=== PATIENT | female | born 1935 | race Caucasian/White ===

== ENCOUNTER → 2017-12-14 14:53 | Outpatient (CLI) | payer MEDICARE, SELFPAY ==
--- NOTE | 2017-12-14 15:04 | XR_ITS ---
XR chest 2V Ordering Physician: Foreign Stoddard MD Patient Age: 82 years: Female HISTORY: ITS.REASON: BRONCHITIS cough with TECHNIQUE: PA and lateral chest COMPARISON :January 2010 chest study. As well as cervical spine series from December 2016 FINDINGS left lung clear unremarkable no change Right lung. Minimal density medial RUL-. Question of subtle hazy infiltrate projected over the right first rib & and towards medial right apex. Subtle change here since prior CXR clinical correlation required. However the cervical spine series from December 2016 includes this area and shows some underlying chronic changes at in this region medial right upper lobe. Which in part contribute to this appearance. Also a slight increased markings are seen June 2000 CXR Heart is upper normal in size aorta mildly tortuous magi and mediastinal structures satisfactory Degenerative changes T-spine early marginal osteophytes throughout with degenerative disc space narrowing most evident at T10-T11 level IMPRESSION: 1. Slight hazy appearance medial aspect RUL . This in part reflects chronic changes as seen on previous studies, but question & suspect possible early infiltrate at medial RUL & projected over the right first rib end--. Clinical correlation required
== END ==
PROVIDERS: PCP Family Medicine; Visit Provider Family Medicine
DX: J40 Bronchitis, not specified as acute or chronic (principal)
CPT/HCPCS: 71046

== ENCOUNTER → 2018-04-08 09:52 | Outpatient (CLI) | payer MEDICARE, SELFPAY ==
--- NOTE | 2018-04-08 09:55 | MM_ITS ---
.. MM Dig screening mamm BI w/CAD CAD Screening ORDERING PHYSICIAN : Rey Collier MD PATIENT AGE: 83 years GENDER: Female HISTORY no hormones no new complaints noncontributory family history COMPARISON: Previous mammograms: March 2015, 2015, 2016.: TECHNIQUE: Standard CC and MLO images were obtained. R2 CAD reviewed. FINDINGS: Moderately dense breast bilaterally. Stable mild asymmetry. No new dominant mass nor suspicious calcifications. RIGHT BREAST:No new areas of concern. Follow-up in one year. Previous percutaneous biopsy clip at superior right breast. Upper-outer quadrant. LEFT BREAST:. No significant new findings. Minimal density at the lateral breast on cc view dissipates on MLO view and has been present since studies dating back to at least 2014, 2012. IMPRESSION: Stable mammogram. Follow-up in one year recommended . Moderately dense breast bilaterally but no significant new findings. BI-RADS Category: 2 Benign Finding(s) RECOMMENDED FOLLOW-UP: 1YR - 1 YEAR FOLLOW-UP (A letter has been sent to the patient regarding results of the study.)
== END ==
PROVIDERS: PCP Family Medicine; Visit Provider Obstetrics & Gynecology
DX: Z12.31 Encounter for screening mammogram for malignant neoplasm of breast (principal)
CPT/HCPCS: 77067

== ENCOUNTER 2018-06-07 08:45 | Observation (INO) ==
--- NOTE | 2018-06-07 08:59 | Emergency Department Note ---
ED Disposition Clinical Impression: Chest pain Qualifiers: Chest pain type: precordial pain Qualified Code(s): R07.2 - Precordial pain Disposition: Admitted as Observation Condition on Discharge: Fair Referrals: Foreign Stoddard MD [Primary Care Provider] - Madeleine Mathur MD [Staff Physician] - Time of Disposition: 10:35 - Critical Care Critical Care Time: No Attestation: On , the high probability of a clinically significant, sudden or life threatening deterioration of the following system(s) required my full and direct attention, intervention and personal management. The time I documented below is in addition to time spent performing reported procedures but includes the following listed in this critical care notation. Medical Decision Making - Medical Records Medical records reviewed: Yes: I reviewed the patient's medical records. - Roberto Inquiry Pt receiving controlled substance: No Roberto was queried for this patient: No Vital Signs: 06/07/18 08:46 06/07/18 09:02 06/07/18 09:06 Temperature 98.1 F 98.1 F Temperature Source Oral Oral Pulse Rate [Right Brachial] 62 64 64 Respiratory Rate 20 20 20 Blood Pressure [Right Arm] 133/70 125/62 115/70 Blood Pressure Mean [Right Arm] 91 83 85 Blood Pressure Source [Right Arm] Automatic Cuff Automatic Cuff Automatic Cuff Blood Pressure Position [Right Arm] Supine Sitting Sitting 02 Sat by Pulse Oximetry 97 91 L 92 L Oxygen Delivery Method Room Air Room Air Room Air 06/07/18 09:09 06/07/18 09:21 06/07/18 09:30 Temperature 98.1 F Temperature Source Oral Pulse Rate [Right Brachial] 68 68 60 Respiratory Rate 20 20 16 Blood Pressure [Right Arm] 96/58 115/71 126/64 Blood Pressure Mean [Right Arm] 70 85 84 Blood Pressure Source [Right Arm] Automatic Cuff Automatic Cuff Automatic Cuff Blood Pressure Position [Right Arm] Supine Supine Sitting 02 Sat by Pulse Oximetry 90 L 95 96 Oxygen Delivery Method Room Air Room Air Room Air 06/07/18 09:46 Temperature Temperature Source Pulse Rate [Right Brachial] 64 Respiratory Rate 16 Blood Pressure [Right Arm] 124/68 Blood Pressure Mean [Right Arm] 86 Blood Pressure Source [Right Arm] Automatic Cuff Blood Pressure Position [Right Arm] Sitting 02 Sat by Pulse Oximetry 95 Oxygen Delivery Method Room Air - Lab Data Lab results reviewed: Yes: I reviewed the patient's lab results. Lab Results 06/07/18 08:54: WBC 12.6 H, RBC 5.23, Hgb 16.5 H, Hct 50.8 H, MCV 97.1, MCH 31.4 H, MCHC 32.4, RDW 13.8, Plt Count 238, MPV 8.8, Neut % (Auto) 83.5 H, Lymph % (Auto) 9.8 L, [place] % (Auto) 3.4, Eos % (Auto) 2.9, Baso % (Auto) 0.3, Neut # (Auto) 10.5 H, Lymph # (Auto) 1.2, [place] # (Auto) 0.4, Eos # (Auto) 0.4, Baso # (Auto) 0.0 06/07/18 08:54: Sodium 142, Potassium 3.9, Chloride 106, Carbon Dioxide 27, Anion Gap 12.9, BUN 14, Creatinine 0.72, Estimated Creat Clear 39, Estimated GFR 78, Est GFR ( Amer) 94, Glucose 115 H, Calcium 9.5, Total Bilirubin 0.8, AST 11 L, ALT 20, Alkaline Phosphatase 81, Troponin I < 0.02, Total Protein 7.0, Albumin 3.4, Globulin 3.6 H, Albumin/Globulin Ratio 0.9 L Result diagrams: 06/07/18 08:54 06/07/18 08:54 Orders (Tests/Meds): ED MEDICATIONS Generic Name Dose Route Start Last Admin Trade Name Freq PRN Reason Stop Dose Admin Nitroglycerin 0.4 mg 06/07/18 08:59 06/07/18 09:01 Nitrostat 0.4mg Sl Tablet SL 07/07/18 08:58 0.4 mg Q5MINP PRN Administration Chest Pain Discontinued Medications Generic Name Dose Route Start Last Admin Trade Name Freq PRN Reason Stop Dose Admin Aspirin 324 mg 06/07/18 09:00 06/07/18 09:01 Aspirin 81mg Chewable Tablet PO 06/07/18 09:01 324 mg ONCE ONE Administration Sodium Chloride 1,000 mls @ 999 mls/hr 06/07/18 09:00 06/07/18 09:01 Sod Chlor 0.9% 1000ml Bag IV 06/07/18 10:00 999 mls/hr .Q1H1M CATRACHITA Administration Ondansetron HCl 4 mg 06/07/18 08:59 06/07/18 09:01 Zofran 4mg/2ml Vial IV 06/07/18 09:00 4 mg ONCE ONE Administration Pantoprazole Sodium 40 mg 06/07/18 09:11 06/07/18 09:21 Protonix 40mg Vial IV 06/07/18 09:12 40 mg ONCE ONE Administration Sodium Chloride 8 ml 06/07/18 09:11 06/07/18 09:21 Saline Flush 10ml Syringe IV 06/07/18 09:12 8 ml ONCE ONE Administration ORDERS Category Date Time Status XR chest portable Stat Exams 06/07/18 08:55 Taken Diarrhea Panel, PCR Stat Lab 06/07/18 09:10 Ordered - Radiology Data #1 Image(s): Chest Image Reviewed: Yes I reviewed the patient's radiology results, Yes I reviewed the patient's radiology image Preliminary Findings: Normal/NAD - ECG Data Tracing #1 I reviewed this ECG and interpreted as documented below: NSR with LVH and ? early repolarization changes. ECG initial impression date: 06/07/18 ECG initial impression time: 08:50 Normal Sinus Rhythm: Yes Ischemic changes: non-specific ST-T wave changes Chamber hypertrophy present: LVH ECG compared to prior tracings: there are no prior tracings available for comparison Chest Pain HPI - General Chief Complaint: Chest Pain Stated Complaint: chest pain Time Seen by Provider: 06/07/18 08:51 - History of Present Illness HPI narrative: Woke up with a heaviness in chest this morning around 8AM and nauseated and vomited up roast beef she had for dinner last night. No fever. Says she has had some diarrhea for the past 2 months as well. She has never had any problems with heart before. She quit smoking 45 years ago but she does drink 2 martini's or gin or wine per day Onset (ago): hour(s) Duration: constant Activity at onset: during rest, awoke with symptoms Pain location: substernal Quality: heaviness Pain radiation: none Relieving factors: nothing Exacerbating factors: nothing - Related Data Home Medications Medication Instructions Recorded Confirmed aspirin 81 mg tablet,delayed 81 mg PO DAILY tab 03/23/18 06/07/18 release cyanocobalamin (vit B-12) 1,000 1,000 mcg PO DAILY tab 03/23/18 06/07/18 mcg tablet naproxen sodium 220 mg capsule 220 mg PO BID 03/23/18 06/07/18 ramipril 10 mg capsule 10 mg PO DAILY cap 03/23/18 06/07/18 Allergies Allergy/AdvReac Type Severity Reaction Status Date / Time No Known Allergies Allergy Verified 03/30/18 13:55 [facility] History I have reviewed the patient's past medical history: Yes Medical History: Reports:: Hypertension Other Medical History: Reports: Other Comment: Osteoporosis, hypertension, Stress incontinence, Hernia, Memory loss/ Dementia Other Surgeries: Yes: Other Amputation: No Fractures: Yes Comment: [birth year]- Appendectomy- open. 1971- BTL. 1997- Cholecystectomy -open. Fx. Lt. elbow and wrist. 2009- Fx. Lt. shoulder - Social History Smoking Status: Never smoker Alcohol Intake: never Family Hx:: Stroke, Coronary Artery Disease, Hypertension, Cancer ROS Obtained: Yes All systems reviewed & no additional complaints - Constitutional Constitutional: Reports as per HPI - Eyes Eyes: Reports as per HPI - ENT Ears, Nose, Mouth, and Throat: Reports as per HPI - Cardiovascular Cardiovascular: Reports as per HPI - Respiratory Respiratory: Yes as per HPI - Gastrointestinal Gastrointestingal: Reports: as per HPI Physical Exam - General General appearance: alert, in no apparent distress - Head Head exam: atraumatic - Eye Eye exam: Present: normal appearance - ENT ENT exam: Present: normal exam, normal oropharynx - Neck Neck exam: Present: normal inspection - Chest Chest inspection: Present: normal inspection - Respiratory Respiratory exam: Present: normal lung sounds bilaterally - Cardiovascular Cardiovascular exam: Present: regular rate, normal rhythm - Abdominal Exam Abdominal exam: Present: soft, normal bowel sounds (non tender abdomen) - Extremities Exam Extremities exam: Present: normal inspection - Neurological Exam Neurological exam: Present: alert, oriented X3
[2018-06-07 09:02] LABS: Basophils % 0.3 % (0.1-2.0); Eosinophils # 0.4 K/mm3 (0.0-0.4); Eosinophils % 2.9 % (0.1-12.0); Hematocrit 50.8 % (37.0-47.0); Hemoglobin 16.5 g/dL (12.2-16.2); Lymphocytes # 1.2 K/mm3 (0.7-4.5); Lymphocytes % 9.8 K/mm3 (10-50); Mean Corpuscular HGB Conc 32.4 g/dL (31.8-35.4); Mean Corpuscular Hemoglobin 31.4 pg (27.0-31.2); Mean Corpuscular Volume 97.1 fl (81-99); Mean Platelet Volume 8.8 fl (7.4-10.4); Monocytes # 0.4 K/mm3 (0.1-1.0); Monocytes % 3.4 % (1.7-9.3); Neutrophils # 10.5 K/mm3 (1.8-7.8); Neutrophils % 83.5 % (37.0-80.0); Platelet Count 238 K/mm3 (142-424); Red Blood Count 5.23 M/mm3 (4.20-5.40); Red Cell Distribution Width 13.8 % (11.5-17.5); White Blood Count 12.6 K/mm3 (4.8-10.8)
[2018-06-07 09:15] LABS: Alanine Aminotransferase 20 U/L (12-78); Albumin Level 3.4 gm/dL (3.4-5.0); Albumin/Globulin Ratio 0.9 (1.1-1.8); Alkaline Phosphatase 81 U/L (46-116); Anion Gap 12.9 mEq/L (5-15); Aspartate Amino Transferase 11 U/L (15-37); Bilirubin,Total 0.8 mg/dL (0.2-1.0); Blood Urea Nitrogen 14 mg/dL (7-18); Calcium 9.5 mg/dL (8.5-10.1); Carbon Dioxide 27 mmol/L (21.0-32.0); Chloride 106 mmol/L (98-107); Globulin 3.6 gm/dl (1.3-3.2); Glucose 115 mg/dL (74-106); Potassium 3.9 mmoL/L (3.5-5.1); Sodium 142 mmol/L (136-145)
--- NOTE | 2018-06-07 10:55 | History & Physical Report ---
*Admission Date: 06/07/18 *Chief complaint: chest pain *History of present illness: Ms. Mcgarry is an 83-year-old female with a history of hypertension and osteoporosis who has been experiencing diarrhea for about the last 4-5 weeks. When she was up to the bathroom this morning she had some midsternal chest pressure and then vomited undigested food. She denies shortness of breath, palpitations, or radiation of discomfort. At that time she had her bring her to the emergency room for evaluation. She states that the pressure has persisted. She did receive a nitroglycerin in the emergency room without total relief. At the time of this exam she still has the pressure. With evaluation in the emergency room she was admitted for further evaluation and treatment with cardiology consult. She has already had her echocardiogram. She has had no further nausea or vomiting. She denies any upper respiratory signs or symptoms. She has not had a fever. [facility] [place] History Medical History: Reports:: Hypertension, Osteoporosis Denies:: Chronic Obstructive Pulmonary Disease (COPD), Coronary Artery Disease, Diabetes Mellitus Type 2, Gastroesophageal Reflux Disease(GERD) Other Medical History: Reports: Other (Shingles) Laterality Cases: Bilateral: Cataract Other Surgeries: Yes: Appendectomy, Cholecystectomy, Hernia Repair, Tubal Ligation, Other Amputation: No Fractures: Yes - *Social History Smoking Status: Never smoker Alcohol Intake: never Alcohol Intake Frequency:: 0-2 drinks per day - Psychiatric History Expresses thoughts of harming self/others: None Suicide Plan Description: No Plan *Family Hx:: Stroke, Coronary Artery Disease, Hypertension, Cancer Review of Systems - Constitutional Denies body ache(s), Denies fatigue, Denies fever(s), Denies headache(s), Denies lack of energy - ENT Denies dizziness, Denies ear pain, Denies headache(s), Denies sore throat - *Cardiovascular Reports chest pain, Reports chest pain at rest, Denies shortness of breath, Denies irregular heart rhythm, Denies radiating jaw, neck or arm pain, Denies fast heart rate - *Respiratory Denies chest congestion, Denies cough, Denies shortness of breath - *Gastrointestinal Reports change in stools, Reports loose stools, Reports nausea, Reports vomiting (She vomited once at home. It was mostly undigested food.), Denies abdominal pain, Denies coffee ground vomit, Denies constipation, Denies heartburn, Denies vomiting blood, Denies bright, red blood in stools, Denies black, tarry stools - *Musculoskeletal Reports joint pain (Left knee and back.) - *Neurologic Denies abnormal walking, Denies abnormal speech, Denies unsteadiness, Denies dizziness, Denies headache(s) - Psychiatric Reports abnormal sleep pattern Meds Home Medications Medication Instructions Recorded Confirmed Type aspirin 81 mg tablet,delayed 81 mg PO DAILY tab 03/23/18 06/07/18 History release cyanocobalamin (vit B-12) 1,000 1,000 mcg PO DAILY tab 03/23/18 06/07/18 History mcg tablet naproxen sodium 220 mg capsule 220 mg PO BID 03/23/18 06/07/18 History ramipril 10 mg capsule 10 mg PO DAILY cap 03/23/18 06/07/18 History Donepezil HCl [Aricept 10mg tablet] 10 mg PO HS 06/07/18 06/07/18 History Melatonin 1 mg Tablet 1 mg PO HS 06/07/18 06/07/18 History Tramadol HCl/Acetaminophen 37.5 mg PO NEEDED PRN 06/07/18 06/07/18 History Venlafaxine HCl [Effexor 37.5mg 37.5 mg PO DAILY 06/07/18 06/07/18 History tablet] Vitamin D3 1,000 Unit Cap 1,000 unit PO DAILY 06/07/18 06/07/18 History hydroCHLOROthiazide [HCTZ 12.5mg 12.5 mg PO DAILY 06/07/18 06/07/18 History capsule] Allergies Allergy/AdvReac Type Severity Reaction Status Date / Time No Known Allergies Allergy Verified 03/30/18 13:55 Exam Vital signs and Labs for Last 24 Hours: Temp Pulse Resp BP Pulse Ox 98.7 F 71 20 127/70 97 06/07/18 10:50 06/07/18 10:50 06/07/18 10:50 06/07/18 10:50 06/07/18 10:30 Laboratory Results - last 24 hr 06/07/18 08:54: WBC 12.6 H, RBC 5.23, Hgb 16.5 H, Hct 50.8 H, MCV 97.1, MCH 31.4 H, MCHC 32.4, RDW 13.8, Plt Count 238, MPV 8.8, Neut % (Auto) 83.5 H, Lymph % (Auto) 9.8 L, [place] % (Auto) 3.4, Eos % (Auto) 2.9, Baso % (Auto) 0.3, Neut # (Auto) 10.5 H, Lymph # (Auto) 1.2, [place] # (Auto) 0.4, Eos # (Auto) 0.4, Baso # (Auto) 0.0 06/07/18 08:54: Sodium 142, Potassium 3.9, Chloride 106, Carbon Dioxide 27, Anion Gap 12.9, BUN 14, Creatinine 0.72, Estimated Creat Clear 39, Estimated GFR 78, Est GFR ( Amer) 94, Glucose 115 H, Calcium 9.5, Total Bilirubin 0.8, AST 11 L, ALT 20, Alkaline Phosphatase 81, Troponin I < 0.02, Total Protein 7.0, Albumin 3.4, Globulin 3.6 H, Albumin/Globulin Ratio 0.9 L I & O for Last 24 hours: Intake & Output 06/04/18 06/05/18 06/06/18 06/07/18 11:59 11:59 11:59 11:59 Weight 125 lb Radiology Reports for the Last 24 Hours: Echo results are pending. Chest x-ray 06/07/2018 IMPRESSION: Negative chest, no acute finding - Constitutional no acute distress Comments: Sitting up in the bed working a crossword puzzle. Appears comfortable. - *Routine HEENT Exam Head: Present: normocephalic, atraumatic Eye: Present: PERRL. Absent: conjunctival icterus, scleral injection ENT: Present: mucous membranes moist, nares patent - *Routine Neck Exam Present: supple, full ROM. Absent: carotid bruit, lymphadenopathy, thyromegaly - *Routine Respiratory Exam Present: CTA bilaterally (Anteriorly and posteriorly). Absent: wheezes, crackles - *Routine Cardiovascular Exam Present: RRR, murmur - *Routine Abdominal Exam Present: soft, normoactive bowel sounds. Absent: tenderness, distended, guarding, organomegaly - *Routine Extremities Exam Present: full ROM, pulses intact. Absent: edema, calf tenderness - *Routine Neurological Exam Present: alert, oriented X3 H&P: Result - Labs Labs: Short CBC 06/07/18 Range/Units 08:54 WBC 12.6 H (4.8-10.8) K/mm3 Hgb 16.5 H (12.2-16.2) g/dL Hct 50.8 H (37.0-47.0) % Plt Count 238 (142-424) K/mm3 BMP 06/07/18 08:54 Sodium 142 Potassium 3.9 Chloride 106 Carbon Dioxide 27 BUN 14 Creatinine 0.72 Glucose 115 H Calcium 9.5 Cardiac Enzymes 06/07/18 Range/Units 08:54 Troponin I < 0.02 (0.00-0.06) ng/ml Liver Function 06/07/18 Range/Units 08:54 Total Bilirubin 0.8 (0.2-1.0) mg/dL AST 11 L (15-37) U/L ALT 20 (12-78) U/L Alkaline Phosphatase 81 (46-116) U/L Albumin 3.4 (3.4-5.0) gm/dL Assessment and Plan (1) Diarrhea Current visit: Yes Status: Acute Category: Medical Code(s): R19.7 - Diarrhea, unspecified (2) HTN (hypertension) Current visit: Yes Status: Acute Category: Medical Code(s): I10 - Essential (primary) hypertension (3) Chest pain Current visit: Yes Status: Acute Qualifiers: Qualified Code(s): R07.2 - Precordial pain Category: Medical Code(s): R07.9 - Chest pain, unspecified - Assessment and plan all Dx Assessment and Plan for all problems:: Troponins have been negative 2. Patient continues to have the midsternal pressure sensation. Cardiology is seeing patient at present and will follow their direction. Diarrhea panel has been ordered.
--- NOTE | 2018-06-07 11:54 | Pharmacy Consult Notes ---
[facility] Pharmacy VTE Monitoring - Patient Demographics Admission date: 06/07/18 Report Date: 06/07/18 Time: 11:53 Allergies/Adverse Reactions: Patient Allergies No Known Allergies Allergy (Verified 03/30/18 13:55) Height: 1.65 m Weight: 57.663 kg Patient Problems: Current Active Problems Chest pain (Acute) - VTE Risk Labs: VTE Related Lab Results Hgb 16.5 g/dL (12.2-16.2) H 06/07/18 08:54 Hct 50.8 % (37.0-47.0) H 06/07/18 08:54 Plt Count 238 K/mm3 (142-424) 06/07/18 08:54 BUN 14 mg/dL (7-18) 06/07/18 08:54 Creatinine 0.72 mg/dL (0.55-1.02) 06/07/18 08:54 Estimated Creat Clear 39 mL/min (0-300) 06/07/18 08:54 - Prophylaxis VTE Prophylaxis Ordered?: Yes Types of VTE Prophylaxis: TEDS Knee High Location of Applied Device: Bilateral Lower Extremeties - VTE Diagnosis Confirmed Treatment or plan recommended: Continue Current Treatment
--- NOTE | 2018-06-07 14:36 | Consult Report ---
History of Present Illness Consult date: 06/07/18 Requesting physician: Madeleine Mathur Consult reason: chest pain Chief complaint: chest discomfort, vomiting Additional Medical History:: 1. Hypertension, treated for many years 2. Decreased memory/Alzheimer's, patient is on Aricept with [facility] 3. Mild ETOH use daily 4. Family history of Alzheimer's History of present illness: 83-year-old white female with 4-6 weeks history of progressive diarrhea with some bowel urgency was awakened this morning with chest discomfort which prompted an urgent visit to the bathroom with subsequent vomiting of partially digested material from her supper last evening, in addition to her diarrhea. Patient denies any history of cardiac problems in the past. Patient was brought to the emergency department for further evaluation. She denies any recent antibiotic use. She does relate taking medications for cold-like symptoms in December of this year. She denies any bloody or dark bowel movements. She was admitted for further evaluation. Initial troponins have returned normal 2. EKG is sinus without acute changes. Preliminary echocardiogram has shown normal ejection fraction with only mild mitral and tricuspid regurgitation. Cardiology consulted for evaluation and recommendations. [facility] History Medical History: Reports:: Hypertension, Osteoporosis Denies:: Cancer, Chronic Obstructive Pulmonary Disease (COPD), Coronary Artery Disease, Diabetes Mellitus Type 1, Diabetes Mellitus Type 2, Gastroesophageal Reflux Disease(GERD), MRSA Other Medical History: Reports: Arthritis, Cataracts, Osteoporosis, Other ( Shingles) Laterality Cases: Bilateral: Cataract Other Surgeries: Yes: Appendectomy, Cholecystectomy, Hernia Repair, Tubal Ligation, Other Amputation: No Fractures: Yes - *Social History Educational Level: Completed College Smoking Status: Never smoker Tobacco Type: cigarettes Alcohol Intake: never Alcohol Intake Frequency:: 0-2 drinks per day Substance Use Type: denies use Occupational Status: retired Housing: house Household Members: spouse - Psychiatric History Expresses thoughts of harming self/others: None Suicide Plan Description: No Plan *Family Hx:: Stroke, Coronary Artery Disease, Hypertension, Cancer Meds Home Medications Medication Instructions Recorded Confirmed Type aspirin 81 mg tablet,delayed 81 mg PO DAILY tab 03/23/18 06/07/18 History release cyanocobalamin (vit B-12) 1,000 1,000 mcg PO DAILY tab 03/23/18 06/07/18 History mcg tablet naproxen sodium 220 mg capsule 220 mg PO BID 03/23/18 06/07/18 History ramipril 10 mg capsule 10 mg PO DAILY cap 03/23/18 06/07/18 History Donepezil HCl [Aricept 10mg tablet] 10 mg PO HS 06/07/18 06/07/18 History Melatonin 1 mg Tablet 1 mg PO HS 06/07/18 06/07/18 History Tramadol HCl/Acetaminophen 37.5 mg PO NEEDED PRN 06/07/18 06/07/18 History Venlafaxine HCl [Effexor 37.5mg 37.5 mg PO DAILY 06/07/18 06/07/18 History tablet] Vitamin D3 1,000 Unit Cap 1,000 unit PO DAILY 06/07/18 06/07/18 History hydroCHLOROthiazide [HCTZ 12.5mg 12.5 mg PO DAILY 06/07/18 06/07/18 History capsule] Allergies Allergy/AdvReac Type Severity Reaction Status Date / Time No Known Allergies Allergy Verified 03/30/18 13:55 Review of Systems - *Cardiovascular Reports chest pain - *Respiratory Denies shortness of breath - *Gastrointestinal Reports abdominal pain, Reports loose stools, Denies bright, red blood in stools - *Genitourinary Denies difficulty urinating - *Musculoskeletal Reports back pain - *Neurologic Denies abnormal walking, Denies abnormal speech, Denies unsteadiness, Denies dizziness, Denies headache(s) Exam Vital signs and Labs for Last 24 Hours: Temp Pulse Resp BP Pulse Ox 98.3 F 59 L 18 145/72 95 06/07/18 11:48 06/07/18 11:48 06/07/18 11:48 06/07/18 11:48 06/07/18 11:48 Laboratory Results - last 24 hr 06/07/18 08:54: WBC 12.6 H, RBC 5.23, Hgb 16.5 H, Hct 50.8 H, MCV 97.1, MCH 31.4 H, MCHC 32.4, RDW 13.8, Plt Count 238, MPV 8.8, Neut % (Auto) 83.5 H, Lymph % (Auto) 9.8 L, [place] % (Auto) 3.4, Eos % (Auto) 2.9, Baso % (Auto) 0.3, Neut # (Auto) 10.5 H, Lymph # (Auto) 1.2, [place] # (Auto) 0.4, Eos # (Auto) 0.4, Baso # (Auto) 0.0 06/07/18 08:54: Sodium 142, Potassium 3.9, Chloride 106, Carbon Dioxide 27, Anion Gap 12.9, BUN 14, Creatinine 0.72, Estimated Creat Clear 39, Estimated GFR 78, Est GFR ( Amer) 94, Glucose 115 H, Calcium 9.5, Total Bilirubin 0.8, AST 11 L, ALT 20, Alkaline Phosphatase 81, Troponin I < 0.02, Total Protein 7.0, Albumin 3.4, Globulin 3.6 H, Albumin/Globulin Ratio 0.9 L 06/07/18 10:50: Troponin I < 0.02 I & O for Last 24 hours: Intake & Output 06/05/18 06/06/18 06/07/18 06/08/18 11:59 11:59 11:59 11:59 Weight 127 lb 2 oz - *Routine Neck Exam Absent: JVD, carotid bruit - *Routine Respiratory Exam Present: CTA bilaterally - *Routine Cardiovascular Exam Present: RRR, murmur. Absent: gallop, rubs - *Routine Abdominal Exam Present: tenderness, distended. Absent: guarding, firm, rigid - *Routine Extremities Exam Absent: edema, calf tenderness - *Routine Neurological Exam Present: alert, oriented X3, moving all extremities Assessment and Plan (1) Diarrhea Current visit: Yes Status: Acute Category: Medical Code(s): R19.7 - Diarrhea, unspecified (2) HTN (hypertension) Current visit: Yes Status: Acute Category: Medical Code(s): I10 - Essential (primary) hypertension (3) Chest pain Current visit: Yes Status: Acute Qualifiers: Chest pain type: precordial pain Qualified Code(s): R07.2 - Precordial pain Category: Medical Code(s): R07.9 - Chest pain, unspecified - Assessment and plan all Dx Assessment and Plan for all problems:: 1. Isolated episode of chest pain with normal troponins, normal EKG and essentially normal echocardiogram. Patient is a MARA score of 1 (age greater than 65) and would therefore recommend stress testing with Myoview imaging as an outpatient once patient's diarrhea has improved or resolved. 2. If chest pain does recur, then would consider amlodipine for chest pain and blood pressure. At this point, would not add beta-kezia or diltiazem/ verapamil due to the patient's controlled heart rate in the 50s and 60s.
[2018-06-07 15:48] LABS: Microscopic, Urine URINE MICROSCOPIC (MICROSCOPIC)
[2018-06-07 15:51] LABS: Appearance,Urine CLEAR (Clear); Bilirubin,Urine Negative (Negative); Blood, Urine Negative (Negative); Color,Urine YELLOW (Yellow); Glucose,Urine (UA) Negative (Negative); Ketones,Urine Negative (Negative); Leukocyte Esterase,Urine Negative (Negative); Protein,Urine Negative (Negative); Specific Gravity, Urine <= 1.005 (1.005-1.030); Urobilinogen,Urine 0.2 EU/dl (0.2)
[2018-06-07 16:40] LABS: Bacteria,Urine Trace /lpf
--- NOTE | 2018-06-07 21:13 | Cardiology Report ---
PROCEDURE: 2-D M-mode and color Doppler study INDICATIONS FOR THE TEST: Chest pain + COPD Heart Murmur Tobacco Smoking Palpitations Fatigue+ Syncope Edema Hypertension+Diabetes Mellitus Rheumatic Fever SOB GARCÍA Obesity Hyperlipidemia Family History HD Additional History PATIENT INFORMATION HEIGHT: 65 WEIGHT:125 GENDER: Female B/P:115/70 2-D/M-MODE INTERPRETATION: 2-D MEASUREMENTS OBSERVED VALUES IN CMS Right Ventricular Dimension (RVDd) 2.1 Interventricular Septum (Thickness)(IVsd) 1.0 Left Ventricular Internal Dimensions(LVIDd) 4.0 Left Ventricular Posterior Wall (Thickness)(LVPWd) 0.8 Aortic Root 3.0 Aortic Cusp Separation 1.8 Left Atrial Dimensions (LAD) 3.7 2D 1. Left atrium is mildly enlarged, left ventricle is normal size, mild qualitative concentric left ventricular hypertrophy, visually estimated ejection fraction 55% with no obvious regional wall motion abnormality. 2. The right atrium and right ventricle are mildly enlarged with normal contractility. 3. The aortic valve is minimally thickened and fibrosed. 4. The mitral and tricuspid valve leaflets are minimally thickened 5. The pulmonic valve is poorly visualized. 6. No significant pericardial effusion noted. DOPPLER INTERROGATION: Doppler interrogation of the aortic, mitral and tricuspid valvular presence of mild mitral and tricuspid regurgitation, tricuspid regurgitant jet velocity insufficient for calculation of the right ventricular systolic pressure, grade 1 diastolic dysfunction seen with tissue Doppler evidence of raised left atrial pressure. CONCLUSION: 1. Mild biatrial enlargement, normal left ventricular size, mild concentric left ventricular hypertrophy, visually estimated ejection fraction 55% with no obvious regional wall motion abnormality, grade 1 diastolic dysfunction seen with tissue Doppler evidence of raised left atrial pressure. 2. Mild mitral and tricuspid regurgitation 3. No significant pericardial effusion noted.
[2018-06-08 06:11] LABS: Basophils % 0.5 % (0.1-2.0); Eosinophils # 0.2 K/mm3 (0.0-0.4); Eosinophils % 3.4 % (0.1-12.0); Hematocrit 44.4 % (37.0-47.0); Lymphocytes # 1.5 K/mm3 (0.7-4.5); Lymphocytes % 23.2 K/mm3 (10-50); Mean Corpuscular HGB Conc 31.2 g/dL (31.8-35.4); Mean Corpuscular Hemoglobin 30.9 pg (27.0-31.2); Mean Corpuscular Volume 98.9 fl (81-99); Mean Platelet Volume 9.1 fl (7.4-10.4); Monocytes # 0.3 K/mm3 (0.1-1.0); Monocytes % 4.9 % (1.7-9.3); Neutrophils # 4.3 K/mm3 (1.8-7.8); Neutrophils % 68.1 % (37.0-80.0); Platelet Count 193 K/mm3 (142-424); Red Blood Count 4.49 M/mm3 (4.20-5.40); White Blood Count 6.3 K/mm3 (4.8-10.8)
[2018-06-08 06:38] LABS: Anion Gap 10.6 mEq/L (5-15); Calcium 8.7 mg/dL (8.5-10.1); Chol/HDL Ratio 2.8 (1-3.5); Potassium 3.6 mmoL/L (3.5-5.1)
--- NOTE | 2018-06-08 07:41 | Progress Note ---
Internal Medicine - PN: Subj *Date: 06/08/18 *Time: 07:38 Interval history: Patient states that she did not sleep well last night. She did fall asleep after 3 AM. She denies chest pressure this morning, shortness of breath, and nausea. She has been eating without difficulty. She ambulates to the bathroom independently without problems. She is anxious to go home. Exam Vital signs and Labs for Last 24 Hours: Temp Pulse Resp BP Pulse Ox 98.5 F 58 L 18 144/72 96 06/08/18 04:00 06/08/18 04:00 06/08/18 04:00 06/08/18 04:00 06/08/18 04:00 Laboratory Results - last 24 hr 06/07/18 08:54: WBC 12.6 H, RBC 5.23, Hgb 16.5 H, Hct 50.8 H, MCV 97.1, MCH 31.4 H, MCHC 32.4, RDW 13.8, Plt Count 238, MPV 8.8, Neut % (Auto) 83.5 H, Lymph % (Auto) 9.8 L, [place] % (Auto) 3.4, Eos % (Auto) 2.9, Baso % (Auto) 0.3, Neut # (Auto) 10.5 H, Lymph # (Auto) 1.2, [place] # (Auto) 0.4, Eos # (Auto) 0.4, Baso # (Auto) 0.0 06/07/18 08:54: Sodium 142, Potassium 3.9, Chloride 106, Carbon Dioxide 27, Anion Gap 12.9, BUN 14, Creatinine 0.72, Estimated Creat Clear 39, Estimated GFR 78, Est GFR ( Amer) 94, Glucose 115 H, Calcium 9.5, Total Bilirubin 0.8, AST 11 L, ALT 20, Alkaline Phosphatase 81, Troponin I < 0.02, Total Protein 7.0, Albumin 3.4, Globulin 3.6 H, Albumin/Globulin Ratio 0.9 L 06/07/18 10:50: Troponin I < 0.02 06/07/18 15:40: Urine Color Yellow, Urine Appearance Clear, Urine pH 7.0, Ur Specific [place] <= 1.005, Urine Protein Negative, Urine Glucose (UA) Negative, Urine Ketones Negative, Urine Blood Negative, Urine Nitrate Negative, Urine Bilirubin Negative, Urine Urobilinogen 0.2, Ur Leukocyte Esterase Negative, Urine RBC None, Urine WBC None, Ur Squamous Epith Cells None, Urine Bacteria Trace 06/07/18 16:54: Troponin I < 0.02 06/07/18 22:50: Troponin I < 0.02 06/08/18 05:16: WBC 6.3 D, RBC 4.49, Hgb 14.0 D, Hct 44.4, MCV 98.9, MCH 30.9 , MCHC 31.2 L, RDW 14.0, Plt Count 193, MPV 9.1, Neut % (Auto) 68.1, Lymph % ( Auto) 23.2, [place] % (Auto) 4.9, Eos % (Auto) 3.4, Baso % (Auto) 0.5, Neut # (Auto ) 4.3, Lymph # (Auto) 1.5, [place] # (Auto) 0.3, Eos # (Auto) 0.2, Baso # (Auto) 0.0 06/08/18 05:16: Sodium 146 H, Potassium 3.6, Chloride 112 H, Carbon Dioxide 27, Anion Gap 10.6, BUN 6 L D, Creatinine 0.63, Estimated Creat Clear 39, Estimated GFR 90, Est GFR ( Amer) 109, Glucose 86 D, Calcium 8.7, Magnesium 2.0, Triglycerides 108, Cholesterol 179, LDL Cholesterol 92, VLDL Cholesterol 22, HDL Cholesterol 65, Cholesterol/HDL Ratio 2.8 I & O for Last 24 hours: Intake & Output 06/05/18 06/06/18 06/07/18 06/08/18 11:59 11:59 11:59 11:59 Intake Total 1804 / 1804 Output Total 750 / 750 Balance 1054 / 1054 Weight 127 lb 2 oz Radiology Reports for the Last 24 Hours: 06/07/2018 echocardiogram CONCLUSION: 1. Mild biatrial enlargement, normal left ventricular size, mild concentric left ventricular hypertrophy, visually estimated ejection fraction 55% with no obvious regional wall motion abnormality, grade 1 diastolic dysfunction seen with tissue Doppler evidence of raised left atrial pressure. 2. Mild mitral and tricuspid regurgitation 3. No significant pericardial effusion noted. - Constitutional no acute distress Comments: His just returned from the bathroom - *Routine Cardiovascular Exam Present: RRR (Monitor shows normal sinus rhythm with rate 60s-70s) - *Routine Abdominal Exam Present: soft, normoactive bowel sounds. Absent: tenderness - *Routine Extremities Exam Absent: edema, calf tenderness - *Routine Neurological Exam Present: alert, oriented X3 Good recall today Assessment and Plan (1) Diarrhea Current visit: Yes Status: Acute Category: Medical Code(s): R19.7 - Diarrhea, unspecified (2) HTN (hypertension) Current visit: Yes Status: Acute Category: Medical Code(s): I10 - Essential (primary) hypertension (3) Chest pain Current visit: Yes Status: Acute Qualifiers: Chest pain type: precordial pain Qualified Code(s): R07.2 - Precordial pain Category: Medical Code(s): R07.9 - Chest pain, unspecified (4) Dementia Current visit: Yes Status: Chronic Category: Medical Code(s): F03.90 - Unspecified dementia without behavioral disturbance
--- NOTE | 2018-06-08 08:16 | Discharge Summary ---
General - General Admission date:: 06/07/18 Discharge date: 06/08/18 HPI HPI: Ms. Mcgarry is an 83-year-old female with a history of hypertension and osteoporosis who had been experiencing diarrhea for about the last 4-5 weeks. When she was up to the bathroom the morning of admission she had some midsternal chest pressure and then vomited undigested food. She denied shortness of breath, palpitations, or radiation of discomfort. At that time she had her bring her to the emergency room for evaluation. She stated that the pressure persisted. She did receive a nitroglycerin in the emergency room without total relief. At the time of exam she still had the pressure. With evaluation in the emergency room she was admitted for further evaluation and treatment with cardiology consult. She had her echocardiogram. She had no further nausea or vomiting. She denied any upper respiratory signs or symptoms. She did not have a fever. Hospital Course Hospital Course: After admission patient had intermittent chest pressure. Day 1 she denied having any chest pressure and no shortness of breath. She was eating and drinking normally without nausea or vomiting. She ambulated independently to the bathroom without problems. Diarrhea was just about resolved and unable to get samples for PCR evaluation. Monitor showed a sinus rhythm with low in the 50s to the 70s without ectopy. Troponin I's were negative. Cardiology did see patient with the following assessment and plan 1. Isolated episode of chest pain with normal troponins, normal EKG and essentially normal echocardiogram. Patient is a MARA score of 1 (age greater than 65) and would therefore recommend stress testing with Myoview imaging as an outpatient once patient's diarrhea has improved or resolved. 2. If chest pain does recur, then would consider amlodipine for chest pain and blood pressure. At this point, would not add beta-kezia or diltiazem/ verapamil due to the patient's controlled heart rate in the 50s and 60s. On 06/08/2018 patient was comfortable and anxious to go home. She was discharged home in stable and satisfactory condition. She was to follow-up with Dr. Mathur in the office [facility] in one the week. Medications as listed Objective Vital signs: Temp Pulse Resp BP Pulse Ox 97.8 F 65 18 129/61 97 06/08/18 07:57 06/08/18 07:57 06/08/18 07:57 06/08/18 07:57 06/08/18 07:57 Narrative: - Constitutional no acute distress Comments: His just returned from the bathroom - *Routine Cardiovascular Exam Present: RRR (Monitor shows normal sinus rhythm with rate 60s-70s) - *Routine Abdominal Exam Present: soft, normoactive bowel sounds. Absent: tenderness - *Routine Extremities Exam Absent: edema, calf tenderness - *Routine Neurological Exam Present: alert, oriented X3 Good recall today Results Completed studies during hospitalization [Text1]: 06/07/2018 chest x-ray IMPRESSION: Negative chest, no acute finding 06/07/2018 echocardiogram CONCLUSION: 1. Mild biatrial enlargement, normal left ventricular size, mild concentric left ventricular hypertrophy, visually estimated ejection fraction 55% with no obvious regional wall motion abnormality, grade 1 diastolic dysfunction seen with tissue Doppler evidence of raised left atrial pressure. 2. Mild mitral and tricuspid regurgitation 3. No significant pericardial effusion noted. Labs on day of discharge: Labs from last 24 hours 06/08/18 06/08/18 06/07/18 05:16 05:16 22:50 WBC 6.3 D RBC 4.49 Hgb 14.0 D Hct 44.4 MCV 98.9 MCH 30.9 MCHC 31.2 L RDW 14.0 Plt Count 193 MPV 9.1 Neut % (Auto) 68.1 Lymph % (Auto) 23.2 [place] % (Auto) 4.9 Eos % (Auto) 3.4 Baso % (Auto) 0.5 Neut # (Auto) 4.3 Lymph # (Auto) 1.5 [place] # (Auto) 0.3 Eos # (Auto) 0.2 Baso # (Auto) 0.0 Sodium 146 H Potassium 3.6 Chloride 112 H Carbon Dioxide 27 Anion Gap 10.6 BUN 6 L D Creatinine 0.63 Estimated Creat Clear 39 Estimated GFR 90 Est GFR ( Amer) 109 Glucose 86 D Calcium 8.7 Magnesium 2.0 Total Bilirubin AST ALT Alkaline Phosphatase Troponin I < 0.02 Total Protein Albumin Globulin Albumin/Globulin Ratio Triglycerides 108 Cholesterol 179 LDL Cholesterol 92 VLDL Cholesterol 22 HDL Cholesterol 65 Cholesterol/HDL Ratio 2.8 Urine Color Urine Appearance Urine pH Ur Specific [place] Urine Protein Urine Glucose (UA) Urine Ketones Urine Blood Urine Nitrate Urine Bilirubin Urine Urobilinogen Ur Leukocyte Esterase Urine RBC Urine WBC Ur Squamous Epith Cells Urine Bacteria 06/07/18 06/07/18 06/07/18 16:54 15:40 10:50 WBC RBC Hgb Hct MCV MCH MCHC RDW Plt Count MPV Neut % (Auto) Lymph % (Auto) [place] % (Auto) Eos % (Auto) Baso % (Auto) Neut # (Auto) Lymph # (Auto) [place] # (Auto) Eos # (Auto) Baso # (Auto) Sodium Potassium Chloride Carbon Dioxide Anion Gap BUN Creatinine Estimated Creat Clear Estimated GFR Est GFR ( Amer) Glucose Calcium Magnesium Total Bilirubin AST ALT Alkaline Phosphatase Troponin I < 0.02 < 0.02 Total Protein Albumin Globulin Albumin/Globulin Ratio Triglycerides Cholesterol LDL Cholesterol VLDL Cholesterol HDL Cholesterol Cholesterol/HDL Ratio Urine Color Yellow Urine Appearance Clear Urine pH 7.0 Ur Specific [place] <= 1.005 Urine Protein Negative Urine Glucose (UA) Negative Urine Ketones Negative Urine Blood Negative Urine Nitrate Negative Urine Bilirubin Negative Urine Urobilinogen 0.2 Ur Leukocyte Esterase Negative Urine RBC None Urine WBC None Ur Squamous Epith Cells None Urine Bacteria Trace 06/07/18 06/07/18 08:54 08:54 WBC 12.6 H RBC 5.23 Hgb 16.5 H Hct 50.8 H MCV 97.1 MCH 31.4 H MCHC 32.4 RDW 13.8 Plt Count 238 MPV 8.8 Neut % (Auto) 83.5 H Lymph % (Auto) 9.8 L [place] % (Auto) 3.4 Eos % (Auto) 2.9 Baso % (Auto) 0.3 Neut # (Auto) 10.5 H Lymph # (Auto) 1.2 [place] # (Auto) 0.4 Eos # (Auto) 0.4 Baso # (Auto) 0.0 Sodium 142 Potassium 3.9 Chloride 106 Carbon Dioxide 27 Anion Gap 12.9 BUN 14 Creatinine 0.72 Estimated Creat Clear 39 Estimated GFR 78 Est GFR ( Amer) 94 Glucose 115 H Calcium 9.5 Magnesium Total Bilirubin 0.8 AST 11 L ALT 20 Alkaline Phosphatase 81 Troponin I < 0.02 Total Protein 7.0 Albumin 3.4 Globulin 3.6 H Albumin/Globulin Ratio 0.9 L Triglycerides Cholesterol LDL Cholesterol VLDL Cholesterol HDL Cholesterol Cholesterol/HDL Ratio Urine Color Urine Appearance Urine pH Ur Specific [place] Urine Protein Urine Glucose (UA) Urine Ketones Urine Blood Urine Nitrate Urine Bilirubin Urine Urobilinogen Ur Leukocyte Esterase Urine RBC Urine WBC Ur Squamous Epith Cells Urine Bacteria DS: Diagnosis - Discharge Diagnosis (1) Chest pain Status: Acute (2) Diarrhea Status: Chronic (3) HTN (hypertension) Status: Chronic (4) Dementia Status: Chronic Discharge Plan - Patient Discharge Instructions ACTIVITY: Continue current activity DIET: continue same diet, low salt diet, cardiac Patient Instructions: DI for Atypical Chest Pain - Follow up Plan Follow up with: Madeleine Mathur MD [Staff Physician] - 1 week Disposition: Home, Self-Snf Medications: Home Medications Medication Instructions Recorded Confirmed Type aspirin 81 mg tablet,delayed 81 mg PO DAILY tab 03/23/18 06/07/18 History release cyanocobalamin (vit B-12) 1,000 1,000 mcg PO DAILY tab 03/23/18 06/07/18 History mcg tablet naproxen sodium 220 mg capsule 220 mg PO BID 03/23/18 06/07/18 History ramipril 10 mg capsule 10 mg PO DAILY cap 03/23/18 06/07/18 History Donepezil HCl [Aricept 10mg tablet] 10 mg PO HS 06/07/18 06/07/18 History Melatonin 1 mg Tablet 1 mg PO HS 06/07/18 06/07/18 History Tramadol HCl/Acetaminophen 37.5 mg PO NEEDED PRN 06/07/18 06/07/18 History Venlafaxine HCl [Effexor 37.5mg 37.5 mg PO DAILY 06/07/18 06/07/18 History tablet] Vitamin D3 1,000 Unit Cap 1,000 unit PO DAILY 06/07/18 06/07/18 History hydroCHLOROthiazide [HCTZ 12.5mg 12.5 mg PO DAILY 06/07/18 06/07/18 History capsule] Prescriptions/Medication Reconciliation: New Nitroglycerin [Nitrostat 0.4mg SL Tablet] 0.4 mg SL Q5MINP PRN #30 tab.subl PRN Reason: Chest Pain Continue ramipril 10 mg capsule 10 mg PO DAILY cap aspirin 81 mg tablet,delayed release 81 mg PO DAILY tab naproxen sodium 220 mg capsule 220 mg PO BID cyanocobalamin (vit B-12) 1,000 mcg tablet 1,000 mcg PO DAILY tab Donepezil HCl [Aricept 10mg tablet] 10 mg PO HS Melatonin 1 mg Tablet 1 mg PO HS Venlafaxine HCl [Effexor 37.5mg tablet] 37.5 mg PO DAILY Vitamin D3 1,000 Unit Cap 1,000 unit PO DAILY hydroCHLOROthiazide [HCTZ 12.5mg capsule] 12.5 mg PO DAILY Tramadol HCl/Acetaminophen 37.5 mg PO NEEDED PRN PRN Reason: PAIN
== END 2018-06-08 10:30 | disposition home or self-care (01) ==
LOC: 2ND 08:45 → ER 08:45 → 2ND 11:01
PROVIDERS: ADMIT Emergency Medicine; ATTEND Family Medicine

== ENCOUNTER → 2018-06-22 13:33 | Outpatient (CLI) | payer MEDICARE, SELFPAY ==
--- NOTE | 2018-06-22 13:36 | XR_ITS ---
XR DEXA axial skeleton HISTORY: ITS.REASON: POST MENOPAUSAL ORDERING PHYSICIAN: Madeleine Mathur MD PATIENT AGE: 83 years COMPARISON: 04/06/2017 FINDINGS: The BMD measured at the Right femoral neck is 0.765 g/cm squared with a T score of -2.0 . This is considered Osteopenic according to the World Health Organization criteria. Fracture risk is Moderate. Treatment is advised. The L1L4 density has a T score of 0.8. The lumbar spine density has decreased by 1.5%. The hip density has increased by 1.2% compared to previous exam. IMPRESSION: Osteopenia with moderate fracture risk. Treatment is advised. Follow-up recommended June 2020
== END ==
PROVIDERS: Family Provider Family Medicine; PCP Family Medicine; Visit Provider Emergency Medicine
DX: Z13.820 Encounter for screening for osteoporosis (principal); Z78.0 Asymptomatic menopausal state
CPT/HCPCS: 77080

== ENCOUNTER → 2018-09-07 10:52 | Outpatient (POV) | payer MEDICARE, SELFPAY | PROVIDERS: Visit Provider Dermatology | DX: Z00.00 Encounter for general adult medical examination without abnormal findings (principal) ==

== ENCOUNTER → 2019-06-03 13:21 | Outpatient (CLI) | payer MEDICARE, SELFPAY ==
--- NOTE | 2019-06-03 13:28 | XR_ITS ---
XR wrist LT min 3V HISTORY: ITS.REASON: LT WRIST PAIN ORDERING PHYSICIAN: Madeleine Curtis MD PATIENT AGE: 84 years COMPARISON: None FINDINGS: There is prominent narrowing and sclerosis and partial subluxation of the first carpometacarpal joint. There is a curious ossifications resenting just beneath the proximal carpal bones on the lateral projection and sitting adjacent to the radial styloid on the oblique view and this probably is an old a bulge in an osteophyte from the radial styloid process. The carpal bones otherwise appear normal. The distal raises and ulna appear intact. There is generalized osteopenia. IMPRESSION: Marked osteoarthritic change at the base of the thumb., Possible old avulsion fracture of an osteophyte of the radial styloid process
== END ==
PROVIDERS: PCP Emergency Medicine; Visit Provider Emergency Medicine
DX: M25.532 Pain in left wrist (principal)
CPT/HCPCS: 73110

== ENCOUNTER 2019-06-30 11:00 | Outpatient (RCR) | payer MEDICARE, SELFPAY ==
--- NOTE | 2019-06-10 09:02 | HMH.OTOPEV ---
OT Inpatient Evaluation Rehab OT Outpatient Eval Start: 06/10/19 08:49 Freq: Status: Active Protocol: Document 06/10/19 08:50 TFRY (Rec: 06/10/19 09:02 TFRY [id number]) Electronically Signed By Reina Patel, OT 06/10/19 08:50 Outpatient Therapy Subjective History Subjective History This is a 84 year old right handed female referred to occupational therapy for acute left wrist pain. Patient's reports that patient fell approximately 1 month ago . Patient seen by physician who had wrist x-rayed with no new fractures of wrist. Chief Complaint Pain Symptom Type Ache,Sharp,Shooting Symptoms Relieved By OTC Meds Symptoms Aggravated By Physical Activity Prior Functional Limitations None Current Functional Limitations Lifting,Housework,Dressing, Sleeping Symptom Description Constant and Continuous Level of pain today (0-10) 3 Pain scale - at its best (0-10) 3 Pain scale - at its worst (0-10) 10 Wrist/Hand Eval Wrist Range of Motion Left Wrist Limitations of Range of Motion Pain Wrist Extension Active Range of Motion ( 38 degrees) Wrist Extension Passive Range of Motion 60 (degrees) Wrist Flexion Active Range of Motion ( 50 degrees) Wrist Flexion Passive Range of Motion ( 60 degrees) Wrist Radial Deviation Active Range of 25 Motion (degrees) Wrist Radial Deviation Passive Range of 30 Motion (degrees) Wrist Ulnar Deviation Active Range of 15 Motion (degrees) Wrist Ulnar Deviation Passive Range of 15 Motion (degrees) Wrist Manual Muscle Testing Left Wrist Extension Strength Grade 3 Fair Wrist Flexion Strength Grade 3 Fair Wrist Radial Deviation Strength Grade 3 Fair Wrist Ulnar Deviation Strength Grade 3 Fair Yardage Caller/Pinch Strength Yardage Caller Strength Measurement (lbs) 1 OT Outpatient Assessment Impairments Problems/Impairments Impaired Range of Motion, Impaired Strength,Impaired Lifting,Impaired Dressing, Impaired Shower/Bathing, Impaired Household Care, Subjective C/O Pain Prognosis Rehab Potential Fair Clinical Impression Consistent with Diagnosis Yes Short Term Goals Number of Weeks 3 Increase Range of Motion Yes: Left Wrist AROM - WFL in
== END 2019-06-30 11:05 | disposition home or self-care (01) ==
LOC: OT 11:00
PROVIDERS: PCP Emergency Medicine; Visit Provider Emergency Medicine
DX: M25.532 Pain in left wrist (principal)
CPT/HCPCS: 97014; 97110; 97140; 97165; G0283

== ENCOUNTER 2019-07-05 00:08 | Inpatient (IN) ==
[2019-07-05 00:30] LABS: Basophils % 0.5 % (0.1-2.0); Eosinophils # 0.2 K/mm3 (0.0-0.4); Eosinophils % 3.1 % (0.1-12.0); Hematocrit 46.9 % (37.0-47.0); Hemoglobin 14.9 g/dL (12.2-16.2); Lymphocytes # 1.4 K/mm3 (0.7-4.5); Lymphocytes % 18.4 % (10-50); Mean Corpuscular HGB Conc 31.9 g/dL (31.8-35.4); Mean Corpuscular Volume 97.1 fl (81-99); Mean Platelet Volume 8.2 fl (7.4-10.4); Monocytes # 0.4 K/mm3 (0.1-1.0); Neutrophils # 5.3 K/mm3 (1.8-7.8); Neutrophils % 73.1 % (37.0-80.0); Platelet Count 249 K/mm3 (142-424); Red Blood Count 4.83 M/mm3 (4.20-5.40); Red Cell Distribution Width 13.8 % (11.5-17.5); White Blood Count 7.3 K/mm3 (4.8-10.8)
[2019-07-05 00:35] LABS: Microscopic, Urine URINE MICROSCOPIC (MICROSCOPIC)
[2019-07-05 00:46] LABS: Albumin Level 2.7 gm/dL (3.4-5.0); Albumin/Globulin Ratio 0.8 (1.1-1.8); Anion Gap 17.9 mEq/L (5-15); Bilirubin,Total 0.3 mg/dL (0.2-1.0); Calcium 9.2 mg/dL (8.5-10.1); Globulin 3.5 gm/dl (1.3-3.2); Total Protein,Serum 6.2 gm/dL (6.4-8.2)
[2019-07-05 00:46] LABS: Amphetamine/Metha Screen,Urine Negative ng/mL (<1000); Barbiturates Screen,Urine Negative ng/mL (<200); Benzodiazepines Screen,Urine Negative ng/mL (<200); Cannabinoid Screen,Urine Negative ng/mL (<50); Cocaine Screen,Urine Negative ng/mL (<300); Methadone Screen,Urine Negative ng/mL (<300); Opiate Screen,Urine Negative ng/mL (<300); Phencyclidine Screen,Urine Negative ng/mL (<25)
[2019-07-05 00:47] LABS: C-Reactive Protein 0.5 mg/dL (0.0-0.9)
[2019-07-05 00:56] LABS: Appearance,Urine CLEAR (Clear); Bilirubin,Urine Negative (Negative); Blood, Urine Negative (Negative); Color,Urine YELLOW (Yellow); Glucose,Urine (UA) Negative (Negative); Ketones,Urine Negative (Negative); Leukocyte Esterase,Urine Negative (Negative); Protein,Urine Negative (Negative); Specific Gravity, Urine <= 1.005 (1.005-1.030); Urobilinogen,Urine 0.2 EU/dl (0.2)
[2019-07-05 01:32] LABS: Bacteria,Urine Trace /lpf; WBC,Urine Occasional #/hpf (0-3)
[2019-07-05 02:32] LABS: ABG Base Excess -3.6 mmol/L (-2.4-2.3); ABG HCO3 18.9 mmhg (22.0-26.0); ABG Oxygen Saturation 96 % (90-100); ABG PCO2 22.5 mmhg (35.0-45.0); ABG PH 7.54 mmol/L (7.35-7.45); ABG PO2 74.3 mmhg (80-100); ABG TCO2 19.6 mmhg (23-27)
[2019-07-05 02:34] LABS: Allen's Test Acceptable; Oxygen room air %
--- NOTE | 2019-07-05 02:59 | Emergency Department Note ---
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 Hip fracture Qualifiers: Encounter type: initial encounter Fracture type: closed Laterality: right Qualified Code(s): S72.001A - Fracture of unspecified part of neck of right femur, initial encounter for closed fracture Rib fractures Qualifiers: Encounter type: initial encounter Rib fracture type: multiple ribs Fracture type: closed Laterality: right Qualified Code(s): S22.41XA - Multiple fractures of ribs, right side, initial encounter for closed fracture Dementia Qualifiers: Dementia type: Alzheimer's disease Alzheimer's disease onset: unspecified onset Dementia behavioral disturbance: without behavioral disturbance Qualified Code(s): G30.9 - Alzheimer's disease, unspecified; F02.80 - Dementia in other diseases classified elsewhere without behavioral disturbance Fall Qualifiers: Encounter type: initial encounter Qualified Code(s): W19.XXXA - Unspecified fall, initial encounter Nasal fracture Qualifiers: Encounter type: initial encounter Fracture type: closed Qualified Code(s): S02.2XXA - Fracture of nasal bones, initial encounter for closed fracture Inguinal hernia Qualifiers: Obstruction and gangrene presence: without obstruction or gangrene Laterality: unilateral Recurrence: not specified as recurrent Qualified Code(s): K40.90 - Unilateral inguinal hernia, without obstruction or gangrene, not specified as recurrent Disposition: Admitted As Inpatient Condition on Discharge: Good Referrals: Foreign Stoddard MD [Primary Care Provider] - - Critical Care Critical Care Time: No Attestation: On 07/05/19, the high probability of a clinically significant, sudden or life t hreatening deterioration of the following system(s) required my full and direct attention, intervention and personal management. The time I documented below is in addition to time spent performing reported procedures but includes the following listed in this critical care notation. Medical Decision Making - Medical Records Medical records reviewed: Yes: I reviewed the patient's medical records. - Roberto Inquiry Pt receiving controlled substance: No Vital Signs: 07/05/19 00:10 07/05/19 02:09 07/05/19 02:38 Temperature 98.1 F 98.4 F Temperature Source Oral Rectal Pulse Rate [Right Brachial] 92 H 77 80 Respiratory Rate 18 18 16 Blood Pressure [Right Arm] 116/73 155/87 H 152/85 H Blood Pressure Mean [Right Arm] 87 109 107 Blood Pressure Source [Right Arm] Automatic Cuff Blood Pressure Position [Right Arm] Sitting 02 Sat by Pulse Oximetry 92 L 95 95 Oxygen Delivery Method Room Air Room Air Room Air - Lab Data Lab results reviewed: Yes: I reviewed the patient's lab results. Lab Results 07/05/19 00:15: WBC 7.3, RBC 4.83, Hgb 14.9, Hct 46.9, MCV 97.1, MCH 31.0, MCHC 31.9, RDW 13.8, Plt Count 249, MPV 8.2, Neut % (Auto) 73.1, Lymph % (Auto) 18.4, [place] % (Auto) 5.0, Eos % (Auto) 3.1, Baso % (Auto) 0.5, Neut # (Auto) 5.3, Lymph # (Auto) 1.4, [place] # (Auto) 0.4, Eos # (Auto) 0.2, Baso # (Auto) 0.0 07/05/19 00:15: Sodium 140, Potassium 3.9, Chloride 104, Carbon Dioxide 22, Anion Gap 17.9 H, BUN 10, Creatinine 0.66, Estimated Creat Clear 38, Estimated GFR 86, Est GFR ( Amer) 103, Glucose 120 H, Calcium 9.2, Total Bilirubin 0.3, AST 14 L, ALT 22, Alkaline Phosphatase 105, Total Protein 6.2 L, Albumin 2.7 L, Globulin 3.5 H, Albumin/Globulin Ratio 0.8 L 07/05/19 00:15: Total Creatine Kinase 36, C-Reactive Protein 0.5 07/05/19 00:15: ESR 22 07/05/19 00:28: Specimen Source Right radial, O2 % room air, ABG pH 7.54 H, ABG pCO2 22.5 L, ABG pO2 74.3 L, ABG HCO3 18.9 L, ABG Total CO2 19.6 L, ABG O2 Saturation 96, ABG Base Excess -3.6 L, Lang Test Acceptable 07/05/19 00:30: Urine Color Yellow, Urine Appearance Clear, Urine pH 6.0, Ur Specific [place] <= 1.005, Urine Protein Negative, Urine Glucose (UA) Negative, Urine Ketones Negative, Urine Blood Negative, Urine Nitrate Negative, Urine Bilirubin Negative, Urine Urobilinogen 0.2, Ur Leukocyte Esterase Negative, Urine WBC Occasional, Urine Bacteria Trace 07/05/19 00:30: Lactate 2.8 H 07/05/19 00:30: Urine Opiates Screen Negative, Urine Methadone Screen Negative, Ur Barbituates Screen Negative, Ur Phencyclidine Scrn Negative, Ur Amphetamines Screen Negative, U Benzodiazepines Scrn Negative, Urine Cocaine Screen Negative, U Marijuana (THC) Screen Negative Result diagrams: 07/05/19 00:15 07/05/19 00:15 Orders (Tests/Meds): ED MEDICATIONS Generic Name Dose Route Start Last Admin Trade Name Freq PRN Reason Stop Dose Admin Sodium Chloride 1,000 mls @ 999 mls/hr 07/05/19 00:45 07/05/19 01:59 Sod Chlor 0.9% 1000ml Bag IV 07/05/19 01:45 999 mls/hr .Q1H1M CATRACHITA Administration Discontinued Medications Generic Name Dose Route Start Last Admin Trade Name Freq PRN Reason Stop Dose Admin Ioversol 70 ml 07/05/19 02:13 07/05/19 02:18 Rad-Optiray 320 50ml Syringe IV 07/05/19 02:14 Not Given ONCE ONE Protocol Ioversol 40 ml 07/05/19 02:13 07/05/19 02:18 Rad-Optiray 350 100ml Vial IV 07/05/19 02:14 Not Given ONCE ONE Protocol Ioversol 70 ml 07/05/19 02:18 07/05/19 02:20 Rad-Optiray 350 100ml Vial IV 07/05/19 02:19 70 ml ONCE ONE Administration Protocol Ketorolac Tromethamine 30 mg 07/05/19 01:58 07/05/19 02:00 Toradol 30mg/Ml Vial IV 07/05/19 01:59 30 mg ONCE ONE Administration Sodium Chloride 40 ml 07/05/19 02:18 07/05/19 02:20 Rad-Ns 50ml Vial IV 07/05/19 02:19 40 ml ONCE ONE Administration Sodium Chloride 10 ml 07/05/19 02:18 07/05/19 02:20 Rad-Saline Flush 10ml Syringe IV 07/05/19 02:19 10 ml ONCE ONE Administration ORDERS Category Date Time Status CT Chest w/PE protocol [CT angio chest] Stat Cat Scan 07/05/19 00:[address] abdomen pelvis w con Stat Cat Scan 07/05/19 00:[address] cervical spine wo con Stat Cat Scan 07/05/19 00:[address] head/brain wo con Stat Cat Scan 07/05/19 00:[address] hip RT wo con Stat Cat Scan 07/05/19 01:[address] lumbar spine wo con Stat Cat Scan 07/05/19 00:28 Taken XR chest portable Stat Exams 07/05/19 00:30 Taken XR hip RT 2-3V w/pelvis Stat Exams 07/05/19 00:28 Taken Troponin I Stat Lab 07/05/19 02:55 Ordered Blood Culture Stat Micro 07/05/19 00:30 Received ECG Request by /Lub[place] Stat Y 07/05/19 00:21 Ordered - Radiology Data #1 Image(s): Chest, Pelvis, Hip Image Reviewed: Yes I reviewed the patient's radiology image Preliminary Findings: Abnormal (hip fx ) - CT Data CT Scan: Head, C-Spine, Abdomen, Pelvis, Chest, L-Spine Time Received: 03:[address] Reviewed: Yes: I have viewed the radiologist's interpretation Preliminary Findings: Abnormal (see reports -) - ECG Data Tracing #1 Normal Sinus Rhythm: Yes Ischemic changes: non-specific ST-T wave changes - Physician Consults Physician Consulted: benito Reason -: Admission Fall HPI - General Chief Complaint: Syncope Stated Complaint: Fall Time Seen by Provider: 07/05/19 00:20 Mode of Arrival: EMS Source of Information: Patient, Spouse, EMS, Medical Record Limitations: No Limitations Description of Symptoms (Recalled from ER Triage Doc. by RN): Pts found her in the floor passed out. She hit her head and has a laceration to her head. Pt c/o neck and leg pain. No other injuires reported at this time. Pt is awake but confused, she does not remember the fall. The pt and her denies any other illness the last few days. - Related Data Home Medications Medication Instructions Recorded Confirmed aspirin 81 mg tablet,delayed 81 mg PO DAILY tab 03/23/18 03/25/19 release cyanocobalamin (vit B-12) 1,000 1,000 mcg PO DAILY tab 03/23/18 03/25/19 mcg tablet ramipril 10 mg capsule 10 mg PO DAILY cap 03/23/18 03/25/19 Donepezil HCl [Aricept 10mg 10 mg PO HS 06/07/18 03/25/19 tablet] Bifidobacterium infantis 4 mg 4 mg PO DAILY 06/24/19 capsule acetaminophen ER 650 mg 650 mg PO Q12H PRN 06/24/19 06/24/19 tablet,extended release alendronate 70 mg tablet 70 mg PO QWEEK 06/24/19 ergocalciferol (vitamin D2) 50,000 50,000 unit PO QWEEK 06/24/19 unit capsule fluoxetine 40 mg capsule 40 mg PO DAILY 06/24/19 gabapentin 100 mg capsule 200 mg PO QHS cap 06/24/19 ibuprofen 200 mg tablet 200 mg PO Q6H 06/24/19 06/24/19 memantine 5 mg tablet 5 mg PO BID 06/24/19 Previous Rx's Medication Instructions Recorded Nitroglycerin [Nitrostat 0.4mg SL 0.4 mg SL Q5MINP PRN #30 tab.subl 06/08/18 Tablet] Allergies Allergy/AdvReac Type Severity Reaction Status Date / Time No Known Allergies Allergy Verified 07/05/19 00:21 [facility] History - Hepatitis A Screen Drug use history?: No High risk sexual behaviors?: No History of sexually transmitted infection?: No Currently employed?: No Childcare worker?: No Do you have indoor plumbing?: Yes Do you have electricity?: Yes Attestation statement:: This patient has been screened for Hepatitis A risk factors. I have reviewed the patient's past medical history: Yes Medical History: Reports:: Dementia, Hypertension, Osteoporosis Denies:: Cancer, Chronic Obstructive Pulmonary Disease (COPD), Coronary Cony ry Disease, Diabetes Mellitus Type 1, Diabetes Mellitus Type 2, Gastroesophageal Reflux Disease(GERD), MRSA Other Medical History: Reports: Arthritis, Cataracts, Osteoporosis, Other Comment: Osteoporosis, hypertension, Stress incontinence, Hernia, Memory loss/ Dementia Other Surgeries: Yes: Appendectomy, Cholecystectomy, Colonoscopy, Hernia Repair, Tubal Ligation, Other Amputation: No Fractures: Yes - Social History Smoking Status: Never smoker Alcohol Intake: current Alcohol Intake Frequency:: 0-2 drinks per day Substance Use Type: denies use Occupational Status: retired Housing: house Household Members: spouse Family Hx:: Stroke, Coronary Artery Disease, Hypertension, Cancer, Heart Attack Comment: Father-[place]@70's. Brother-[place]. Mother-[place] ROS Obtained: Yes All systems reviewed & no additional complaints - Constitutional Constitutional: Denies fever(s) - Eyes Eyes: Denies change in vision - ENT Ears, Nose, Mouth, and Throat: Denies sore throat - Cardiovascular Cardiovascular: Denies chest pain - Respiratory Respiratory: No cough - Gastrointestinal Gastrointestingal: Denies: abdominal pain - Genitourinary Female Genitourinary: Denies hematuria - Musculoskeletal Musculoskeletal: Reports as per HPI, Reports joint pain, Denies back pain, Reports limited range of motion - Integumentary/Breasts Skin/Breast: Denies rash - Neurologic Neurologic: Reports as per HPI, Reports confusion, Denies seizure-like activity Physical Exam - General General appearance: alert - Head Head exam: normocephalic - Eye Eye exam: Present: PERRL, EOMI. Absent: scleral icterus - ENT ENT exam: Present: mucous membranes dry - Neck Neck exam: Present: trachea midline - Respiratory Respiratory exam: Present: normal lung sounds bilaterally. Absent: respiratory distress - Cardiovascular Cardiovascular exam: Present: regular rate, systolic murmur, +S4 - Abdominal Exam Abdominal exam: Present: soft - Expanded Lower Extremity Exam Right Hip/Pelvis exam: Present: pelvis stable, pain on hip/pelvis palpation - Neurological Exam Neurological exam: Present: alert, CN II-XII intact - Psychiatric Psychiatric exam: Present: other (confused ) - Skin Skin exam: Present: other (2 cm rt temporal lac ) Procedures - Laceration Laceration 1 Site: scalp Side (If applicable): right Size (cm): 2 Description: linear Depth: involves subcutaneous layer Local Anesthetic: lidocaine 1% Amount of anesthesia used (mL): 5 Pre-repair: deep structures intact Skin layer closed with: other (gal) Number of sutures: 4 Technique: simple, interrupted
[2019-07-05 03:24] LABS: INR 1.06 (0.9-1.1)
--- NOTE | 2019-07-05 07:58 | Pharmacy Consult Notes ---
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 (Acute) Inguinal hernia (Acute) - VTE Risk Labs: VTE Related Lab Results Hgb 14.9 g/dL (12.2-16.2) 07/05/19 00:15 Hct 46.9 % (37.0-47.0) 07/05/19 00:15 Plt Count 249 K/mm3 (142-424) 07/05/19 00:15 PT 11.0 seconds (9.4-11.8) 07/05/19 00:15 INR 1.06 (0.9-1.1) 07/05/19 00:15 BUN 10 mg/dL (7-18) 07/05/19 00:15 Creatinine 0.66 mg/dL (0.55-1.02) 07/05/19 00:15 Estimated Creat Clear 38 mL/min (50-200) 07/05/19 00:15 Was VTE Risk Assessment Performed: Yes VTE Score: 4 VTE Risk Level: Low Risk - Prophylaxis VTE Prophylaxis Ordered?: Yes Types of VTE Prophylaxis: TEDS Knee High Location of Applied Device: Bilateral Lower Extremeties - VTE Diagnosis Confirmed Treatment or plan recommended: Continue Current Treatment
--- NOTE | 2019-07-05 09:04 | History & Physical Report ---
*Admission Date: 07/05/19 *Chief complaint: fall with alee fracture *History of present illness: Ms. Neff is an 84-year-old female with a history of hypertension, osteoporosis, Alzheimer's, and recent fall about 3 weeks ago resulting in left wrist injury who was brought to [facility] emergency room via ambulance after a fall at home. Patient states she does not remember the fall and does not know why she fell. Her states he found her in the kitchen on the floor about 2 minutes after the fall. With evaluation in the emergency room multiple CTs and x-rays were completed. She was noted to have a fracture of her right hip and a rib fracture. She was also noted to have a hematoma in the right forehead. She did require stapling of her wound in the right parietal area. She was then admitted with an orthopedic consultation. This a.m. at time of exam has been is in the room and assist with the history. Patient states she hurts in her right hip. She denies chest pain and shortness of breath. She has a Gill catheter. She is n.p.o. for possible surgery today. [facility] History Medical History: Reports:: Dementia, Depression, Hypertension, Osteoporosis Denies:: Cancer, Chronic Obstructive Pulmonary Disease (COPD), Coronary [place] Disease, Diabetes Mellitus Type 1, Diabetes Mellitus Type 2, Gastroesophageal Reflux Disease(GERD), Home Oxygen, MRSA *Have you ever received a pneumonia vaccine?: Yes *Have you received a flu vaccine this season?: Yes Other Medical History: Reports: Arthritis, Cataracts, Osteoporosis, Other Laterality Cases: Bilateral: Cataract Other Surgeries: Yes: Appendectomy, Cholecystectomy, Colonoscopy, Hernia Repair, Tubal Ligation, Other Amputation: No Fractures: Yes - *Social History Educational Level: Completed College Smoking Status: Never smoker Alcohol Intake: never Alcohol Intake Frequency:: 0-2 drinks per day Substance Use Type: denies use *Occupational Status:: retired Housing: house Household Members: spouse *Travel in the last 8 weeks: None - Psychiatric History Expresses thoughts of harming self/others: None Suicide Plan Description: No Plan Family Hx:: Heart Attack, Stroke Review of Systems - Constitutional Reports headache(s), Denies fever(s) - ENT Denies ear pain, Denies sore throat - *Cardiovascular Denies chest pain, Denies shortness of breath - *Respiratory Denies chest congestion, Denies cough, Denies shortness of breath - *Gastrointestinal Reports loose stools, Denies abdominal pain, Denies nausea, Denies vomiting - *Genitourinary Denies difficulty urinating - *Musculoskeletal Reports joint pain Comments: Has a cane at home but rarely uses it. She had an additional fall about 3 weeks ago and injured her left wrist. She has been going to physical therapy for this. - *Neurologic Reports confusion, Reports frequent falls, Reports headache(s), Denies abnormal speech, Denies dizziness, Denies seizure-like activity Meds Home Medications Medication Instructions Recorded Confirmed Type aspirin 81 mg tablet,delayed 81 mg PO DAILY tab 03/23/18 07/05/19 History release cyanocobalamin (vit B-12) 1,000 1,000 mcg PO DAILY tab 03/23/18 07/05/19 History mcg tablet ramipril 10 mg capsule 10 mg PO DAILY cap 03/23/18 07/05/19 History Donepezil HCl [Aricept 10mg 10 mg PO HS 06/07/18 07/05/19 History tablet] Nitroglycerin [Nitrostat 0.4mg SL 0.4 mg SL Q5MINP PRN #30 tab.subl 06/08/18 07/05/19 Rx Tablet] Bifidobacterium infantis 4 mg 4 mg PO DAILY 06/24/19 07/05/19 History capsule acetaminophen ER 650 mg 650 mg PO Q12H PRN 06/24/19 07/05/19 History tablet,extended release alendronate 70 mg tablet 70 mg PO QWEEK 06/24/19 07/05/19 History ergocalciferol (vitamin D2) 50,000 50,000 unit PO QWEEK 06/24/19 07/05/19 History unit capsule fluoxetine 40 mg capsule 40 mg PO DAILY 06/24/19 07/05/19 History gabapentin 100 mg capsule 200 mg PO QHS cap 06/24/19 07/05/19 History ibuprofen 200 mg tablet 200 mg PO Q6H 06/24/19 07/05/19 History memantine 5 mg tablet 5 mg PO BID 06/24/19 07/05/19 History Donepezil HCl [Aricept 10mg 10 mg PO HS 07/05/19 07/05/19 History tablet] Allergies Allergy/AdvReac Type Severity Reaction Status Date / Time No Known Allergies Allergy Verified 07/05/19 00:21 Exam Vital signs and Labs for Last 24 Hours: Temp Pulse Resp BP Pulse Ox 98.0 F 81 16 144/93 H 94 L 07/05/19 08:00 07/05/19 08:00 07/05/19 08:00 07/05/19 08:00 07/05/19 08:00 Laboratory Results - last 24 hr 07/05/19 00:15: WBC 7.3, RBC 4.83, Hgb 14.9, Hct 46.9, MCV 97.1, MCH 31.0, MCHC 31.9, RDW 13.8, Plt Count 249, MPV 8.2, Neut % (Auto) 73.1, Lymph % (Auto) 18.4, [place] % (Auto) 5.0, Eos % (Auto) 3.1, Baso % (Auto) 0.5, Neut # (Auto) 5.3, Lymph # (Auto) 1.4, [place] # (Auto) 0.4, Eos # (Auto) 0.2, Baso # (Auto) 0.0 07/05/19 00:15: Sodium 140, Potassium 3.9, Chloride 104, Carbon Dioxide 22, Anion Gap 17.9 H, BUN 10, Creatinine 0.66, Estimated Creat Clear 38, Estimated GFR 86, Est GFR ( Amer) 103, Glucose 120 H, Calcium 9.2, Total Bilirubin 0.3, AST 14 L, ALT 22, Alkaline Phosphatase 105, Total Protein 6.2 L, Albumin 2.7 L, Globulin 3.5 H, Albumin/Globulin Ratio 0.8 L 07/05/19 00:15: Total Creatine Kinase 36, C-Reactive Protein 0.5 07/05/19 00:15: ESR 22 07/05/19 00:15: Troponin I < 0.02 07/05/19 00:15: PT 11.0, INR 1.06 07/05/19 00:28: Specimen Source Right radial, O2 % room air, ABG pH 7.54 H, ABG pCO2 22.5 L, ABG pO2 74.3 L, ABG HCO3 18.9 L, ABG Total CO2 19.6 L, ABG O2 Saturation 96, ABG Base Excess -3.6 L, Lang Test Acceptable 08/20/19 00:30: Urine Color Yellow, Urine Appearance Clear, Urine pH 6.0, Ur Specific [place] <= 1.005, Urine Protein Negative, Urine Glucose (UA) Negative, Urine Ketones Negative, Urine Blood Negative, Urine Nitrate Negative, Urine Bilirubin Negative, Urine Urobilinogen 0.2, Ur Leukocyte Esterase Negative, Urine WBC Occasional, Urine Bacteria Trace 07/05/19 00:30: Lactate 2.8 H 07/05/19 00:30: Urine Opiates Screen Negative, Urine Methadone Screen Negative, Ur Barbituates Screen Negative, Ur Phencyclidine Scrn Negative, Ur Amphetamines Screen Negative, U Benzodiazepines Scrn Negative, Urine Cocaine Screen Negative, U Marijuana (THC) Screen Negative 07/05/19 05:35: Lactate 2.0 I & O for Last 24 hours: Intake & Output 07/02/19 07/03/19 07/04/19 07/05/19 11:59 11:59 11:59 11:59 Intake Total 1112 / 1112 Output Total 1800 / 1800 Balance -688 / -688 Weight 125 lb Radiology Reports for the Last 24 Hours: CT of cervical spine 07/05/2019 IMPRESSION: No acute finding CT of head 07/05/2019 IMPRESSION: No acute intracranial findings. Right frontal scalp hematoma Right hip x-ray 07/05/2019 IMPRESSION: Mildly impacted and minimally displaced right femoral neck fracture CT of lumbar spine 07/05/2019 IMPRESSION: 1. No acute fracture 2. Multilevel degenerate disc disease and facet arthritic change with bulging disc with foraminal narrowing CT of abdomen/pelvis 07/05/2019 IMPRESSION: 1. No definite acute intra-abdominal or pelvic findings 2. Right inguinal hernia containing a short segment of small bowel without obstruction 3. Nondistended fluid-filled loops of small and large bowel nonspecific but could be seen with enterocolitis. There is some mild thickening of the descending colon also nonspecific and could be related to nondistention or mild colitis 4. Right femoral neck fracture 5. Colonic diverticulosis without diverticulitis 6. 3 cm right ovarian cyst. Consider follow-up to confirm stability in this postmenopausal patient Chest x-ray 07/05/2019 IMPRESSION: No acute findings. Chest CT 07/05/2019 IMPRESSION: Minimally displaced right 10th rib fracture which could be acute or subacute with an older appearing right 9th rib fracture. No other acute findings. - Constitutional no acute distress, thin Comments: Lying on her back in bed. She appears comfortable. - *Routine HEENT Exam Head: Present: normocephalic, hematoma (Right forehead) ENT: Present: mucous membranes moist, oropharynx clear Comments: Staple closure of wound in right parietal area. - *Routine Neck Exam Present: supple. Absent: carotid bruit, lymphadenopathy, thyromegaly - *Routine Respiratory Exam Present: CTA bilaterally - *Routine Cardiovascular Exam Present: RRR - *Routine Abdominal Exam Present: soft, normoactive bowel sounds. Absent: tenderness, distended - *Routine Extremities Exam Absent: edema, calf tenderness Comments: Full range of motion of the left arm and left wrist. - *Routine Neurological Exam Present: alert. Absent: facial asymmetry Right pupil slightly larger than the left and is reactive Assessment and Plan (1) Hip fracture Current visit: Yes Status: Acute Qualifiers: Encounter type: initial encounter Fracture type: closed Laterality: right Qualified Code(s): S72.001A - Fracture of unspecified part of neck of right femur, initial encounter for closed fracture Category: Medical Code(s): S72.009A - Fracture of unspecified part of neck of unspecified femur, initial encounter for closed fracture (2) Osteoporosis Current visit: Yes Status: Chronic Category: Medical Code(s): M81.0 - Age- related osteoporosis without current pathological fracture (3) Fall Current visit: Yes Status: Acute Qualifiers: Encounter type: initial encounter Qualified Code(s): W19.XXXA - Unspecified fall, initial encounter Category: Medical Code(s): W19.XXXA - Unspecified fall, initial encounter (4) Depression Current visit: Yes Status: Chronic Category: Medical Code(s): F32.9 - Major depressive disorder, single episode, unspecified (5) Laceration Current visit: Yes Status: Acute Category: Medical (6) Nasal fracture Current visit: Yes Status: Acute Qualifiers: Encounter type: initial encounter Fracture type: closed Qualified Code(s): S02.2XXA - Fracture of nasal bones, initial encounter for closed fracture Category: Medical Code(s): S02.2XXA - Fracture of nasal bones, initial encou nter for closed fracture (7) Rib fractures Current visit: Yes Status: Acute Qualifiers: Encounter type: initial encounter Rib fracture type: multiple ribs Fracture type: closed Laterality: right Qualified Code(s): S22.41XA - Multiple fractures of ribs, right side, initial encounter for closed fracture Category: Medical Code(s): S22.39XA - Fracture of one rib, unspecified side, initial encounter for closed fracture (8) Dementia Current visit: Yes Status: Chronic Qualifiers: Dementia type: Alzheimer's disease Alzheimer's disease onset: unspecified onset Dementia behavioral disturbance: without behavioral disturbance Qualified Code(s): G30.9 - Alzheimer's disease, unspecified; F02.80 - Dementia in other diseases classified elsewhere without behavioral disturbance Category: Medical Code(s): F03.90 - Unspecified dementia without behavioral disturbance (9) Diarrhea Current visit: No Status: Chronic Category: Medical Code(s): R19.7 - Diarrhea, unspecified (10) HTN (hypertension) Current visit: No Status: Chronic Qualifiers: Hypertension type: essential hypertension Qualified Code(s): I10 - Essential (primary) hypertension Category: Medical Code(s): I10 - Essential (primary) hypertension (11) Left wrist injury Current visit: Yes Status: Chronic Category: Medical Code(s): S69.92XA - Unspecified injury of left wrist, hand and finger(s), initial encounter - Assessment and plan all Dx Assessment and Plan for all problems:: Patient will be seen by orthopedic surgeon. We will follow-up with cardiac evaluation with consult.
--- NOTE | 2019-07-05 10:31 | Consult Report ---
History of Present Illness Consult date: 07/05/19 Requesting physician: Foreign Stoddard Consult reason: pre-op evaluation Chief complaint: Hip pain, pre-op evaluation Additional Medical History:: 1. Hypertension, treated for many years A. Echo, 05/2018, 1. Mild biatrial enlargement, normal left ventricular size, mild concentric left ventricular hypertrophy, visually estimated ejection fraction 55% with no obvious regional wall motion abnormality, grade 1 diastolic dysfunction seen with tissue Doppler evidence of raised left atrial pressure. 2. Mild mitral and tricuspid regurgitation 3. No significant pericardial effusion noted. 2. Decreased memory/Alzheimer's, patient is on Aricept with [facility] 3. Mild ETOH use daily 4. Family history of Alzheimer's 5. Osteoporosis History of present illness: Ms. Neff is an 84-year-old female with a history of hypertension, osteoporosis, Alzheimer's, and recent fall about 3 weeks ago resulting in left wrist injury who was brought to [facility] emergency room via ambulance after a fall at home. Patient states she does not remember the fall and does not know why she fell. Her states he found her in the kitchen on the floor about 2 minutes after the fall. With evaluation in the emergency room multiple CTs and x-rays were completed. She was noted to have a fracture of her right hip and a rib fracture. She was also noted to have a hematoma in the right forehead. She did require stapling of her wound in the right parietal area. She was then admitted with an orthopedic consultation. This a.m. at time of exam has been is in the room and assist with the history. Patient states she hurts in her right hip. She denies chest pain and shortness of breath. She has a Gill catheter. She is n.p.o. for possible surgery today. The above per Julieth Yan APRN, for Dr. Stoddard. Cardiology asked to give pre-op evaluation for hip surgery. Pt is alone. She denies any chest pain at this time. Complaint is of rt hip pain. EKG is sinus with no acute changes and initial troponin is WNL. She was recently seen in the office with plans for echo and cy myoview to assess card iovascular risk but these tests had not been performed yet. [facility] History Medical History: Reports:: Dementia, Depression, Hypertension, Osteoporosis Denies:: Cancer, Chronic Obstructive Pulmonary Disease (COPD), Coronary Artery Disease, Diabetes Mellitus Type 1, Diabetes Mellitus Type 2, Gastroesophageal Reflux Disease(GERD), Home Oxygen, MRSA *Have you ever received a pneumonia vaccine?: Yes *Have you received a flu vaccine this season?: Yes Other Medical History: Reports: Arthritis, Cataracts, Osteoporosis, Other Laterality Cases: Bilateral: Cataract Other Surgeries: Yes: Appendectomy, Cholecystectomy, Colonoscopy, Hernia Repair, Tubal Ligation, Other Amputation: No Fractures: Yes - *Social History Educational Level: Completed College Smoking Status: Never smoker Alcohol Intake: never Alcohol Intake Frequency:: 0-2 drinks per day Substance Use Type: denies use *Occupational Status:: retired Housing: house Household Members: spouse *Travel in the last 8 weeks: None - Psychiatric History Expresses thoughts of harming self/others: None Suicide Plan Description: No Plan Pschychiatric History:: Reports:: Depression Family Hx:: Heart Attack, Stroke Meds Home Medications Medication Instructions Recorded Confirmed Type acetaminophen ER 650 mg 650 mg PO Q12H PRN 06/24/19 07/05/19 History tablet,extended release ergocalciferol (vitamin D2) 50,000 50,000 unit PO QWEEK 06/24/19 07/05/19 History unit capsule fluoxetine 40 mg capsule 40 mg PO DAILY 06/24/19 07/05/19 History gabapentin 100 mg capsule 200 mg PO QHS cap 06/24/19 07/05/19 History memantine 5 mg tablet 5 mg PO BID 06/24/19 07/05/19 History Donepezil HCl [Aricept 10mg 10 mg PO HS 07/05/19 07/05/19 History tablet] Potassium Chloride [Klor-con 20 20 meq PO DAILY 07/05/19 07/05/19 History mEq tablet] Ramipril 10 mg PO DAILY 07/05/19 07/05/19 History Allergies Allergy/AdvReac Type Severity Reaction Status Date / Time No Known Allergies Allergy Verified 07/05/19 00:21 Review of Systems - *Cardiovascular Denies chest pain, Denies shortness of breath - *Respiratory Denies cough, Denies shortness of breath - *Gastrointestinal Denies abdominal pain, Denies vomiting - *Genitourinary Denies blood in urine - *Musculoskeletal Reports joint pain, Reports back pain - *Neurologic Reports confusion, Reports frequent falls, Reports headache(s), Denies abnormal speech, Denies dizziness, Denies seizure-like activity Exam Vital signs and Labs for Last 24 Hours: Temp Pulse Resp BP Pulse Ox 98.0 F 81 16 144/93 H 94 L 07/05/19 08:00 07/05/19 08:00 07/05/19 08:00 07/05/19 08:00 07/05/19 08:00 Laboratory Results - last 24 hr 07/05/19 00:15: WBC 7.3, RBC 4.83, Hgb 14.9, Hct 46.9, MCV 97.1, MCH 31.0, MCHC 31.9, RDW 13.8, Plt Count 249, MPV 8.2, Neut % (Auto) 73.1, Lymph % (Auto) 18.4, [place] % (Auto) 5.0, Eos % (Auto) 3.1, Baso % (Auto) 0.5, Neut # (Auto) 5.3, Lymph # (Auto) 1.4, [place] # (Auto) 0.4, Eos # (Auto) 0.2, Baso # (Auto) 0.0 07/05/19 00:15: Sodium 140, Potassium 3.9, Chloride 104, Carbon Dioxide 22, A nion Gap 17.9 H, BUN 10, Creatinine 0.66, Estimated Creat Clear 38, Estimated GFR 86, Est GFR ( Amer) 103, Glucose 120 H, Calcium 9.2, Total Bilirubin 0.3, AST 14 L, ALT 22, Alkaline Phosphatase 105, Total Protein 6.2 L, Albumin 2.7 L, Globulin 3.5 H, Albumin/Globulin Ratio 0.8 L 07/05/19 00:15: Total Creatine Kinase 36, C-Reactive Protein 0.5 07/05/19 00:15: ESR 22 07/05/19 00:15: Troponin I < 0.02 07/05/19 00:15: PT 11.0, INR 1.06 07/05/19 00:28: Specimen Source Right radial, O2 % room air, ABG pH 7.54 H, ABG pCO2 22.5 L, ABG pO2 74.3 L, ABG HCO3 18.9 L, ABG Total CO2 19.6 L, ABG O2 Saturation 96, ABG Base Excess -3.6 L, Lang Test Acceptable 07/05/19 00:30: Urine Color Yellow, Urine Appearance Clear, Urine pH 6.0, Ur Specific [place] <= 1.005, Urine Protein Negative, Urine Glucose (UA) Negative, Urine Ketones Negative, Urine Blood Negative, Urine Nitrate Negative, Urine Bilirubin Negative, Urine Urobilinogen 0.2, Ur Leukocyte Esterase Negative, Urine WBC Occasional, Urine Bacteria Trace 07/05/19 00:30: Lactate 2.8 H 07/05/19 00:30: Urine Opiates Screen Negative, Urine Methadone Screen Negative, Ur Barbituates Screen Negative, Ur Phencyclidine Scrn Negative, Ur Amphetamines Screen Negative, U Benzodiazepines Scrn Negative, Urine Cocaine Screen Negative, U Marijuana (THC) Screen Negative 07/05/19 05:35: Lactate 2.0 I & O for Last 24 hours: Intake & Output 07/02/19 07/03/19 07/04/19 07/05/19 11:59 11:59 11:59 11:59 Intake Total 1112 / 1112 Output Total 1800 / 1800 Balance -688 / -688 Weight 125 lb - *Routine HEENT Exam Head: Present: normocephalic Eye: Present: EOMI, PERRL ENT: Present: mucous membranes moist - *Routine Neck Exam Present: supple. Absent: JVD, carotid bruit - *Routine Respiratory Exam Present: CTA bilaterally. Absent: accessory muscle use, rales, rhonchi, wheezes - *Routine Cardiovascular Exam Present: RRR. Absent: murmur, gallop, rubs - *Routine Abdominal Exam Present: soft. Absent: tenderness, distended, guarding - *Routine Extremities Exam Absent: cyanosis, edema, calf tenderness Comments: right leg held in flexion with patient complaining of pain in hip with any movement. Both feet warm with equal pulses. - *Routine Neurological Exam Present: alert, moving all extremities Assessment and Plan (1) Hip fracture Current visit: Yes Status: Acute Qualifiers: Encounter type: initial encounter Fracture type: closed Laterality: right Qualified Code(s): S72.001A - Fracture of unspecified part of neck of right femur, initial encounter for closed fracture Category: Medical Code(s): S72.009A - Fracture of unspecified part of neck of unspecified femur, initial encounter for closed fracture (2) Osteoporosis Current visit: Yes Status: Chronic Category: Medical Code(s): M81.0 - Age- related osteoporosis without current pathological fracture (3) Fall Current visit: Yes Status: Acute Qualifiers: Encounter type: initial encounter Qualified Code(s): W19.XXXA - Unspecified fall, initial encounter Category: Medical Code(s): W19.XXXA - Unspecified fall, initial encounter (4) Depression Current visit: Yes Status: Chronic Category: Medical Code(s): F32.9 - Major depressive disorder, single episode, unspecified (5) Laceration Current visit: Yes Status: Acute Category: Medical (6) Nasal fracture Current visit: Yes Status: Acute Qualifiers: Encounter type: initial encounter Fracture type: closed Qualified Code(s): S02.2XXA - Fracture of nasal bones, initial encounter for closed fracture Category: Medical Code(s): S02.2XXA - Fracture of nasal bones, initial encounter for closed fracture (7) Rib fractures Current visit: Yes Status: Acute Qualifiers: Encounter type: initial encounter Rib fracture type: multiple ribs Fracture type: closed Laterality: right Qualified Code(s): S22.41XA - Multiple fractures of ribs, right side, initial encounter for closed fracture Category: Medical Code(s): S22.39XA - Fracture of one rib, unspecified side, initial encounter for closed fracture (8) Dementia Current visit: Yes Status: Chronic Qualifiers: Dementia type: Alzheimer's disease Alzheimer's disease onset: unspecified onset Dementia behavioral disturbance: without behavioral disturbance Qualified Code(s): G30.9 - Alzheimer's disease, unspecified; F02.80 - Dementia in other diseases classified elsewhere without behavioral disturbance Category: Medical Code(s): F03.90 - Unspecified dementia without behavioral disturbance (9) Diarrhea Current visit: No Status: Chronic Category: Medical Code(s): R19.7 - Diarrhea, unspecified (10) HTN (hypertension) Current visit: No Status: Chronic Qualifiers: Hypertension type: essential hypertension Qualified Code(s): I10 - Essential (primary) hypertension Category: Medical Code(s): I10 - Essential (primary) hypertension (11) Left wrist injury Current visit: Yes Status: Chronic Category: Medical Code(s): S69.92XA - Unspecified injury of left wrist, hand and finger(s), initial encounter - Assessment and plan all Dx Assessment and Plan for all problems:: 1. Preliminary echo results appear unchanged from 05/2018 study. With no complaints of chest pain, no acute changes in EKG and normal troponin, would recommend proceeding with surgery. Pt is an increased but acceptable risk from a cardiac standpoint. 2. Resume home meds post-operatively. 3. Discussed with Dr. Lion
--- NOTE | 2019-07-05 12:25 | Consult Report ---
*Admission Date: 07/05/19 *Reason for consult:: R hip fracture *History of present illness: Mrs. Neff is a very pleasant 84-year-old female admitted overnight after a fall at home earlier in the evening. She was found on the kitchen floor by her , who did not witness the fall and is unsure how/why she fell. The patient is amnestic to the event but LOC not suspected; she has baseline dementia. She was transported via EMS to [facility], where a right hip fracture was diagnosed. A alvarez catheter was placed for comfort, pain medication was administered, and she was kept NPO after midnight in anticipation of surgery today. She denies baseline chest pain or shortness of breath with exertion; no complaints of these symptoms currently. She sustained a rib fracture and scalp laceration in the fall as well. She had a fall around 3 weeks ago in which she injured her left wrist; she has been doing therapy for this. She has been seen and cleared for surgery today by Dr. Stoddard and the cardiology service. 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 She lives with her in a historic multi-level home and ambulates independently without assistive device; she uses a cane only if absolutely necessary. Review of Systems - Review of Systems Review of systems:: pertinent systems reviewed and negative unless documented below - *Neurologic Reports confusion, Reports frequent falls, Reports headache(s), Denies abnormal speech, Denies dizziness, Denies seizure-like activity [facility] History I have reviewed the patient's past medical history: Yes Medical History: Reports:: Dementia, Depression, Hypertension, Osteoporosis Denies:: Cancer, Chronic Obstructive Pulmonary Disease (COPD), Coronary Artery Disease, Diabetes Mellitus Type 1, Diabetes Mellitus Type 2, Gastroesophageal Reflux Disease(GERD), Home Oxygen, MRSA *Have you ever received a pneumonia vaccine?: Yes *Have you received a flu vaccine this season?: Yes Other Medical History: Reports: Arthritis, Cataracts, Osteoporosis, Other Laterality Cases: Bilateral: Cataract Other Surgeries: Yes: Appendectomy, Cholecystectomy, Colonoscopy, Hernia Repair, Tubal Ligation, Other Amputation: No Fractures: Yes - *Social History Educational Level: Completed College Smoking Status: Never smoker Alcohol Intake: never Alcohol Intake Frequency:: 0-2 drinks per day Substance Use Type: denies use *Occupational Status:: retired Housing: house Household Members: spouse *Travel in the last 8 weeks: None - Psychiatric History Expresses thoughts of harming self/others: None Suicide Plan Description: No Plan Pschychiatric History:: Reports:: Depression Family Hx:: Heart Attack, Stroke Meds Home Medications Medication Instructions Recorded Confirmed Type acetaminophen ER 650 mg 650 mg PO Q12H PRN 06/24/19 07/05/19 History tablet,extended release ergocalciferol (vitamin D2) 50,000 50,000 unit PO WEEKLY 06/24/19 07/05/19 History unit capsule fluoxetine 40 mg capsule 40 mg PO DAILY 06/24/19 07/05/19 History gabapentin 100 mg capsule 200 mg PO HS cap 06/24/19 07/05/19 History memantine 5 mg tablet 5 mg PO BID 06/24/19 07/05/19 History Donepezil HCl [Aricept 10mg 10 mg PO HS 07/05/19 07/05/19 History tablet] Potassium Chloride [Klor-con 20 20 meq PO DAILY 07/05/19 07/05/19 History mEq tablet] Ramipril 10 mg PO DAILY 07/05/19 07/05/19 History Allergies Allergy/AdvReac Type Severity Reaction Status Date / Time No Known Allergies Allergy Verified 07/05/19 00:21 Exam Vital signs and Labs for Last 24 Hours: Temp Pulse Resp BP Pulse Ox 98.0 F 81 16 144/93 H 94 L 07/05/19 08:00 07/05/19 08:00 07/05/19 08:00 07/05/19 08:00 07/05/19 08:00 Laboratory Results - last 24 hr 07/05/19 00:15: WBC 7.3, RBC 4.83, Hgb 14.9, Hct 46.9, MCV 97.1, MCH 31.0, MCHC 31.9, RDW 13.8, Plt Count 249, MPV 8.2, Neut % (Auto) 73.1, Lymph % (Auto) 18.4, Sampson % (Auto) 5.0, Eos % (Auto) 3.1, Baso % (Auto) 0.5, Neut # (Auto) 5.3, Lymph # (Auto) 1.4, Sampson # (Auto) 0.4, Eos # (Auto) 0.2, Baso # (Auto) 0.0 07/05/19 00:15: Sodium 140, Potassium 3.9, Chloride 104, Carbon Dioxide 22, Anion Gap 17.9 H, BUN 10, Creatinine 0.66, Estimated Creat Clear 38, Estimated GFR 86, Est GFR ( Amer) 103, Glucose 120 H, Calcium 9.2, Total Bilirubin 0.3, AST 14 L, ALT 22, Alkaline Phosphatase 105, Total Protein 6.2 L, Albumin 2.7 L, Globulin 3.5 H, Albumin/Globulin Ratio 0.8 L 07/05/19 00:15: Total Creatine Kinase 36, C-Reactive Protein 0.5 07/05/19 00:15: ESR 22 07/05/19 00:15: Troponin I < 0.02 07/05/19 00:15: PT 11.0, INR 1.06 07/05/19 00:28: Specimen Source Right radial, O2 % room air, ABG pH 7.54 H, ABG pCO2 22.5 L, ABG pO2 74.3 L, ABG HCO3 18.9 L, ABG Total CO2 19.6 L, ABG O2 Saturation 96, ABG Base Excess -3.6 L, Lang Test Acceptable 07/05/19 00:30: Urine Color Yellow, Urine Appearance Clear, Urine pH 6.0, Ur Specific [place] <= 1.005, Urine Protein Negative, Urine Glucose (UA) Negative, Urine Ketones Negative, Urine Blood Negative, Urine Nitrate Negative, Urine Bilirubin Negative, Urine Urobilinogen 0.2, Ur Leukocyte Esterase Negative, Urine WBC Occasional, Urine Bacteria Trace 07/05/19 00:30: Lactate 2.8 H 07/05/19 00:30: Urine Opiates Screen Negative, Urine Methadone Screen Negative, Ur Barbituates Screen Negative, Ur Phencyclidine Scrn Negative, Ur Amphetamines Screen Negative, U Benzodiazepines Scrn Negative, Urine Cocaine Screen Negative, U Marijuana (THC) Screen Negative 07/05/19 05:35: Lactate 2.0 I & O for Last 24 hours: Intake & Output 07/03/19 07/04/19 07/05/19 07/06/19 11:59 11:59 11:59 11:59 Intake Total 1112 / 1112 Output Total 1800 / 1800 Balance -688 / -688 Weight 125 lb - Constitutional no acute distress, thin - *Routine HEENT Exam Head: Present: laceration (scalp laceration; stapled in ER), hematoma Eye: Present: EOMI ENT: Present: mucous membranes moist - *Routine Respiratory Exam Present: CTA bilaterally. Absent: accessory muscle use, rhonchi, wheezes - *Routine Cardiovascular Exam Present: RRR - *Routine Abdominal Exam Present: soft. Absent: tenderness - *Routine Exam Comments: alvarez cath to gravity - *Routine Extremities Exam Comments: RLE shortened and externally rotated no ecchymosis, abrasions or lacerations over R hip R hip tender to palpation; pain with logroll, ROM deferred +DF/PF/EHL RLE SILT distally RLE R calf soft, non-tender, negative Homans palpable pedal pulses RLE, foot warm - *Routine Skin Exam Present: intact. Absent: erythema, lesions, ecchymosis - *Routine Neurological Exam Present: alert, oriented X3, moving all extremities, normal tone, hearing grossly intact. Absent: sensory deficit, motor deficit, altered mental status Results - Labs Result Diagrams: 07/05/19 00:15 07/05/19 00:15 Labs: Abnormal lab results 07/05/19 07/05/19 07/05/19 Range/Units 00:15 00:28 00:30 ABG pH 7.54 H (7.35-7.45) mmol/L ABG pCO2 22.5 L (35.0-45.0) mmhg ABG pO2 74.3 L (80-100) mmhg ABG HCO3 18.9 L (22.0-26.0) mmhg ABG Total CO2 19.6 L (23-27) mmhg ABG Base Excess -3.6 L (-2.4-2.3) mmol/L Anion Gap 17.9 H (5-15) mEq/L Glucose 120 H (74-106) mg/dL Lactate 2.8 H (0.4-2.0) mmol/L AST 14 L (15-37) U/L Total Protein 6.2 L (6.4-8.2) gm/dL Albumin 2.7 L (3.4-5.0) gm/dL Globulin 3.5 H (1.3-3.2) gm/dl Albumin/Globulin Ratio 0.8 L (1.1-1.8) H & H 07/05/19 Range/Units 00:15 Hgb 14.9 (12.2-16.2) g/dL Hct 46.9 (37.0-47.0) % Coagulation 07/05/19 Range/Units 00:15 INR 1.06 (0.9-1.1) All other labs normal. - Diagnostic results Hip x-ray: image reviewed (displaced femoral neck fracture R hip) Assessment and Plan (1) Hip fracture Current visit: Yes Status: Acute Qualifiers: Encounter type: initial encounter Fracture type: closed Laterality: right Qualified Code(s): S72.001A - Fracture of unspecified part of neck of right femur, initial encounter for closed fracture Category: Medical Code(s): S72.009A - Fracture of unspecified part of neck of unspecified femur, initial encounter for closed fracture (2) Osteoporosis Current visit: Yes Status: Chronic Category: Medical Code(s): M81.0 - Age- related osteoporosis without current pathological fracture (3) Fall Current visit: Yes Status: Acute Qualifiers: Encounter type: initial encounter Qualified Code(s): W19.XXXA - Unspecified fall, initial encounter Category: Medical Code(s): W19.XXXA - Unspecified fall, initial encounter (4) Laceration Current visit: Yes Status: Acute Category: Medical (5) Nasal fracture Current visit: Yes Status: Acute Qualifiers: Encounter type: initial encounter Fracture type: closed Qualified Code(s): S02.2XXA - Fracture of nasal bones, initial encounter for closed fracture Category: Medical Code(s): S02.2XXA - Fracture of nasal bones, initial encounter for closed fracture (6) Rib fractures Current visit: Yes Status: Acute Qualifiers: Encounter type: initial encounter Rib fracture type: multiple ribs Fracture type: closed Laterality: right Qualified Code(s): S22.41XA - Multiple fractures of ribs, right side, initial encounter for closed fracture Category: Medical Code(s): S22.39XA - Fracture of one rib, unspecified side, initial encounter for closed fracture (7) Dementia Current visit: Yes Status: Chronic Qualifiers: Dementia type: Alzheimer's disease Alzheimer's disease onset: unspecified onset Dementia behavioral disturbance: without behavioral disturbance Qualified Code(s): G30.9 - Alzheimer's disease, unspecified; F02.80 - Dementia in other diseases classified elsewhere without behavioral disturbance Category: Medical Code(s): F03.90 - Unspecified dementia without behavioral disturbance - Assessment and plan all Dx Assessment and Plan for all problems:: 84yo F with R femoral neck fracture -- the fracture is mildly displaced and comminuted, I do not believe it is amenable to pinning and the patient would not have a good result if this were attempted; I recommend hemiarthroplasty -- I discussed my recommendations with the patient and her , and after discussing the risks, benefits and alternatives to the procedure, informed consent was obtained -- 1g Ancef account relationship manager to OR -- continue alvarez, pain meds, and bed rest -- to OR today for hemiarthroplasty R hip
--- NOTE | 2019-07-05 16:01 | Progress Note ---
[facility] Anesthesia Checklist - Structural Data Admitted From: Inpatient Planned Operative Procedure/s: orif r hip Consent for Planned Operative Procedure(s) Verified: Yes - Airway Assessment C-Spine Mobility Assessed: Yes TMJ Mobility Assessed: Yes Dentition: Good Dentition - Neurological Assessment Level of Consciousness: Awake, Alert, Appropriate - Anesthesia Plan Anesthesia Risk discussed: Yes Anesthesia Plan: Verified ASA Class: II Anesthesia Type: Spinal [facility] History I have reviewed the patient's past medical history: Yes Medical History: Reports:: Dementia, Depression, Hypertension, Osteoporosis Denies:: Cancer, Chronic Obstructive Pulmonary Disease (COPD), Coronary Artery Disease, Diabetes Mellitus Type 1, Diabetes Mellitus Type 2, Gastroesophageal Reflux Disease(GERD), Home Oxygen, MRSA *Have you ever received a pneumonia vaccine?: Yes *Have you received a flu vaccine this season?: Yes Other Medical History: Reports: Arthritis, Cataracts, Osteoporosis, Other Laterality Cases: Bilateral: Cataract Other Surgeries: Yes: Appendectomy, Cholecystectomy, Colonoscopy, Hernia Repair, Tubal Ligation, Other Amputation: No Fractures: Yes - *Social History Educational Level: Completed College Smoking Status: Never smoker Alcohol Intake: never Alcohol Intake Frequency:: 0-2 drinks per day Substance Use Type: denies use *Occupational Status:: retired Housing: house Household Members: spouse *Travel in the last 8 weeks: None - Psychiatric History Expresses thoughts of harming self/others: None Suicide Plan Description: No Plan Pschychiatric History:: Reports:: Depression Family Hx:: Heart Attack, Stroke
--- NOTE | 2019-07-05 16:01 | Progress Note ---
[facility] Anesthesia Record Part I Intake, IV Amount: 1,800 Estimated blood loss (mL): 250 Urine output (mL): 250 Blood Pressure: 120/80 SaO2: 99 Pulse Rate: 64 Respiratory Rate: 12 Temperature: 97.6 F Patient is:: Drowsy, Stable Stable to PACU at:: 15:55
--- NOTE | 2019-07-05 16:02 | Progress Note ---
[facility] Anesthesia Record Part II Discharge Time: 16:25 Destination: floor PACU nurse assessment reviewed?: Yes Patient Condition:: Good Anesthesia Complications:: None Swallowing reflex intact?: Yes Cyanosis?: No
--- NOTE | 2019-07-05 17:05 | Electrocardiograph Report ---
APPROVED REPORT Exam: Resting ECG HR:68 bpm ECG Measurements Heart Rate 68 AXES AK 180 P 66 QRSd 78 QRS -2 QT 466 T28 QTc 495 <Conclusion> Normal sinus rhythm Minimal voltage criteria for LVH, may be normal variant Prolonged QT NDST-T Changes Abnormal ECG Electronically signed by : Dick Tyler, 07/05/2019 17:05:01
--- NOTE | 2019-07-05 18:13 | Operative Note ---
Date of procedure: 07/05/19 Pre-op Diagnosis:: RIGHT femoral neck fracture Post-op Diagnosis:: RIGHT femoral neck fracture Procedure performed:: RIGHT hip hemiarthroplasty Surgeon:: Deann Amezquita MD Supervisor Rolling Room(s):: [facility] DIRECTOR:: Corby Tompkins Anesthesia: MAC, spinal Estimated blood loss (mL): 100 Clinical Note:: Mrs. Neff is a very pleasant 84-year-old female admitted overnight after a fall at home earlier in the evening. She was found on the kitchen floor by her , who did not witness the fall and is unsure how/why she fell. The patient is amnestic to the event but LOC not suspected; she has baseline dementia. She was transported via EMS to [facility], where a right hip fracture was diagnosed. A alvarez catheter was placed for comfort, pain medication was administered, and she was kept NPO after midnight in anticipation of surgery today. She denies baseline chest pain or shortness of breath with exertion; no complaints of these symptoms currently. She sustained a rib fracture and scalp laceration in the fall as well. She had a fall around 3 weeks ago in which she injured her left wrist; she has been doing therapy for this. She has been seen and cleared for surgery today by Dr. Stoddard and the cardiology service. 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 She lives with her h usband in a historic multi-level home and ambulates independently without assistive device; she uses a cane only if absolutely necessary. I discussed treatment options with the patient and her , and recommended hemiarthroplasty. After discussion of the risks and benefits to the procedure, they were in agreement and vocalized understanding; informed consent was obtained. Operative findings:: implants: Onida Accolade II 132 degree neck angle hip stem, size 2 UHR universal head bipolar component/LFIT V40 femoral head = bipolar head --> 44mm outer diameter (28mm inner diameter), +0 offset Operative note:: The patient was identified in preoperative holding and the R hip signed by myself. She was then taken to the operating room where 1g Ancef was infused intravenously and spinal anesthesia administered with MAC. Once the patient was sedated, she was placed in the left lateral decubitus position with a lane bag positioner, and the right hip prepped and draped in the usual sterile fashion. Timeout was performed, identifying the correct patient, correct procedure and correct site. The procedure was begun by making a longitudinal, curvilinear incision over the posterolateral aspect the the right hip, centered over the greater trochanter. Subcutaneous tissue was dissected with cautery until fascia was encountered. The fascia was incised in line with the shaft of the femur distally and curved proximally; fibers of the gluteus don were bluntly spread with finger dissection. Charnley retractor was placed under the fascia. The hip joint was visualized and there was moderate fracture hematoma present. This was evacuated and the short external rotators identified. The piriformis was tagged and reflec jennifer off the femur. Underlying joint capsule was seen to have a rent from the fracture; capsulotomy was completed and leaflets tagged. Corkscrew was inserted into the femoral head through the fracture site, and the femoral head was removed intact; it measured around 44mm in diameter. A size 43mm femoral head trial was placed into the acetabulum and found to be too small. 44 trial was used and appeared to give a good fit, 45 was found to be too large; 44 was the desired bipolar head size. Oscillating saw was then used to clean up the femoral neck fracture site; the neck was resected at the level of one fingerbreadth above the lesser trochanter. Cookie cutter osteotome was used to remove bone proximally in the femoral neck/greater trochanter and create a lateralized starting point for my broach. Canal finder was passed to find/open the femoral canal. Size 0 broach was then passed, taking care to retain the patient's natural femoral anteversion. Broaches of increasing size were sequentially passed, until a size 2 appeared to give the best fit in the proximal femur. This was the desired femoral stem size. Next, a trial neck of standard length was placed on the stem/broach and size 44 trial head placed on the neck. The hip was then reduced and taken through a range of motion; it was found to be stable in full extension and did not dislocate until around 80 degrees internal rotation with the hip flexed to 90 degrees. The hip felt very stable, so we decided upon this configuration of components for the final implants. All trial implants were removed, the wound irrigated with pulsivac saline, and the final components were placed: size 2 femoral stem with standard neck, 44mm bipolar head. The head was impacted into place and the hip reduced. Piriformis and capsule were repaired and the wound closed in a layered fashion using gal on the skin. Sterile dressing was applied to the hip and an abduction pillow placed between the patient's legs. She was then awoken and transferred to her bed; she was taken to PACU in good condition. There were no complications during this case. Tourniquet time (min): 0 Condition: stable Disposition: PACU Specimens:: right femoral head; NOT sent for pathology Complications:: none
[2019-07-06 07:10] LABS: Basophils % 0.2 % (0.1-2.0); Eosinophils % 0.4 % (0.1-12.0); Hemoglobin 13.4 g/dL (12.2-16.2); Lymphocytes # 0.9 K/mm3 (0.7-4.5); Lymphocytes % 11.6 % (10-50); Mean Corpuscular HGB Conc 31.3 g/dL (31.8-35.4); Mean Corpuscular Volume 99.9 fl (81-99); Mean Platelet Volume 8.4 fl (7.4-10.4); Monocytes # 0.4 K/mm3 (0.1-1.0); Monocytes % 4.8 % (1.7-9.3); Neutrophils # 6.2 K/mm3 (1.8-7.8); Neutrophils % 82.9 % (37.0-80.0); Platelet Count 194 K/mm3 (142-424); Red Blood Count 4.31 M/mm3 (4.20-5.40); Red Cell Distribution Width 13.8 % (11.5-17.5); White Blood Count 7.4 K/mm3 (4.8-10.8)
[2019-07-06 07:25] LABS: Anion Gap 10.9 mEq/L (5-15)
[2019-07-06 07:37] LABS: Calcium 7.9 mg/dL (8.5-10.1)
--- NOTE | 2019-07-06 08:13 | Progress Note ---
Internal Medicine - PN: Subj *Date: 07/06/19 *Time: 08:10 Interval history: Patient is complaining today of some pain in her back as well as her right hip. She states she is going to have surgery today and was reminded that she had the surgery yesterday. She states she feels sore all over. She did rest off and on throughout the night and ate a small amount of breakfast. Exam Vital signs and Labs for Last 24 Hours: Temp Pulse Resp BP Pulse Ox 97.9 F 95 H 18 148/89 H 96 07/06/19 04:00 07/06/19 04:00 07/06/19 04:00 07/06/19 04:00 07/06/19 04:00 Laboratory Results - last 24 hr 07/06/19 06:00: Sodium 138, Potassium 3.9, Chloride 106, Carbon Dioxide 25, Anion Gap 10.9, BUN 7 D, Creatinine 0.51 L D, Estimated Creat Clear 42, Estimated GFR 115, Est GFR ( Amer) 139 D, Glucose 117 H, Calcium 7.9 L D I & O for Last 24 hours: Intake & Output 07/03/19 07/04/19 07/05/19 07/06/19 11:59 11:59 11:59 11:59 Intake Total 1112 / 1112 3956 / 3956 Output Total 1800 / 2100 1050 / 1050 Balance -688 / -988 2906 / 2906 Weight 125 lb 139 lb 3.2 oz - Constitutional no acute distress (mildly confused) - *Routine Respiratory Exam Present: CTA bilaterally - *Routine Cardiovascular Exam Present: RRR - *Routine Abdominal Exam Present: soft, normoactive bowel sounds. Absent: tenderness - *Routine Extremities Exam Absent: cyanosis, clubbing, edema Comments: dressing in place on right hip - *Routine Skin Exam Present: warm. Absent: rash - *Routine Neurological Exam Present: alert, altered mental status (confused off and on) Assessment and Plan (1) Hip fracture Current visit: Yes Status: Acute Qualifiers: Encounter type: initial encounter Fracture type: closed Laterality: right Qualified Code(s): S72.001A - Fracture of unspecified part of neck of right femur, initial encounter for closed fracture Category: Medical Code(s): S72.009A - Fracture of unspecified part of neck of unspecified femur, initial encounter for closed fracture (2) Osteoporosis Current visit: Yes Status: Chronic Category: Medical Code(s): M81.0 - Age- related osteoporosis without current pathological fracture (3) Fall Current visit: Yes Status: Acute Qualifiers: Encounter type: initial encounter Qualified Code(s): W19.XXXA - Unspecified fall, initial encounter Category: Medical Code(s): W19.XXXA - Unspecified fall, initial encounter (4) Laceration Current visit: Yes Status: Acute Category: Medical (5) Nasal fracture Current visit: Yes Status: Acute Qualifiers: Encounter type: initial encounter Fracture type: closed Qualified Code(s): S02.2XXA - Fracture of nasal bones, initial encounter for closed fracture Category: Medical Code(s): S02.2XXA - Fracture of nasal bones, initial encounter for closed fracture (6) Rib fractures Current visit: Yes Status: Acute Qualifiers: Encounter type: initial encounter Rib fracture type: multiple ribs Fracture type: closed Laterality: right Qualified Code(s): S22.41XA - Multiple fractures of ribs, right side, initial encounter for closed fracture Category: Medical Code(s): S22.39XA - Fracture of one rib, unspecified side, initial encounter for closed fracture (7) Dementia Current visit: Yes Status: Chronic Qualifiers: Dementia type: Alzheimer's disease Alzheimer's disease onset: unspecified onset Dementia behavioral disturbance: without behavioral disturbance Qualified Code(s): G30.9 - Alzheimer's disease, unspecified; F02.80 - Dementia in other diseases classified elsewhere without behavioral disturbance Category: Medical Code(s): F03.90 - Unspecified dementia without behavioral disturbance - Assessment and plan all Dx Assessment and Plan for all problems:: Ortho to follow. Will discuss further care with Dr. Stoddard.
--- NOTE | 2019-07-06 09:54 | Progress Note ---
Subjective Date: 07/06/19 Time: 09:40 Principal diagnosis: hip pain Interval history: This is an 84-year-old white female who was admitted to the hospital after a fall. The patient did have a fracture of her right hip. Yesterday she did not undergo repair of her right hip fracture. This morning she is complaining of some right hip pain. She denies any chest pain or pressure. She denies any shortness of breath. She denies any fever, chills, nausea, vomiting, diarrhea, PND or orthopnea. She states that she just does not feel well because of the right hip pain and being postop from surgery. She has no cardiac complaints. Exam Vital signs and Labs for Last 24 Hours: Temp Pulse Resp BP Pulse Ox 98.5 F 88 17 141/78 H 90 L 07/06/19 08:00 07/06/19 08:00 07/06/19 08:00 07/06/19 08:00 07/06/19 08:00 Laboratory Results - last 24 hr 07/06/19 06:00: WBC 7.4, RBC 4.31, Hgb 13.4, Hct 43.0, MCV 99.9 H, MCH 31.2, MCHC 31.3 L, RDW 13.8, Plt Count 194, MPV 8.4, Neut % (Auto) 82.9 H, Lymph % (Auto) 11.6, [place] % (Auto) 4.8, Eos % (Auto) 0.4, Baso % (Auto) 0.2, Neut # (Auto) 6.2, Lymph # (Auto) 0.9, [place] # (Auto) 0.4, Eos # (Auto) 0.0, Baso # (Auto) 0.0 07/06/19 06:00: Sodium 138, Potassium 3.9, Chloride 106, Carbon Dioxide 25, Anion Gap 10.9, BUN 7 D, Creatinine 0.51 L D, Estimated Creat Clear 42, Estimated GFR 115, Est GFR ( Amer) 139 D, Glucose 117 H, Calcium 7.9 L D I & O for Last 24 hours: Intake & Output 07/03/19 07/04/19 07/05/19 07/06/19 23:59 23:59 23:59 23:59 Intake Total 2912 / 2912 2396 / 2396 Output Total 2400 / 2400 450 / 450 Balance 512 / 512 1945 / 194 Weight 125 lb 139 lb 3.2 oz - Constitutional no acute distress, average body habitus - *Routine HEENT Exam Head: Present: normocephalic, atraumatic Eye: Present: EOMI, PERRL ENT: Present: mucous membranes moist - *Routine Neck Exam Present: supple, full ROM, normal carotid upstroke. Absent: JVD, carotid bruit, lymphadenopathy - *Routine Respiratory Exam Present: CTA bilaterally - *Routine Cardiovascular Exam Present: RRR, Normal S1, Normal S2. Absent: murmur - *Routine Abdominal Exam Present: soft, normoactive bowel sounds. Absent: tenderness, distended - *Routine Extremities Exam Present: full ROM, pulses intact, normal capillary refill. Absent: cyanosis, clubbing, edema - *Routine Skin Exam Present: intact (Except for right hip surgery site), warm. Absent: erythema, rash - *Routine Neurological Exam Present: alert, oriented X3, CN II-XII intact. Absent: sensory deficit, motor deficit - Detailed Eye Exam Eyelids: Left normal inspection Progress Note: A&P (1) Hip fracture Status: Acute Current Visit: Yes (2) Osteoporosis Status: Chronic Current Visit: Yes (3) Fall Status: Acute Current Visit: Yes (4) Laceration Status: Acute Current Visit: Yes (5) Nasal fracture Status: Acute Current Visit: Yes (6) Rib fractures Status: Acute Current Visit: Yes (7) Dementia Status: Chronic Current Visit: Yes (8) HTN (hypertension) Status: Chronic Current Visit: No Assessment and Plan for All Diagnoses:: Plan: 1. The patient was admitted to the hospital after sustaining a right hip fracture. She did undergo repair yesterday. She is complaining of some pain in her right hip. She is getting pain medications which her family states is helping to improve the pain. Will defer management of her right hip fracture and repair to orthopedics and her primary care provider. 2. The patient's echocardiogram is currently pending. The preliminary report showed no change from her echocardiogram in 2018. 3. Her blood pressure is acceptable at this time. 4. Her LDL goal is less than 100. 5. The patient did have outpatient testing set up from a cardiac standpoint but given her hip fracture and surgery this will be postponed until after she has healed from her hip surgery. 6. Recommend aspirin 81 mg daily given her age once this is okay from an orthopedic standpoint. 7. No further recommend agents at this time from a cardiac standpoint. The patient is to follow-up in 1 to 2 weeks in our outpatient clinic. Thank you for the opportunity to help participate in the care of this patient.
--- NOTE | 2019-07-06 11:12 | Progress Note ---
Subjective Date: 07/06/19 Time: 10:00 Principal diagnosis: s/p R hip hemiarthroplasty for femoral neck fracture Interval history: The patient is doing well this morning. She has been out of bed with both nursing and physical therapy. Her pain is well-controlled with medication. No fevers/chills reported, vitals stable overnight, no chest pain or shortness of breath reported. PN: Obj Ex Vital signs: Temp Pulse Resp BP Pulse Ox 98.5 F 88 17 141/78 H 90 L 07/06/19 08:00 07/06/19 08:00 07/06/19 08:00 07/06/19 08:00 07/06/19 08:00 - Constitutional no acute distress, thin - Routine HEENT Exam Head: Present: laceration (scalp laceration repaired in ER with gal, clean and dry), hematoma Eye: Present: EOMI ENT: Present: mucous membranes moist - Routine Respiratory Exam Present: CTA bilaterally. Absent: accessory muscle use, rhonchi, wheezes - Routine Cardiovascular Exam Present: RRR - Routine Abdominal Exam Present: soft. Absent: tenderness - Routine Extremities Exam Comments: R hip dressing c/d/i, small amount of strikethrough +DF/PF/EHL RLE SILT distally RLE palpable pedal pulses RLE, foot warm R calf soft, non-tender abduction pillow in place, patient supine in bed alvarez cath has been removed - Routine Neurological Exam Present: alert, oriented X3, moving all extremities, normal tone, hearing grossly intact, normal speech. Absent: sensory deficit, motor deficit, altered mental status - Urinary Catheter Management Alvarez Cath placed during this visit: yes Urethral indwelling: No Insertion date: 07/05/19 Insertion time: 02:09 Progress Note: A&P (1) Hip fracture Status: Acute Current Visit: Yes (2) Osteoporosis Status: Chronic Current Visit: Yes (3) Fall Status: Acute Current Visit: Yes (4) Laceration Status: Acute Current Visit: Yes (5) Nasal fracture Status: Acute Current Visit: Yes (6) Rib fractures Status: Acute Current Visit: Yes (7) Dementia Status: Chronic Current Visit: Yes (8) HTN (hypertension) Status: Chronic Current Visit: No Assessment and Plan for All Diagnoses:: 84yo F POD 1 s/p R hip hemiarthroplasty for femoral neck fracture -- continue PT/OT; WBAT RLE, posterior hip precautions, abduction pillow in bed -- DVT prophy: SCDs, chemical prophy per primary MD -- pain control: currently on oral [place] + IV dilaudid PRN for breakthrough -- finish 24 hour IV antibiotics for khalif-op prophy -- ice pack R hip PRN -- may be up as tolerated with assistance -- dispo planning: home health vs SNF based upon PT/nurse discharge planner dom
[2019-07-07 06:37] LABS: Basophils % 0.2 % (0.1-2.0); Eosinophils # 0.1 K/mm3 (0.0-0.4); Eosinophils % 0.9 % (0.1-12.0); Hematocrit 38.6 % (37.0-47.0); Hemoglobin 12.1 g/dL (12.2-16.2); Lymphocytes % 12.3 % (10-50); Mean Corpuscular HGB Conc 31.4 g/dL (31.8-35.4); Mean Corpuscular Volume 100.2 fl (81-99); Mean Platelet Volume 8.4 fl (7.4-10.4); Monocytes # 0.5 K/mm3 (0.1-1.0); Monocytes % 6.3 % (1.7-9.3); Neutrophils # 6.5 K/mm3 (1.8-7.8); Neutrophils % 80.2 % (37.0-80.0); Platelet Count 177 K/mm3 (142-424); Red Blood Count 3.85 M/mm3 (4.20-5.40); Red Cell Distribution Width 14.1 % (11.5-17.5); White Blood Count 8.1 K/mm3 (4.8-10.8)
[2019-07-07 06:39] LABS: Anion Gap 9.5 mEq/L (5-15); Calcium 8.3 mg/dL (8.5-10.1)
--- NOTE | 2019-07-07 08:21 | Progress Note ---
Internal Medicine - PN: Subj *Date: 07/07/19 *Time: 08:18 Interval history: Patient states she is feeling well today. She denies any pain. She ate all of her breakfast and slept well last night. Exam Vital signs and Labs for Last 24 Hours: Temp Pulse Resp BP Pulse Ox 97.7 F 88 18 158/83 H 89 L 07/07/19 03:40 07/07/19 03:40 07/07/19 03:40 07/07/19 03:40 07/07/19 03:40 Laboratory Results - last 24 hr 07/06/19 06:00: WBC 7.4, RBC 4.31, Hgb 13.4, Hct 43.0, MCV 99.9 H, MCH 31.2, MCHC 31.3 L, RDW 13.8, Plt Count 194, MPV 8.4, Neut % (Auto) 82.9 H, Lymph % (Auto) 11.6, [place] % (Auto) 4.8, Eos % (Auto) 0.4, Baso % (Auto) 0.2, Neut # (Auto) 6.2, Lymph # (Auto) 0.9, [place] # (Auto) 0.4, Eos # (Auto) 0.0, Baso # (Auto) 0.0 07/07/19 05:55: WBC 8.1, RBC 3.85 L, Hgb 12.1 L, Hct 38.6, MCV 100.2 H, MCH 31.4 H, MCHC 31.4 L, RDW 14.1, Plt Count 177, MPV 8.4, Neut % (Auto) 80.2 H, Lymph % (Auto) 12.3, [place] % (Auto) 6.3, Eos % (Auto) 0.9, Baso % (Auto) 0.2, Neut # (Auto) 6.5, Lymph # (Auto) 1.0, [place] # (Auto) 0.5, Eos # (Auto) 0.1, Baso # (Auto) 0.0 07/07/19 05:55: Sodium 136, Potassium 3.5, Chloride 104, Carbon Dioxide 26, Anion Gap 9.5, BUN 7, Creatinine 0.57, Estimated Creat Clear 41, Estimated GFR 101, Est GFR ( Amer) 123, Glucose 112 H, Calcium 8.3 L I & O for Last 24 hours: Intake & Output 07/04/19 07/05/19 07/06/19 07/07/19 11:59 11:59 11:59 11:59 Intake Total 1112 / 1112 4196 / 4196 2268 / 2268 Output Total 1800 / 2100 1050 / 1050 300 / 300 Balance -688 / -988 3146 / 3146 1967 Weight 125 lb 139 lb 3.2 oz 135 lb 6 oz Microbiology Reports for the Last 24 Hours: Microbiology 07/05/19 00:30 Blood Blood Culture - Preliminary NO GROWTH AFTER 48 HOURS 07/05/19 00:30 Blood Blood Culture - Preliminary NO GROWTH AFTER 48 HOURS - Constitutional no acute distress - *Routine Respiratory Exam Present: CTA bilaterally - *Routine Cardiovascular Exam Present: RRR - *Routine Abdominal Exam Present: soft, normoactive bowel sounds. Absent: tenderness - *Routine Extremities Exam Absent: cyanosis, clubbing, edema Comments: Hip immobilizer in place - *Routine Skin Exam Present: warm. Absent: rash Comments: right hip with dressing in place - *Routine Neurological Exam Present: alert Assessment and Plan (1) Hip fracture Current visit: Yes Status: Acute Qualifiers: Encounter type: initial encounter Fracture type: closed Laterality: right Qualified Code(s): S72.001A - Fracture of unspecified part of neck of right femur, initial encounter for closed fracture Category: Medical Code(s): S72.009A - Fracture of unspecified part of neck of unspecified femur, initial encounter for closed fracture (2) Osteoporosis Current visit: Yes Status: Chronic Category: Medical Code(s): M81.0 - Age- related osteoporosis without current pathological fracture (3) Fall Current visit: Yes Status: Acute Qualifiers: Encounter type: initial encounter Qualified Code(s): W19.XXXA - Unspecified fall, initial encounter Category: Medical Code(s): W19.XXXA - Unspecified fall, initial encounter (4) Laceration Current visit: Yes Status: Acute Category: Medical (5) Nasal fracture Current visit: Yes Status: Acute Qualifiers: Encounter type: initial encounter Fracture type: closed Qualified Code(s): S02.2XXA - Fracture of nasal bones, initial encounter for closed fracture Category: Medical Code(s): S02.2XXA - Fracture of nasal bones, initial encounter for closed fracture (6) Rib fractures Current visit: Yes Status: Acute Qualifiers: Encounter type: initial encounter Rib fracture type: multiple ribs Fracture type: closed Laterality: right Qualified Code(s): S22.41XA - Multiple fractures of ribs, right side, initial encounter for closed fracture Category: Medical Code(s): S22.39XA - Fracture of one rib, unspecified side, initial encounter for closed fracture (7) Dementia Current visit: Yes Status: Chronic Qualifiers: Dementia type: Alzheimer's disease Alzheimer's disease onset: unspecified onset Dementia behavioral disturbance: without behavioral disturbance Qualified Code(s): G30.9 - Alzheimer's disease, unspecified; F02.80 - Dementia in other diseases classified elsewhere without behavioral disturbance Category: Medical Code(s): F03.90 - Unspecified dementia without behavioral disturbance (8) HTN (hypertension) Current visit: No Status: Chronic Qualifiers: Hypertension type: essential hypertension Qualified Code(s): I10 - Essential (primary) hypertension Category: Medical Code(s): I10 - Essential (primary) hypertension - Assessment and plan all Dx Assessment and Plan for all problems:: We will continue PT/OT. Dr. Amezquita to follow. Patient is doing well. Will discuss further care with Dr. Stoddard. .
--- NOTE | 2019-07-07 09:18 | Progress Note ---
Subjective Date: 07/07/19 Time: 09:15 Principal diagnosis: s/p R hip hemiarthroplasty for femoral neck fracture Interval history: 84-year-old white female in bedside chair in no acute distress. Patient does relate some diarrhea overnight. She continues to have some soreness from her right hip surgery. is present and relates that the patient is going to [facility] for rehab. Exam Vital signs and Labs for Last 24 Hours: Temp Pulse Resp BP Pulse Ox 98.3 F 100 H 21 136/78 95 07/07/19 08:00 07/07/19 08:00 07/07/19 08:00 07/07/19 08:00 07/07/19 08:00 Laboratory Results - last 24 hr 07/07/19 05:55: WBC 8.1, RBC 3.85 L, Hgb 12.1 L, Hct 38.6, MCV 100.2 H, MCH 31.4 H, MCHC 31.4 L, RDW 14.1, Plt Count 177, MPV 8.4, Neut % (Auto) 80.2 H, Lymph % (Auto) 12.3, [place] % (Auto) 6.3, Eos % (Auto) 0.9, Baso % (Auto) 0.2, Neut # (Auto) 6.5, Lymph # (Auto) 1.0, [place] # (Auto) 0.5, Eos # (Auto) 0.1, Baso # (Auto) 0.0 07/07/19 05:55: Sodium 136, Potassium 3.5, Chloride 104, Carbon Dioxide 26, Anion Gap 9.5, BUN 7, Creatinine 0.57, Estimated Creat Clear 41, Estimated GFR 101, Est GFR ( Amer) 123, Glucose 112 H, Calcium 8.3 L I & O for Last 24 hours: Intake & Output 07/04/19 07/05/19 07/06/19 07/07/19 11:59 11:59 11:59 11:59 Intake Total 1112 / 1112 4196 / 4196 2508 / 2508 Output Total 1800 / 2100 1050 / 1050 300 / 300 Balance -688 / -988 3146 / 3146 2208 / 2208 Weight 125 lb 139 lb 3.2 oz 135 lb 6 oz Microbiology Reports for the Last 24 Hours: Microbiology 07/05/19 00:30 Blood Blood Culture - Preliminary NO GROWTH AFTER 48 HOURS 07/05/19 00:30 Blood Blood Culture - Preliminary NO GROWTH AFTER 48 HOURS - *Routine HEENT Exam Head: Present: normocephalic Eye: Present: EOMI, PERRL ENT: Present: mucous membranes moist - *Routine Respiratory Exam Present: CTA bilaterally. Absent: accessory muscle use, rales, rhonchi, wheezes - *Routine Cardiovascular Exam Present: RRR. Absent: murmur, gallop, rubs - *Routine Abdominal Exam Present: soft. Absent: tenderness, distended, guarding - *Routine Extremities Exam Absent: edema, calf tenderness - *Routine Neurological Exam Present: alert, oriented X3, moving all extremities Progress Note: A&P (1) Hip fracture Status: Acute Current Visit: Yes (2) Osteoporosis Status: Chronic Current Visit: Yes (3) Fall Status: Acute Current Visit: Yes (4) Laceration Status: Acute Current Visit: Yes (5) Nasal fracture Status: Acute Current Visit: Yes (6) Rib fractures Status: Acute Current Visit: Yes (7) Dementia Status: Chronic Current Visit: Yes (8) HTN (hypertension) Status: Chronic Current Visit: No Assessment and Plan for All Diagnoses:: Clinically stable from a cardiac standpoint for discharge when PCP is ready. Patient is going to rehab to recover from her hip fracture and surgery. Follow-up in our office in 2 to 3 weeks with consideration for further cardiac evaluation (Lexiscan Myoview) as previously scheduled.
--- NOTE | 2019-07-07 11:58 | Progress Note ---
Subjective Date: 07/07/19 Time: 11:00 Principal diagnosis: s/p R hip hemiarthroplasty for femoral neck fracture Interval history: The patient is doing well this morning. When I arrived she was being assisted from portable commode to bedside chair. She had some pain with standing, but one upright, felt much better. Pain is controlled with oral medications. She is taking good PO and maintaining adequate UOP. A bed has been secured at [facility] for tomorrow. PN: Obj Ex Vital signs: Temp Pulse Resp BP Pulse Ox 98.3 F 100 H 21 136/78 95 07/07/19 08:00 07/07/19 08:00 07/07/19 08:00 07/07/19 08:00 07/07/19 08:00 - Constitutional no acute distress, thin - Routine HEENT Exam Head: Present: laceration, scalp tenderness Eye: Present: EOMI ENT: Present: mucous membranes moist - Routine Respiratory Exam Absent: respiratory distress - Routine Extremities Exam Comments: R hip dressing c/d/i, small amount of strikethrough dressing was changed, small blister superior + small blister inferior to dressing wound c/d/i with mild periwound ecchymosis, no erythema or active drainage +DF/PF/EHL RLE SILT distally RLE palpable pedal pulses RLE, foot warm R calf soft, non-tender - Urinary Catheter Management Gill Cath placed during this visit: yes Urethral indwelling: No Insertion date: 07/05/19 Insertion time: 02:09 Progress Note: A&P (1) Hip fracture Status: Acute Current Visit: Yes (2) Osteoporosis Status: Chronic Current Visit: Yes (3) Fall Status: Acute Current Visit: Yes (4) Laceration Status: Acute Current Visit: Yes (5) Nasal fracture Status: Acute Current Visit: Yes (6) Rib fractures Status: Acute Current Visit: Yes (7) Dementia Status: Chronic Current Visit: Yes (8) HTN (hypertension) Status: Chronic Current Visit: No Assessment and Plan for All Diagnoses:: 84yo F POD 2 s/p R hip hemiarthroplasty for femoral neck fracture -- continue PT/OT, WBAT RLE with posterior hip precautions + abduction pillow while in bed -- dressing changed today, change daily/PRN -- ok to shower if desired, but patient should be seated and have assistance -- taking good PO, having difficulty with IV coming out; ok to d/c IV -- DVT prophy: ASA + SCDs -- ice pack R hip PRN -- ok to d/c to SNF from ortho standpoint -- f/u with me in clinic at 2 weeks post-op
--- NOTE | 2019-07-07 16:00 | Cardiology Report ---
[facility] RADIOLOGICAL CONSULTATION Patient Name : MAURO SHAH X-RAY # : [id number] Physician: JOSUE URBINA AGE: 84Y : 1935 00:00:00 ( F ) Exam : CA ECHO DOPPLER COMPLETE ACC # : [id number] Study Date : 07/05/2019 06:46:59 Patient Class : I FINAL REPORT CLINICAL DATA: FINDINGS: IMPRESSION: Dictated by Hansa Monte at 07/06/2019 12:41:45 PM Transcribed by at
--- NOTE | 2019-07-08 08:11 | Progress Note ---
Internal Medicine - PN: Subj *Date: 07/08/19 *Time: 08:07 Interval history: Patient states she is not feeling as well today. She is having more pain in her right hip and her head is been hurting. She does feel nauseated this morning and is requesting some nausea. She states she has not felt like eating breakfast. Exam Vital signs and Labs for Last 24 Hours: Temp Pulse Resp BP Pulse Ox 98.7 F 84 18 156/81 H 98 07/08/19 04:00 07/08/19 04:00 07/08/19 04:00 07/08/19 04:00 07/08/19 04:00 I & O for Last 24 hours: Intake & Output 07/05/19 07/06/19 07/07/19 07/08/19 11:59 11:59 11:59 11:59 Intake Total 1112 / 1112 4196 / 4196 2508 / 2508 240 / 240 Output Total 1800 / 2100 1050 / 1050 300 / 300 500 / 500 Balance -688 / -988 3146 / 3146 2208 / 2208 -260 / -260 Weight 125 lb 139 lb 3.2 oz 135 lb 6 oz 139 lb 4 oz - Constitutional no acute distress - *Routine Respiratory Exam Present: CTA bilaterally - *Routine Cardiovascular Exam Present: RRR - *Routine Abdominal Exam Present: soft, normoactive bowel sounds. Absent: tenderness - *Routine Extremities Exam Absent: cyanosis, clubbing, edema - *Routine Skin Exam Present: warm. Absent: rash Comments: dressing has been changed on the right hip Assessment and Plan (1) Hip fracture Current visit: Yes Status: Acute Qualifiers: Encounter type: initial encounter Fracture type: closed Laterality: right Qualified Code(s): S72.001A - Fracture of unspecified part of neck of right femur, initial encounter for closed fracture Category: Medical Code(s): S72.009A - Fracture of unspecified part of neck of unspecified femur, initial encounter for closed fracture (2) Osteoporosis Current visit: Yes Status: Chronic Category: Medical Code(s): M81.0 - Age- related osteoporosis without current pathological fracture (3) Fall Current visit: Yes Status: Acute Qualifiers: Encounter type: initial encounter Qualified Code(s): W19.XXXA - Unspecified fall, initial encounter Category: Medical Code(s): W19.XXXA - Unspecified fall, initial encounter (4) Laceration Current visit: Yes Status: Acute Category: Medical (5) Nasal fracture Current visit: Yes Status: Acute Qualifiers: Encounter type: initial encounter Fracture type: closed Qualified Code(s): S02.2XXA - Fracture of nasal bones, initial encounter for closed fracture Category: Medical Code(s): S02.2XXA - Fracture of nasal bones, initial encounter for closed fracture (6) Rib fractures Current visit: Yes Status: Acute Qualifiers: Encounter type: initial encounter Rib fracture type: multiple ribs Fracture type: closed Laterality: right Qualified Code(s): S22.41XA - Multiple fractures of ribs, right side, initial encounter for closed fracture Category: Medical Code(s): S22.39XA - Fracture of one rib, unspecified side, initial encounter for closed fracture (7) Dementia Current visit: Yes Status: Chronic Qualifiers: Dementia type: Alzheimer's disease Alzheimer's disease onset: unspecified onset Dementia behavioral disturbance: without behavioral disturbance Qualified Code(s): G30.9 - Alzheimer's disease, unspecified; F02.80 - Dementia in other diseases classified elsewhere without behavioral disturbance Category: Medical Code(s): F03.90 - Unspecified dementia without behavioral disturbance (8) HTN (hypertension) Current visit: No Status: Chronic Qualifiers: Hypertension type: essential hypertension Qualified Code(s): I10 - Essential (primary) hypertension Category: Medical Code(s): I10 - Essential (primary) hypertension - Assessment and plan all Dx Assessment and Plan for all problems:: Patient does have Zofran ordered, will give a dose this morning. Will discuss f urther care with Dr. Stoddard.
--- NOTE | 2019-07-08 10:23 | Discharge Summary ---
General - General Admission date:: 07/05/19 Discharge date: 07/08/19 HPI HPI: Ms. Neff is an 84-year-old female with a history of hypertension, osteoporosis, Alzheimer's, and recent fall about 3 weeks ago resulting in left wrist injury who was brought to [facility] emergency room via ambulance after a fall at home. Patient states she does not remember the fall and does not know why she fell. Her states he found her in the kitchen on the floor about 2 minutes after the fall. With evaluation in the emergency room multiple CTs and x-rays were completed. She was noted to have a fracture of her right hip and a rib fracture. She was also noted to have a hematoma in the right forehead. She did require stapling of her wound in the right parietal area. She was then admitted with an orthopedic consultation. This a.m. at time of exam has been is in the room and assist with the history. Patient states she hurts in her right hip. She denies chest pain and shortness of breath. She has a Gill catheter. She is n.p.o. for possible surgery today. Hospital Course Hospital Course: Patient's other imaging was negative for fracture. She was seen in consultation by cardiology for surgery clearance. She had an echo done and the preliminary showed no change from the 2017 study. Cardiology recommended proceeding with surgery as she had no acute changes in her EKG and her troponin was normal. She was seen in consultation by Dr. Amezquita and was started on 1 g of Ancef and taken to the OR for a right hip hemiarthroplasty. The patient tolerated the procedure well. She did have some pain in her right hip after surgery and also had pain in her back due to the rib fracture. She was able to get out of bed with nursing and physical therapy and her pain was well controlled with pain medication. Dr. Amezquita felt that she would need continued PT and OT and could be weightbearing as tolerated on the right lower extremity. She should have posterior hip precautions and an abduction pillow when in bed. She had postop antibiotics and it was felt she would need intermediate placement for continued rehab. She was started on aspirin 81 mg daily. She was eating and drinking normally. Dr. Ayala did see the patient and changed the dressing. She felt the dressing should be changed daily and as needed. A bed was found for her at [facility] and she was stable to be discharged for continued rehab. Objective Vital signs: Temp Pulse Resp BP Pulse Ox 98.3 F 81 20 163/92 H 94 L 07/08/19 08:00 07/08/19 08:00 07/08/19 08:00 07/08/19 08:00 07/08/19 08:00 Narrative: - Constitutional no acute distress, thin Comments: Lying on her back in bed. She appears comfortable. - *Routine HEENT Exam Head: Present: normocephalic, hematoma (Right forehead) ENT: Present: mucous membranes moist, oropharynx clear Comments: Staple closure of wound in right parietal area. - *Routine Neck Exam Present: supple. Absent: carotid bruit, lymphadenopathy, thyromegaly - *Routine Respiratory Exam Present: CTA bilaterally - *Routine Cardiovascular Exam Present: RRR - *Routine Abdominal Exam Present: soft, normoactive bowel sounds. Absent: tenderness, distended - *Routine Extremities Exam Absent: edema, calf tenderness Comments: Full range of motion of the left arm and left wrist. - *Routine Neurological Exam Present: alert. Absent: facial asymmetry Right pupil slightly larger than the left and is reactive Results Labs on day of discharge: Preliminary micro results at discharge 07/05/19 00:30 Blood Culture - Preliminary Blood NO GROWTH AFTER 48 HOURS 07/05/19 00:30 Blood Culture - Preliminary Blood NO GROWTH AFTER 48 HOURS DS: Diagnosis - Discharge Diagnosis (1) Hip fracture Status: Acute (2) Osteoporosis Status: Chronic (3) Fall Status: Acute (4) Laceration Status: Acute (5) Nasal fracture Status: Acute (6) Rib fractures Status: Acute (7) Dementia Status: Chronic (8) HTN (hypertension) Status: Chronic Discharge Plan - Patient Discharge Instructions ACTIVITY: Limited activity, Up with assistance DIET: continue same diet Additional Instructions: -- WBAT RLE, posterior hip precautions, hip abduction pillow while in bed -- continue PT/OT at SNF -- change dressing daily/PRN -- follow-up with Dr. Amezquita at 2 weeks post-op Patient Instructions: Rib Fracture, Hip Fracture, DI for Rib Fracture, DI for Hip Fracture, How to Prevent Falls, DI for Surgical Site Infection - Follow up Plan Follow up with: Deann Amezquita MD [Physician] - 07/22/19 2:00 pm Unknown provider or service follow up:: 07/08/19 08:56 Dr. Stoddard will follow in the senior living. Disposition: Xfer [facility] Home Medications: Home Medications Medication Instructions Recorded Confirmed Type acetaminophen ER 650 mg 650 mg PO Q12H PRN 06/24/19 07/05/19 History tablet,extended release ergocalciferol (vitamin D2) 50,000 50,000 unit PO WEEKLY 06/24/19 07/05/19 History unit capsule fluoxetine 40 mg capsule 40 mg PO DAILY 06/24/19 07/05/19 History gabapentin 100 mg capsule 200 mg PO HS cap 06/24/19 07/05/19 History memantine 5 mg tablet 5 mg PO BID 06/24/19 07/05/19 History Donepezil HCl [Aricept 10mg 10 mg PO HS 07/05/19 07/05/19 History tablet] Potassium Chloride [Klor-con 20 20 meq PO DAILY 07/05/19 07/05/19 History mEq tablet] Ramipril 10 mg PO DAILY 07/05/19 07/05/19 History Aspirin [Aspirin 81mg chewable 81 mg PO DAILY tab.chew 07/08/19 Rx tab] Hydrocod/Acet 5/325 mg [[place] 1 tab PO Q4HP PRN #60 tab 07/08/19 Rx 5/325mg tablet] Prescriptions/Medication Reconciliation: New Hydrocod/Acet 5/325 mg [[place] 5/325mg tablet] 1 tab PO Q4HP PRN #60 tab PRN Reason: Moderate To Severe Pain Aspirin [Aspirin 81mg chewable tab] 81 mg PO DAILY tab.chew Continued gabapentin 100 mg capsule 200 mg PO HS cap memantine 5 mg tablet 5 mg PO BID fluoxetine 40 mg capsule 40 mg PO DAILY ergocalciferol (vitamin D2) 50,000 unit capsule 50,000 unit PO WEEKLY acetaminophen ER 650 mg tablet,extended release 650 mg PO Q12H PRN PRN Reason: Moderate Pain Potassium Chloride [Klor-con 20 mEq tablet] 20 meq PO DAILY Ramipril 10 mg PO DAILY Donepezil HCl [Aricept 10mg tablet] 10 mg PO HS - Problem Reconciliation Problems Reviewed?: Yes
--- NOTE | 2019-07-08 13:02 | Progress Note ---
Subjective Date: 07/08/19 Time: 11:00 Principal diagnosis: s/p R hip hemiarthroplasty for femoral neck fracture Interval history: Mrs. Neff is doing well this morning. She is continuing to work with physical therapy but progress has been slow due to pain and cognitive issues; she seems to have quite a bit of fear using the injured hip. At rest she reports no pain, and the oral pain medication seems to control the pain she has when it arises. Otherwise she is doing quite well and is ready for discharge to SNF today. PN: Obj Ex Vital signs: Temp Pulse Resp BP Pulse Ox 98.3 F 81 20 163/92 H 94 L 07/08/19 08:00 07/08/19 08:00 07/08/19 08:00 07/08/19 08:00 07/08/19 08:00 - Constitutional no acute distress, thin - Routine HEENT Exam Head: Present: laceration - Routine Extremities Exam Comments: R hip dressing c/d/i, no strikethrough small blister superior + small blister inferior to dressing wound c/d/i with mild periwound ecchymosis, no erythema or active drainage +DF/PF/EHL RLE SILT distally RLE palpable pedal pulses RLE, foot warm R calf soft, non-tender - Urinary Catheter Management Gill Cath placed during this visit: yes Urethral indwelling: No Insertion date: 07/05/19 Insertion time: 02:09 Progress Note: A&P (1) Hip fracture Status: Acute Current Visit: Yes (2) Osteoporosis Status: Chronic Current Visit: Yes (3) Fall Status: Acute Current Visit: Yes (4) Laceration Status: Acute Current Visit: Yes (5) Nasal fracture Status: Acute Current Visit: Yes (6) Rib fractures Status: Acute Current Visit: Yes (7) Dementia Status: Chronic Current Visit: Yes (8) HTN (hypertension) Status: Chronic Current Visit: No Assessment and Plan for All Diagnoses:: 84yo F POD 3 s/p R hip hemiarthroplasty for femoral neck fracture -- continue PT/OT, WBAT RLE with posterior hip precautions + abduction pillow while in bed -- dressing to be changed daily/PRN -- ok to shower if desired, but patient should be seated and have assistance -- DVT prophy: ASA + SCDs -- ice pack R hip PRN -- ok to d/c to SNF from ortho standpoint -- f/u with me in clinic at 2 weeks post-op
== END 2019-07-08 14:13 | DRG 470 ==
LOC: ER 00:08 → 2ND 02:56
PROVIDERS: ADMIT Family Medicine; ATTEND Family Medicine
CPT/HCPCS: 36415; 70450; 71010; 71045; 71275; 72125; 72131; 73502; 73700; 74177; 80048; 80053; 80305; 81001; 82550; 82803; 83605; 84484; 85025; 85610; 85651; 86140; 87040; 93005; 93306; 96365; 96375; 97110; 97116; 97163; 97166; 97530; 97535; 99285; C1713; C1776; J2405; Q9967

== ENCOUNTER → 2019-07-22 13:47 | Outpatient (CLI) | payer MEDICARE, SELFPAY ==
--- NOTE | 2019-07-22 13:53 | XR_ITS ---
PROCEDURE: XR HIP RT 2-3V W/PELVIS CLINICAL INDICATION: hip pain Recent surgery and more recent fall, patient somewhat confused COMPARISON: XR HIP RT 2-3V W/PELVIS from 07/05/2019 FINDINGS: The bipolar prosthesis is again noted in good position. The medullary stem as well placed within the proximal femur with no evidence of loosening. Metallic surgical gal are still seen in the skin line over the right hip. There is no acute fracture of the bony pelvis identified. The left hip shows no significant degenerate change. IMPRESSION: Stable hip, no acute fracture seen Dictated by: Dr. Mitch Domínguez MD 07/22/2019 14:[address] Mitch Domínguez MD in [place] 07/22/2019 14:44
== END ==
PROVIDERS: PCP Family Medicine; Visit Provider Orthopaedic Surgery
DX: M25.551 Pain in right hip (principal)
CPT/HCPCS: 73502

== ENCOUNTER → 2019-07-24 00:01 | Outpatient (CLI) | payer MEDICARE, SELFPAY ==
[2019-07-24 00:27] LABS: Adenovirus F 40/41, stool Not Detected (NotDetected); Astrovirus Not Detected (NotDetected); Campylobacter Not Detected (NotDetected); Clostridium Difficile A/B, PCR Not Detected (NotDetected); Cryptosporidium Not Detected (NotDetected); Cyclospora Cayetanesis Not Detected (NotDetected); Entamoeba histolytica Not Detected (NotDetected); Enteroaggregative E coli Not Detected (NotDetected); Enteropathogenic E coli Not Detected (NotDetected); Enterotoxigenic E coli Not Detected (NotDetected); Giardia lamblia Not Detected (NotDetected); Norovirus Not Detected (NotDetected); Plesimonas Shigalloides, PCR Not Detected (NotDetected); Rotavirus A Not Detected (NotDetected); Salmonella, PCR Not Detected (NotDetected); Sapovirus Not Detected (NotDetected); Shiga-like toxin E coli Not Detected (NotDetected); Shigella Enterovasive E coli Not Detected (NotDetected); Vibrio Cholerae Not Detected (NotDetected); Vibrio, PCR Not Detected (NotDetected); Yersinia Entercolitica, PCR Not Detected (NotDetected)
== END ==
PROVIDERS: Visit Provider Family Medicine
DX: R19.7 Diarrhea, unspecified (principal)
CPT/HCPCS: 87506

== ENCOUNTER → 2019-09-30 13:11 | Outpatient (CLI) | payer MEDICARE, SELFPAY ==
--- NOTE | 2019-09-30 13:21 | XR_ITS ---
PROCEDURE: XR HIP RT 2-3V W/PELVIS CLINICAL INDICATION: Rt hip hemiarthroplasty COMPARISON: XR HIP RT 2-3V W/PELVIS from 07/22/2019 FINDINGS: Status post right hemiarthroplasty with good alignment. No acute fracture or dislocation. Skin clips have been removed IMPRESSION: . good alignment status post right hemiarthroplasty Dictated by: Lang Hinton MD 09/30/2019 17:18 Electronically signed by Lang Hinton MD in [place] 09/30/2019 17:18
== END ==
PROVIDERS: PCP Family Medicine; Visit Provider Orthopaedic Surgery
DX: Z96.641 Presence of right artificial hip joint (principal); M25.551 Pain in right hip
CPT/HCPCS: 73502

== ENCOUNTER 2020-05-15 10:06 | Emergency (ER) | payer MEDICARE, SELFPAY ==
[2020-05-15 10:09] VITALS: BP 128/72; PULSE 69; RESP 18; TEMP 36.4; O2SAT 99; BMI 23.0
--- NOTE | 2020-05-15 10:47 | HMH.EDEYEP ---
ED Disposition Clinical Impression: Bacterial conjunctivitis, Periorbital cellulitis Disposition: Home, Self-Care Condition on Discharge: Good Instructions: DI for Blepharitis Prescriptions: Baclofen [Lioresal 10mg tablet] 10 mg PO TID PRN 10 Days #60 tab PRN Reason: Breakthru Mild Pain Transmission Status: Pending to [facility] Nabumetone 500 mg PO BID 30 Days #60 tab Transmission Status: Pending to [facility] Referrals: Foreign Stoddard MD [Primary Care Provider] - - Critical Care Critical Care Time: No Attestation: On 05/15/20, the high probability of a clinically significant, sudden or life threatening deterioration of the following system(s) required my full and direct attention, intervention and personal management. The time I documented below is in addition to time spent performing reported procedures but includes the following listed in this critical care notation. Medical Decision Making - Medical Records Medical records reviewed: Yes: I reviewed the patient's medical records. - Roberto Inquiry Pt receiving controlled substance: No Vital Signs: 05/15/20 10:09 Temperature 97.6 F Temperature Source Oral Pulse Rate [Right Radial] 69 Respiratory Rate 18 Blood Pressure [Right Arm] 128/72 Blood Pressure Mean [Right Arm] 90 Blood Pressure Source [Right Arm] Automatic Cuff Blood Pressure Position [Right Arm] Sitting 02 Sat by Pulse Oximetry 99 Oxygen Delivery Method Room Air - Lab Data Lab results reviewed: Yes: I reviewed the patient's lab results. Eye Problem HPI - General Chief complaint: Eye Problems Stated complaint: eye pain,red,swollen Time Seen by Provider: 05/15/20 10:06 Mode of Arrival: Ambulatory Limitations: No Limitations Description of Symptoms (Recalled from ER Triage Doc. by RN): Pt reports L eye pain/swelling x3 days. Pt L eye is red and swollen in the inner corner of eye. Pt denies vision issues - History of Present Illness HPI Narrative: A pleasant 85-year-old female presents the emergency department with some inflammation in the left eye and also some swelling under the lower lid. The lower lid is erythemic and swollen. She states this was has been going on for 2 days.Patient denies any recent cough or shortness of breath, patient denies any sore throat or headache, patient denies any loss of taste or smell, patient denies any malaise or fatigue, patient denies any abdominal pain nausea vomiting or diarrhea. - Related Data Home Medications Medication Instructions Recorded Confirmed fluoxetine 40 mg capsule 40 mg PO DAILY 06/24/19 05/15/20 memantine 5 mg tablet 5 mg PO BID 06/24/19 05/15/20 Donepezil HCl [Aricept 10mg 10 mg PO HS 07/05/19 05/15/20 tablet] Potassium Chloride [Klor-con 20 20 meq PO BID 07/05/19 05/15/20 mEq tablet] Aspirin [Aspirin 81mg chewable 81 mg PO DAILY 05/15/20 05/15/20 tab] Pantoprazole Sodium [Protonix 40mg 40 mg PO DAILY 05/15/20 05/15/20 tablet] lisinopriL [Lisinopril 20mg Tab] 20 mg PO DAILY 05/15/20 05/15/20 Previous Rx's Medication Instructions Recorded Baclofen [Lioresal 10mg tablet] 10 mg PO TID PRN 10 Days #60 tab 05/15/20 Nabumetone 500 mg PO BID 30 Days #60 tab 05/15/20 Allergies Allergy/AdvReac Type Severity Reaction Status Date / Time No Known Allergies Allergy Verified 09/30/19 13:49 [facility] History - Hepatitis A Screen Drug use history?: No High risk sexual behaviors?: No History of sexually transmitted infection?: No Currently employed?: No Childcare worker?: No Do you have indoor plumbing?: Yes Do you have electricity?: Yes Attestation statement:: This patient has been screened for Hepatitis A risk factors. I have reviewed the patient's past medical history: Yes Medical History: Reports:: Dementia, Depression, Hypertension, Osteoporosis Denies:: Cancer, Chronic Obstructive Pulmonary Disease (COPD), Coronary Artery Disease, Diabetes Mellitus Type
[2020-05-15 10:59] VITALS: BP 127/83; PULSE 71; RESP 14; TEMP 36.6; O2SAT 97
== END 2020-05-15 11:00 | disposition home or self-care (01) ==
PROVIDERS: Emergency Provider Family Medicine; PCP Family Medicine
DX: H10.32 Unspecified acute conjunctivitis, left eye (principal); L03.213 Periorbital cellulitis; I10 Essential (primary) hypertension; F03.90 Unspecified dementia, unspecified severity, without behavioral disturbance, psychotic disturbance, mood disturbance, and anxiety; F33.1 Major depressive disorder, recurrent, moderate; M81.0 Age-related osteoporosis without current pathological fracture; Z79.899 Other long term (current) drug therapy
CPT/HCPCS: 99281

== ENCOUNTER → 2020-07-18 09:34 | Outpatient (CLI) | payer MEDICARE, SELFPAY ==
--- NOTE | 2020-07-18 09:39 | CA_ITS ---
APPROVED REPORT Associate Director Regulatory Affairs: Dayanara Maharaj RVT Laterality: Bilateral Study Quality: Good Indications: bruits Risk Factors Hypertension: Doppler Spectral Velocity Analysis ECA (R) 67.40/11.20 cm/s ECA (L) 41.50/9.18 cm/s dICA (R) 66.30/14.10 cm/s dICA (L) 83.10/23.60 cm/s Alondra (R) 69.30/23.50 cm/s Alondra (L) 54.90/17.90 cm/s pICA (R) 56.60/18.10 cm/s pICA (L) 36.50/13.20 cm/s dCCA (R) 62.90/14.90 cm/s dCCA (L) 73.10/16.90 cm/s pCCA (R) 81.70/20.40 cm/s pCCA (L) 75.90/19.00 cm/s Vert (R) 31.60/13.30 cm/s Vert (L) 41.40/12.00 cm/s ICA/CCA 1.10 ICA/CCA 1.14 Findings Study suggests less than 20% stenosis of the right internal cartoid artery. Study suggests less than 20% stenosis of the left internal cartoid artery. Antegrade flow seen bilateral vertebral arteries. Conclusion Study suggests less than 20% stenosis of the right internal cartoid artery. Study suggests less than 20% stenosis of the left internal cartoid artery. Antegrade flow seen bilateral vertebral arteries. Electronically signed by : Lang Hinton MD 07/19/2020 17:30:55
[2020-07-19 14:29] LABS: Adenovirus F 40/41, stool Not Detected (NotDetected); Astrovirus Not Detected (NotDetected); Campylobacter Not Detected (NotDetected); Cryptosporidium Not Detected (NotDetected); Cyclospora Cayetanesis Not Detected (NotDetected); Entamoeba histolytica Not Detected (NotDetected); Enteroaggregative E coli Not Detected (NotDetected); Enteropathogenic E coli Not Detected (NotDetected); Enterotoxigenic E coli Not Detected (NotDetected); Giardia lamblia Not Detected (NotDetected); Norovirus Not Detected (NotDetected); Plesimonas Shigalloides, PCR Not Detected (NotDetected); Rotavirus A Not Detected (NotDetected); Salmonella, PCR Not Detected (NotDetected); Sapovirus Not Detected (NotDetected); Shiga-like toxin E coli Not Detected (NotDetected); Shigella Enterovasive E coli Not Detected (NotDetected); Vibrio Cholerae Not Detected (NotDetected); Vibrio, PCR Not Detected (NotDetected); Yersinia Entercolitica, PCR Not Detected (NotDetected)
[2020-07-19 16:48] LABS: Occult Blood,Stool Positive (Negative)
[2020-07-19 21:10] LABS: Clostridium Difficile A/B, PCR Detected (NotDetected)
== END ==
PROVIDERS: PCP Family Medicine; Visit Provider Nurse Practitioner Family
DX: F03.90 Unspecified dementia, unspecified severity, without behavioral disturbance, psychotic disturbance, mood disturbance, and anxiety (principal); R09.89 Other specified symptoms and signs involving the circulatory and respiratory systems; R19.7 Diarrhea, unspecified; A04.72 Enterocolitis due to Clostridium difficile, not specified as recurrent
CPT/HCPCS: 82272; 87506; 93880; G0328

== ENCOUNTER → 2020-07-18 14:26 | Outpatient (CLI) | payer MEDICARE, SELFPAY | PROVIDERS: Visit Provider Nurse Practitioner Family | DX: R09.89 Other specified symptoms and signs involving the circulatory and respiratory systems (principal); F03.90 Unspecified dementia, unspecified severity, without behavioral disturbance, psychotic disturbance, mood disturbance, and anxiety; R19.7 Diarrhea, unspecified | CPT/HCPCS: 82272; 87506; 93880; G0328 ==

== ENCOUNTER → 2020-08-02 16:13 | Outpatient (CLI) | payer MEDICARE, SELFPAY ==
--- NOTE | 2020-08-02 16:14 | MR_ITS ---
PROCEDURE: MR HEAD/BRAIN WO CON CLINICAL INDICATION: memory loss MEMORY LOSS. FAMILY HX OF DEMETIA. FORGETFULNESS. PRIOR CT 07-05-19 COMPARISON: CT CT HEAD/BRAIN WO CON from 07/05/2019 TECHNIQUE: Routine multiplanar multi echo sequences are performed without gadolinium enhancement. FINDINGS: No midline shift, mass effect, intracranial hemorrhage, or hydrocephalus is evident. Involutional changes of age noted with atrophy and nonspecific periventricular T2 white matter hyperintensity. There is mild ventricular prominence felt to be due to ex vacuo dilatation. Cerebellopontine angles, cerebellum, and brainstem are unremarkable. No mastoid effusion or sinus air-fluid level. IMPRESSION: Generalized atrophy with ex vacuole dilatation of the lateral ventricles. No acute intracranial findings. Dictated by: Lang Hinton MD 08/03/2020 12:37 Lang Hinton MD in [place] 08/03/2020 12:37
== END ==
PROVIDERS: PCP Nurse Practitioner Family; Visit Provider Specialist
DX: R41.3 Other amnesia (principal)
CPT/HCPCS: 70551

== ENCOUNTER → 2020-08-20 14:16 | Outpatient (CLI) | payer MEDICARE, SELFPAY ==
[2020-08-20 14:17] LABS: Campylobacter Not Detected (NotDetected); Enteroaggregative E coli Not Detected (NotDetected); Enteropathogenic E coli Not Detected (NotDetected); Enterotoxigenic E coli Not Detected (NotDetected); Plesimonas Shigalloides, PCR Not Detected (NotDetected); Salmonella, PCR Not Detected (NotDetected); Shiga-like toxin E coli Not Detected (NotDetected); Vibrio Cholerae Not Detected (NotDetected); Vibrio, PCR Not Detected (NotDetected); Yersinia Entercolitica, PCR Not Detected (NotDetected)
[2020-08-20 14:18] LABS: Cryptosporidium Not Detected (NotDetected); Cyclospora Cayetanesis Not Detected (NotDetected); Entamoeba histolytica Not Detected (NotDetected); Giardia lamblia Not Detected (NotDetected); Shigella Enterovasive E coli Not Detected (NotDetected)
[2020-08-24 09:34] LABS: Adenovirus F 40/41, stool Not Detected (NotDetected); Astrovirus Not Detected (NotDetected); Norovirus Not Detected (NotDetected); Rotavirus A Not Detected (NotDetected); Sapovirus Not Detected (NotDetected)
[2020-08-24 09:39] LABS: Clostridium Difficile A/B, PCR Detected (NotDetected)
== END ==
PROVIDERS: Visit Provider Nurse Practitioner Family
DX: R19.7 Diarrhea, unspecified (principal); A04.72 Enterocolitis due to Clostridium difficile, not specified as recurrent
CPT/HCPCS: 87506

== ENCOUNTER → 2020-09-13 10:29 | Outpatient (CLI) | payer MEDICARE, SELFPAY ==
[2020-09-13 10:54] LABS: Basophils # 0.1 K/mm3 (0-0.2); Basophils % 1.1 % (0.1-2.0); Eosinophils # 0.2 K/mm3 (0.0-0.4); Hematocrit 43.8 % (37.0-47.0); Hemoglobin 14.4 g/dL (12.2-16.2); Lymphocytes # 1.7 K/mm3 (0.7-4.5); Lymphocytes % 27.4 % (10-50); Mean Corpuscular Hemoglobin 32.1 pg (27.0-31.2); Mean Corpuscular Volume 97.3 fl (81-99); Mean Platelet Volume 8.7 fl (7.4-10.4); Monocytes # 0.4 K/mm3 (0.1-1.0); Monocytes % 6.3 % (1.7-9.3); Neutrophils # 3.8 K/mm3 (1.8-7.8); Neutrophils % 62.2 % (37.0-80.0); Platelet Count 215 K/mm3 (142-424); Red Cell Distribution Width 13.4 % (11.5-17.5)
[2020-09-13 11:53] LABS: Alanine Aminotransferase 56 U/L (12-78); Albumin Level 3.7 g/dl (3.5-5.0); Albumin/Globulin Ratio 1.3 (1.1-1.8); Alkaline Phosphatase 109 U/L (38-126); Anion Gap 11.4 mEq/L (5-15); Aspartate Amino Transferase 57 U/L (14-36); Bilirubin,Total 0.6 mg/dl (0.2-1.3); Blood Urea Nitrogen 19 mg/dl (7-17); Calcium 10.1 mg/dl (8.4-10.2); Carbon Dioxide 27 mmol/L (22.0-30.0); Chloride 105 mmol/L (98-107); Estimated Glomerular Filt Rate 68 ml/min (>60); GFR (African American) 83 ML/MIN (>60); Globulin 2.8 g/dL (1.3-3.2); Glucose 90 mg/dl (74-100); Potassium 4.4 mmoL/L (3.5-5.1); Sodium 139 mmol/L (136-145); Total Protein,Serum 6.5 g/dl (6.3-8.2)
[2020-09-13 12:24] LABS: Thyroid Stimulating Hormone 4.19 uIU/mL (0.465-4.68)
[2020-09-13 12:59] LABS: Vitamin B12 373 pg/mL (239-931)
[2020-09-13 13:02] LABS: Folate > 20.00 ng/mL
[2020-09-19 21:19] LABS: Vitamin B1 194.4 nmol/L (66.5-200.0)
== END ==
PROVIDERS: PCP Nurse Practitioner Family; Visit Provider Specialist
DX: R41.3 Other amnesia (principal)
CPT/HCPCS: 36415; 80053; 82607; 82746; 84425; 84443; 85025

== ENCOUNTER → 2020-11-22 18:28 | Outpatient (CLI) | payer MEDICARE, SELFPAY | PROVIDERS: PCP Nurse Practitioner Family; Visit Provider Nurse Practitioner Family | DX: N39.0 Urinary tract infection, site not specified (principal) | CPT/HCPCS: 87086; 87088; 87186 ==

== ENCOUNTER → 2021-04-30 17:40 | Outpatient (CLI) | payer MEDICARE, SELFPAY ==
[2021-04-30 17:42] LABS: Microscopic, Urine URINE MICROSCOPIC (MICROSCOPIC)
[2021-04-30 18:11] LABS: Appearance,Urine CLEAR (Clear); Bilirubin,Urine Negative (Negative); Blood, Urine Negative (Negative); Color,Urine YELLOW (Yellow); Glucose,Urine (UA) Negative (Negative); Ketones,Urine Negative (Negative); Leukocyte Esterase,Urine 1+ (Negative); Nitrate,Urine Negative (Negative); Protein,Urine Negative (Negative); Specific Gravity, Urine >= 1.030 (1.005-1.030); Urobilinogen,Urine 0.2 EU/dl (0.2)
[2021-04-30 19:17] LABS: Bacteria,Urine 1+ /lpf; RBC,Urine Occasional #/hpf (0-3); Yeast,Urine 1+ /lpf
== END ==
PROVIDERS: Visit Provider Nurse Practitioner Family
DX: N39.0 Urinary tract infection, site not specified (principal)
CPT/HCPCS: 81001; 87086

== ENCOUNTER → 2022-02-11 14:30 | Outpatient (CLI) | payer MEDICARE, SELFPAY ==
--- NOTE | 2022-02-11 14:34 | XR_ITS ---
FINAL REPORT CLINICAL HISTORY: pain post fall, suspect compression fracture FINDINGS: LUMBAR SPINE Two views were obtained. There is a mild compression fracture of L1 of uncertain age. There is 20% loss of height. There are moderate and severe degenerative changes. Moderate vascular calcifications are noted. IMPRESSION: Mild compression fracture of L1 of uncertain age. Moderate and severe degenerative changes. Reviewed, Interpreted and Dictated by Loi Mcgarry III, MD Transcribed by Ce Katz Authenticated by Loi Mcgarry III, MD on 02/11/2022 03:41:29 PM [facility]
== END ==
PROVIDERS: PCP Nurse Practitioner Family; Visit Provider Family Medicine
DX: M54.9 Dorsalgia, unspecified (principal); M54.50 Low back pain, unspecified
CPT/HCPCS: 72100

== ENCOUNTER → 2022-03-13 15:28 | Outpatient (POV) | payer MEDICARE, SELFPAY ==
[2022-03-13 15:38] VITALS: BP 121/64; PULSE 74; RESP 18; TEMP 36.3; O2SAT 96; BMI 23.3
--- NOTE | 2022-03-13 17:25 | HMH.PMCON ---
Assessment and Plan (1) Lumbar compression fracture Status: Acute Category: Medical Code(s): S32.000A - Wedge compression fracture of unspecified lumbar vertebra, initial encounter for closed fracture (2) Degenerative disc disease, lumbar Status: Acute Category: Medical Code(s): M51.36 - Other intervertebral disc degeneration, lumbar region (3) Lumbar radiculopathy Status: Acute Category: Medical Code(s): M54.16 - Radiculopathy, lumbar region - Assessment and plan all Dx Assessment and Plan for all problems:: IMAGING: Ordering Physician: Jose M Wang MD Date of Service: 02/11/22 Procedure(s): XR lumbar spine 2-3V Accession Number(s): [id number] cc: Clint Cheema APRN; Loi Mcgarry MD~ FINAL REPORT CLINICAL HISTORY: pain post fall, suspect compression fracture FINDINGS: LUMBAR SPINE Two views were obtained. There is a mild compression fracture of L1 of uncertain age. There is 20% loss of height. There are moderate and severe degenerative changes. Moderate vascular calcifications are noted. IMPRESSION: Mild compression fracture of L1 of uncertain age. Moderate and severe degenerative changes. Reviewed, Interpreted and Dictated by Loi Mcgarry III, MD Transcribed by Ce Katz Authenticated by Loi Mcgarry III, MD on 02/11/2022 03:41:29 PM [facility]: Patient continues to have worsening low back pain that started about 2 to 3 months ago when she fell. Per x-ray, patient sustained a mild, compression fracture of L1. We will order a lumbar MRI to further evaluate her low back pain. Depending on the MRI, we will either consider doing a kyphoplasty or a lumbar epidural steroid injection. Follow-up after the MRI In the meantime, I will start the patient on Celebrex 100 mg twice a day to help with some of her acute pains. Patient has been instructed to contact the clinic with any concerns before the next appointment. Dr. White has reviewed this note and agrees with this plan of care. This note was dictated using voice recognition software and make contain errors or omissions. HPI - Data of Consult Patient: new to practice Consult date: 03/13/22 Requesting Physician: MARJORIE Neely - Consult Narrative Reason for consult: Low back pain History of present illness: Ms. Neff is a 87 year old female who presents today as a new patient. Patient is referred by Dr. Wang. Thank you for the referral. Patient with medical history of osteoporosis and dementia presents today with worsening low back pain. Patient states that she fell about 2 to 3 months ago and suffered a compression fracture per the lumbar x-ray. Patient says that the pain is localized around her low back. She does not have any radicular symptoms. Denies any loss of bowel or bladder functions. Patient has been managing this pain conservatively with Tylenol and Advil with minimal relief. Per the x-ray, patient has a mild compression fracture of L1. She also has moderate to severe degenerative changes. Rates pain today as 8 out of 10. CC: MARJORIE Neely [facility] History I have reviewed the patient's past medical history: Yes Medical History: Reports:: Anxiety, Dementia, Depression, Hypertension, Migraine, Osteoporosis Denies:: Cancer, Chronic Obstructive Pulmonary Disease (COPD), Coronary Artery Disease, Diabetes Mellitus Type 1, Diabetes Mellitus Type 2, Gastroesophageal Reflux Disease(GERD), Home Oxygen, MRSA *Have you ever received a pneumonia vaccine?: Yes *Have you received a flu vaccine this season?: Yes Other Medical History: Reports: Arthritis, Cataracts, Osteoporosis, Other Laterality Cases: Left: Total Hip Replacement Other Surgeries: Yes: Appendectomy, Cholecystectomy, Colonoscopy, Hernia Repair, Tubal Ligation, Other Amputation: No Fractures: Yes - *Social History Last grade of school completed: Advanced degree Smoking Status: Never smoker Alcohol Intake: never Alcohol Intake Freq
== END ==
PROVIDERS: Visit Provider Student in an Organized Health Care Education/Training Program
DX: S32.000A Wedge compression fracture of unspecified lumbar vertebra, initial encounter for closed fracture (principal); M51.16 Intervertebral disc disorders with radiculopathy, lumbar region
CPT/HCPCS: 99202; G0463

== ENCOUNTER → 2022-03-27 16:17 | Outpatient (CLI) | payer MEDICARE, SELFPAY ==
--- NOTE | 2022-03-27 16:20 | MR_ITS ---
PROCEDURE INFORMATION: Exam: MR Lumbar Spine Without Contrast Exam date and time: 03/27/2022 4:51 PM Age: 87 years old Clinical indication: Low back pain; Additional info: Low back pain, compression fracture. Lbp x2yrs. PT fell [id number] ago and states compression FX. Patient has dementia sent over best possible images. TECHNIQUE: Imaging protocol: Multiplanar magnetic resonance images of the lumbar spine without intravenous contrast. COMPARISON: CT LUMBAR SPINE WO CON 07/05/2019 1:17 AM FINDINGS: alignment is grossly normal. signal intensity within the bone marrow is normal. conus terminates at the mid aspect of L1. Soft tissues are unremarkable. Annular disc bulges throughout the lumbar spine with the exception of L5-S1 Mild compression fracture involving the anterior and middle columns of L1. No retropulsed fragment. Marrow edema not involving the posterior elements T10-T11: Central canal and neural foramina are widely patent. T11-T12: Central canal and neural foramina are widely patent. T12-L1: Mild narrowing of the central canal secondary to facet hypertrophic changes, ligamentum flavum hypertrophic changes, and a broad-based annular bulge. L1-L2: Mild narrowing of the central canal secondary to facet hypertrophic changes, ligamentum flavum hypertrophic changes, and a broad-based annular bulge. L2-L3: Central canal and neural foramina are widely patent. L3-L4: Mild narrowing of the central canal secondary to facet hypertrophic changes, ligamentum flavum hypertrophic changes, and a broad-based annular bulge. L4-L5: Broad-based annular disc bulge effaces the anterior aspect of the thecal sac mildly so. Central canal and neural foramina are widely patent. L5-S1: Central canal and neural foramina are widely patent. IMPRESSION: Compression fracture anterior and middle columns of L1. Multilevel degenerative disc disease including mild multilevel central canal narrowing. Limited exam
== END ==
PROVIDERS: PCP Nurse Practitioner Family; Visit Provider Student in an Organized Health Care Education/Training Program
DX: M54.50 Low back pain, unspecified (principal); S32.000A Wedge compression fracture of unspecified lumbar vertebra, initial encounter for closed fracture
CPT/HCPCS: 72148; 76376

== ENCOUNTER → 2022-04-29 10:26 | Outpatient (CLI) | payer MEDICARE, SELFPAY ==
[2022-04-29 10:30] LABS: Microscopic, Urine URINE MICROSCOPIC (MICROSCOPIC)
[2022-04-29 11:40] LABS: Appearance,Urine CLOUDY (Clear); Bilirubin,Urine Negative (Negative); Blood, Urine TRACE-I (Negative); Color,Urine YELLOW (Yellow); Glucose,Urine (UA) Negative (Negative); Ketones,Urine Negative (Negative); Leukocyte Esterase,Urine 2+ (Negative); Nitrate,Urine POSITIVE (Negative); Protein,Urine Negative (Negative); Specific Gravity, Urine >= 1.030 (1.005-1.030); Urobilinogen,Urine 0.2 EU/dl (0.2)
[2022-04-29 12:10] LABS: Bacteria,Urine 4+ /lpf; Squamous Epithelial Cell,Urine Occasional #/hpf (0-5)
== END ==
PROVIDERS: PCP Emergency Medicine; Visit Provider Emergency Medicine
DX: N39.0 Urinary tract infection, site not specified; R82.90 Unspecified abnormal findings in urine
CPT/HCPCS: 81001; 87086

== ENCOUNTER → 2022-05-01 11:35 | Outpatient (CLI) | payer MEDICARE, SELFPAY | PROVIDERS: PCP Emergency Medicine; Visit Provider Emergency Medicine | DX: R82.90 Unspecified abnormal findings in urine (principal); B95.7 Other staphylococcus as the cause of diseases classified elsewhere | CPT/HCPCS: 87086; 87088; 87186 ==

== ENCOUNTER → 2022-06-09 13:49 | Outpatient (CLI) | payer MEDICARE, SELFPAY ==
[2022-06-09 13:53] LABS: Adenovirus F 40/41, stool Not Detected (NotDetected); Astrovirus Not Detected (NotDetected); Campylobacter Not Detected (NotDetected); Clostridium Difficile A/B, PCR Not Detected (NotDetected); Cryptosporidium Not Detected (NotDetected); Cyclospora Cayetanesis Not Detected (NotDetected); Entamoeba histolytica Not Detected (NotDetected); Enteroaggregative E coli Not Detected (NotDetected); Enteropathogenic E coli Not Detected (NotDetected); Enterotoxigenic E coli Not Detected (NotDetected); Giardia lamblia Not Detected (NotDetected); Norovirus Not Detected (NotDetected); Plesimonas Shigalloides, PCR Not Detected (NotDetected); Rotavirus A Not Detected (NotDetected); Salmonella, PCR Not Detected (NotDetected); Sapovirus Not Detected (NotDetected); Shiga-like toxin E coli Not Detected (NotDetected); Shigella Enterovasive E coli Not Detected (NotDetected); Vibrio Cholerae Not Detected (NotDetected); Vibrio, PCR Not Detected (NotDetected); Yersinia Entercolitica, PCR Not Detected (NotDetected)
== END ==
PROVIDERS: PCP Emergency Medicine; Visit Provider Emergency Medicine
DX: R19.7 Diarrhea, unspecified (principal)
CPT/HCPCS: 87506

== ENCOUNTER → 2022-07-02 13:28 | Outpatient (CLI) | payer MEDICARE, SELFPAY | PROVIDERS: PCP Family Medicine; Visit Provider Family Medicine | DX: N76.4 Abscess of vulva (principal); B95.2 Enterococcus as the cause of diseases classified elsewhere | CPT/HCPCS: 87086; 87088 ==

== ENCOUNTER → 2023-01-08 14:05 | Outpatient (CLI) | payer MEDICARE, SELFPAY | PROVIDERS: PCP Family Medicine; Visit Provider Family Medicine | DX: N76.4 Abscess of vulva (principal); B96.29 Other Escherichia coli [E. coli] as the cause of diseases classified elsewhere | CPT/HCPCS: 87086; 87088; 87186 ==

== ENCOUNTER 2023-01-25 13:42 | Inpatient (IN) | payer MEDICARE, SELFPAY ==
[2023-01-25] VITALS (9 sets, daily range): BP systolic 82–148; BP diastolic 50–81; PULSE 68–86; RESP 18–20; TEMP 36.7–37.6; O2SAT 84–97; BMI 24.1
--- NOTE | 2023-01-25 14:08 | XR_ITS ---
PROCEDURE INFORMATION: Exam: XR Chest Exam date and time: 01/25/2023 2:24 PM Age: 88 years old Clinical indication: Cough and shortness of breath; Additional info: Cough, weakness TECHNIQUE: Imaging protocol: Radiologic exam of the chest. Views: 1 view. COMPARISON: CR XR CHEST PORTABLE 07/05/2019 12:29 AM FINDINGS: Lungs: Unremarkable. No consolidation. Pleural spaces: Unremarkable. No pleural effusion. No pneumothorax. Heart/Mediastinum: Unremarkable. No cardiomegaly. Vasculature: There is tortuosity of the thoracic aorta secondary to atherosclerotic changes. Bones/joints: Unremarkable for age. IMPRESSION: ASVD . No active disease.
--- NOTE | 2023-01-25 14:13 | PC.NURSE ---
pt placed on O2 at 2L per NC, SaO2 84% on RA
--- NOTE | 2023-01-25 14:15 | PC.NURSE ---
NICOLE DISLA at
[2023-01-25 14:16] LABS: Influenza A, PCR Not Detected (NotDetected); Influenza B, PCR Not Detected (NotDetected)
[2023-01-25 14:19] LABS: Basophils % 0.5 % (0.1-2.0); Chloride 102 mmol/L (98-107); Eosinophils # 0.1 K/mm3 (0.0-0.4); Eosinophils % 1.5 % (0.1-12.0); Hematocrit 39.9 % (37.0-47.0); Hemoglobin 12.7 g/dL (12.2-16.2); Lymphocytes # 1.2 K/mm3 (0.7-4.5); Lymphocytes % 16.4 % (10-50); Mean Corpuscular HGB Conc 31.8 g/dL (31.8-35.4); Mean Corpuscular Hemoglobin 29.2 pg (27.0-31.2); Mean Platelet Volume 9.9 fl (7.4-10.4); Monocytes # 0.4 K/mm3 (0.1-1.0); Monocytes % 5.1 % (1.7-9.3); Neutrophils # 5.4 K/mm3 (1.8-7.8); Neutrophils % 76.6 % (37.0-80.0); Platelet Count 227 K/mm3 (142-424); Potassium 3.8 mmoL/L (3.5-5.1); Red Blood Count 4.34 M/mm3 (4.20-5.40); Red Cell Distribution Width 13.6 % (11.5-17.5); Sodium 134 mmol/L (136-145); White Blood Count 7.1 K/mm3 (4.8-10.8)
--- NOTE | 2023-01-25 14:21 | PC.NURSE ---
First set of BC sent at 1407
[2023-01-25 14:22] LABS: Alanine Aminotransferase 29 U/L (12-78); Albumin Level 3.8 g/dl (3.5-5.0); Albumin/Globulin Ratio 1.4 (1.1-1.8); Alkaline Phosphatase 86 U/L (38-126); Anion Gap 12.8 mEq/L (5-15); Aspartate Amino Transferase 35 U/L (14-36); Bilirubin,Total 0.4 mg/dl (0.2-1.3); Blood Urea Nitrogen 16 mg/dl (7-17); Carbon Dioxide 23 mmol/L (22.0-30.0); Creatinine Clearance Estimated 41 mL/min (50-200); Estimated Glomerular Filt Rate 79 ml/min (>60); GFR (African American) 96 ML/MIN (>60); Globulin 2.8 g/dL (1.3-3.2); Total Protein,Serum 6.6 g/dl (6.3-8.2)
[2023-01-25 14:23] LABS: Calcium 8.4 mg/dl (8.4-10.2); Glucose 128 mg/dl (74-100)
[2023-01-25 14:30] LABS: Lactic Acid 1.7 mmol/L (0.7-2.1)
[2023-01-25 14:36] LABS: Microscopic, Urine URINE MICROSCOPIC (MICROSCOPIC)
--- NOTE | 2023-01-25 14:36 | PC.NURSE ---
notified RT of vbg order
[2023-01-25 14:38] LABS: Appearance,Urine SL CLOUDY (Clear); Bilirubin,Urine Negative (Negative); Blood, Urine 1+ (Negative); Color,Urine YELLOW (Yellow); Glucose,Urine (UA) Negative (Negative); Ketones,Urine Negative (Negative); Leukocyte Esterase,Urine 1+ (Negative); Nitrate,Urine POSITIVE (Negative); Protein,Urine TRACE (Negative); Specific Gravity, Urine >= 1.030 (1.005-1.030); Urobilinogen,Urine 0.2 EU/dl (0.2)
[2023-01-25 14:43] LABS: Coronavirus 19, PCR Detected (NotDetected)
[2023-01-25 14:44] LABS: VBG Base Excess -3.8 mmol/L (-2.4-2.3); VBG HCO3 21.3 mmol/L (23-30); VBG Oxygen Saturation 81.8 % (50-70); VBG PCO2 36.7 mmol/L (35-51); VBG PH 7.38 mmol/L (7.31-7.41); VBG PO2 42.4 mmol/L (28-40); VBG Total CO2 22.4 mmol/L (23-27)
--- NOTE | 2023-01-25 14:45 | HMH.EDGENADL ---
Discharge Plan Disposition Patient Disposition: Admitted As Inpatient Condition: Other Chief Complaint: Weakness Clinical Impressions Clinical Impression: Acute respiratory failure with hypoxia, COVID-19, Urinary tract infection, Disorientation Discharge ED Provider: Rajendra Huynh General Adult HPI General Chief complaint: Weakness Stated complaint: unable to eat, cough, weakness, sore throat Time Seen by Provider: 01/25/23 13:55 Mode of Arrival: Wheelchair Source of Information: Patient and Relative Limitations: pt has hx of dementia Description of Symptoms (Recalled from ER Triage Doc. by RN): Pt daughter reports pt has had a wet cough, generalized weakness, sore throat, no appetite, reports has not any much of anything since of last week. History of Present Illness HPI narrative: This is an 88-year-old female with history of dementia, hyperlipidemia, hypertension, multiple UTIs who is presenting with confusion and weakness. Patient's daughter is at bedside to provide history. Per daughter, patient has had numerous episodes of diarrhea, as well as posttussive emesis. Cough has been nonproductive, but sounds wet to daughter and patient's . Patient has not had fevers, but has broken out in sweats multiple times over the past couple of days. Patient denies chest pain, but has been feeling short of breath. No abdominal pain, dysuria, hematuria, or any other concerns. Related Data Home Medications Medication Instructions Recorded Confirmed fluoxetine 40 mg capsule See Rx Instructions .Route 01/25/23 01/25/23 .COMPLEX Depression lisinopril 20 mg tablet See Rx Instructions .Route 01/25/23 01/25/23 .COMPLEX Hypertension memantine 10 mg tablet See Rx Instructions .Route 01/25/23 01/25/23 .COMPLEX Dementia pantoprazole 40 mg tablet,delayed See Rx Instructions .Route 01/25/23 01/25/23 release .COMPLEX GERD potassium chloride 20 mEq See Rx Instructions .Route 01/25/23 01/25/23 tablet,extended release(part/cryst) .COMPLEX Supplement rivastigmine 4.6 mg/24 hour See Rx Instructions .Route 01/25/23 01/25/23 transdermal patch .COMPLEX Dementia thiamine HCl (vitamin B1) 250 mg 250 mg PO DAILY Supplement 01/25/23 01/25/23 tablet Previous Rx's Medication Instructions Recorded aspirin 81 mg chewable tablet 81 mg PO DAILY [employer] #90 07/17/21 tabs loperamide 2 mg capsule (Imodium 2 mg PO Q6H PRN loose stool #20 06/11/22 A-D) caps Allergies Allergy/AdvReac Type Severity Reaction Status Date / Time Penicillins Allergy Mild Rash Verified 06/11/22 16:02 [facility] [place] Disclaimer: The information contained in this section may have been updated after the patient was seen, as this information can be updated by other users. Social History Smoking Status: Unknown if ever smoked second hand exposure: No alcohol intake: never substance use type: denies use current occupational status: retired Travel in the last 8 weeks: None household members: spouse and family housing: house current occupational exposures/hazards: No caffeine: Yes ROS Obtained: Yes unobtainable due to mental status Physical Exam General General appearance: alert, in no apparent distress and appears intoxicated Head Head exam: atraumatic, normocephalic and normal inspection Eye Eye exam: Present normal appearance, PERRL and EOMI ENT ENT exam: Present normal exam, normal oropharynx, mucous membranes moist, TM's normal bilaterally and normal external ear exam Neck Neck exam: Present normal inspection, full ROM and trachea midline; Absent meningismus or lymphadenopathy Chest Chest inspection: Present normal inspection and symmetric chest wall rise; Absent tenderness Respiratory Respiratory exam: Present other (Bilateral rales, right greater than left); Absent normal lung sounds bilaterally or respiratory distress Cardiovascular Cardiovascular exam: Present regular rate and normal rhythm; Absent JV
--- NOTE | 2023-01-25 14:46 | PC.NURSE ---
2nd BC set drawn at 1437 from [facility]
[2023-01-25 15:03] LABS: Squamous Epithelial Cell,Urine Occasional #/hpf (0-5)
[2023-01-25 15:04] LABS: Bacteria,Urine 4+ /lpf
--- NOTE | 2023-01-25 15:22 | PC.NURSE ---
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
--- NOTE | 2023-01-25 15:22 | PC.NURSE ---
Dr Huynh speaking to Dr Kennedy
--- NOTE | 2023-01-25 15:42 | PC.NURSE ---
report called to john ross rn on second floor at this time, states will send staff down to transport pt.
--- NOTE | 2023-01-25 15:49 | EXP.HP ---
History of Present Illness *Admission Date: 01/25/23 *Reason for visit:: weakness, cough, decreased PO intake *History of present illness: Ms. Neff is an 88-year-old female with history of dementia, hyperlipidemia, hypertension. Presents with her daughter to the ER because of concern for cough since Thursday and increased weakness. Patient ate only some sherbet at home today. Complains of an episode of posttussive emesis and several episodes of diarrhea over the course of the weekend. Denies any fever, chest pain, blood in vomit or stool. Daughter also reports the patient has had sweats over the past couple days but no kim fever. She does have a history of recurrent UTIs that lead to confusion and weakness. Daughter worried about UTI or some other illness. No known sick contacts at home. On initial work-up, patient noted to have grossly abnormal urinalysis with leuk esterase, nitrite, positive bacteria. She is also found to be positive for COVID-19. Chest imaging obtained showing no focal consolidation. Patient did have hypoxia on presentation however to 84% on room air. Responded well when starting nasal cannula oxygen. Tolerating 3 L nasal cannula. Given weakness, poor p.o. intake, positive COVID status and new oxygen requirement, medicine consulted for admission. Upon arriving to the floor, patient appears very weak and frail. Daughter at bedside and supplements history as patient is able to answer simple questions but not provide much history of her current condition. Has a weak cough that is mildly productive. Able to expectorate sputum using Yankauer. Denies any chest pain, nausea, vomiting at this time. States she was feeling cold and requested numerous blankets. Breathing comfortably on 3 L nasal cannula oxygen. [facility] Disclaimer: The information contained in this section may have been updated after the patient was seen, as this information can be updated by other users. Medical History Degenerative disc disease, lumbar Dementia Depression Hip fracture Osteoporosis Surgical History History of hip surgery Social History Smoking Status: Unknown if ever smoked second hand exposure: No alcohol intake: never substance use type: denies use current occupational status: retired Travel in the last 8 weeks: None household members: spouse and family housing: house current occupational exposures/hazards: No caffeine: Yes Review of Systems Review of Systems Review of systems (narrative): 14 point review of systems performed, pertinent positives and negatives as per HPI Meds Home Medications and Allergies Home Medications Medication Instructions Recorded Confirmed Type aspirin 81 mg chewable tablet 81 mg PO DAILY [facility] #90 07/17/21 01/25/23 Rx tabs loperamide 2 mg capsule (Imodium 2 mg PO Q6H PRN loose stool #20 06/11/22 01/25/23 Rx A-D) caps fluoxetine 40 mg capsule See Rx Instructions .Route 01/25/23 01/25/23 History .COMPLEX Depression lisinopril 20 mg tablet See Rx Instructions .Route 01/25/23 01/25/23 History .COMPLEX Hypertension memantine 10 mg tablet See Rx Instructions .Route 01/25/23 01/25/23 History .COMPLEX Dementia pantoprazole 40 mg tablet,delayed See Rx Instructions .Route 01/25/23 01/25/23 History release .COMPLEX GERD potassium chloride 20 mEq See Rx Instructions .Route 01/25/23 01/25/23 History tablet,extended release(part/cryst) .COMPLEX Supplement rivastigmine 4.6 mg/24 hour See Rx Instructions .Route 01/25/23 01/25/23 History transdermal patch .COMPLEX Dementia thiamine HCl (vitamin B1) 250 mg 250 mg PO DAILY Supplement 01/25/23 01/25/23 History tablet New Prescriptions to Start Prescriptions: Allergies Allergy/AdvReac Type Severity Reaction Status Date / Time Penicillins
--- NOTE | 2023-01-25 17:56 | PC.NURSE ---
new admit this shift. 2lnc for o2 support. hx of dementia. family at bedside. faxed remdesivir order [facility].
[2023-01-26] VITALS (10 sets, daily range): BP systolic 128–155; BP diastolic 67–80; PULSE 65–99; RESP 18–22; TEMP 36.6–37.4; O2SAT 92–97; BMI 25.0
--- NOTE | 2023-01-26 00:39 | PC.NURSE ---
breathing treatment given at this time, I/S given and pt instructed on use per RT.
--- NOTE | 2023-01-26 03:51 | PC.NURSE ---
pt admitted with UTI and + covid, lung sounds with bilateral rhonchi noted, pt with weak cough and productive at times, pt on 02 at 2L pnc with 02 sats 92%, VSS, low grade temp noted and treated with tylenol, no acute distress, pt incontinent and purewick in place, no edema noted, pt is alert and oriented x3, history of mild dementia and was unable to voice year or time. pt daughter remains at bedside through the night.
[2023-01-26 06:23] LABS: Alanine Aminotransferase 29 U/L (12-78); Albumin Level 3.4 g/dl (3.5-5.0); Albumin/Globulin Ratio 1.3 (1.1-1.8); Alkaline Phosphatase 86 U/L (38-126); Anion Gap 11.9 mEq/L (5-15); Aspartate Amino Transferase 43 U/L (14-36); Bilirubin,Total 0.5 mg/dl (0.2-1.3); Blood Urea Nitrogen 19 mg/dl (7-17); Calcium 8.1 mg/dl (8.4-10.2); Carbon Dioxide 26 mmol/L (22.0-30.0); Chloride 100 mmol/L (98-107); Creatinine Clearance Estimated 43 mL/min (50-200); Estimated Glomerular Filt Rate 79 ml/min (>60); GFR (African American) 96 ML/MIN (>60); Globulin 2.7 g/dL (1.3-3.2); Glucose 121 mg/dl (74-100); Magnesium 2.1 mg/dl (1.6-2.3); Potassium 3.9 mmoL/L (3.5-5.1); Sodium 134 mmol/L (136-145); Total Protein,Serum 6.1 g/dl (6.3-8.2)
[2023-01-26 06:29] LABS: C-Reactive Protein 63.4 mg/L (0-4)
[2023-01-26 06:41] LABS: Basophils % 0.1 % (0.1-2.0); Eosinophils % 0.1 % (0.1-12.0); Hematocrit 40.3 % (37.0-47.0); Hemoglobin 12.7 g/dL (12.2-16.2); Lymphocytes # 0.9 K/mm3 (0.7-4.5); Lymphocytes % 12.2 % (10-50); Mean Corpuscular HGB Conc 31.6 g/dL (31.8-35.4); Mean Corpuscular Hemoglobin 28.8 pg (27.0-31.2); Mean Corpuscular Volume 91.1 fl (81-99); Mean Platelet Volume 10.4 fl (7.4-10.4); Monocytes # 0.4 K/mm3 (0.1-1.0); Monocytes % 5.5 % (1.7-9.3); Neutrophils # 5.7 K/mm3 (1.8-7.8); Neutrophils % 82.1 % (37.0-80.0); Platelet Count 197 K/mm3 (142-424); Red Blood Count 4.43 M/mm3 (4.20-5.40); Red Cell Distribution Width 13.6 % (11.5-17.5)
--- NOTE | 2023-01-26 08:25 | HMH.PHAINT1 ---
Pharmacy Intervention Comments: Medication reconciliation completed using external fill history
--- NOTE | 2023-01-26 12:36 | HMH.PTEV ---
Physical Therapy Evaluation Rehab PT IP Evaluation Start: 01/26/23 11:00 Freq: ONCE Status: Active Protocol: Document 01/26/23 12:32 PHORNE (Rec: 01/26/23 12:36 PHORNE [id number]) Subjective/History History History 88 yowf adm to [facility] with general weakness and COVID+. She has baseline dementia and lives with family who proved all of her care at baseline for ADLs. She generally ambulates well with RW. Subjective Subjective Pt reports feeling tired this am, and remains somewhat anxious for mobility. Rehab PT IP Eval Objective Appearance Patient Behavior Appropriate,Confused,Patient Baseline Patient Orientation Person Difficulty following instructions mild Speech Pattern Clear Ambulation Patient Able to Ambulate Yes Ambulation Observation IP General Gait Pattern Observation Wide Based Gait,Shuffling Step Ambulation Distance (feet) 5 Ambulation Ability Moderate x 1 (50% assist) Balance Ability to Arise Able, uses arms to help Sitting Balance Leans or slides in chair Standing Balance Unsteady Dynamic Sitting Balance Ability Fair Dynamic Standing Balance Ability Poor Transfers Bed Transfer Ability Minimal x 1 (25% assist) Chair Transfer Ability Moderate x 1 (50% assist) Sit to Stand Bed Transfer Ability Moderate x 1 (50% assist) Sit to Stand Chair Transfer Ability Moderate x 1 (50% assist) ROM All Extremities PT ROM Status WFL MMT All Extremities PT MMT WFL Rehab PT IP prob,goals,plan Problems Date of Evaluation: 01/26/23 PT IP Problems Bed Mobility,Transfers,Gait Rehab Potential Rehab Potential Good Plan PT Intervention Plan Bed Mobility,Transfers,Gait, Therapeutic Exercise PT Plan Frequency Daily Duration LOS Discharge Goals Bed Transfer Ability Contact Guard/Hand Hold Sit to Stand Chair Transfer Ability Minimal x 1 (25% assist) Ambulation Assistive Device Rolling Walker Ambulation Distance (feet) 10 Discharge Plan PT Discharge Plan Pt is most appropriate to return home with family assist and home health therapy once medically stable for d/c. G -code Required No Eval Complexity Eval Charge Codes 68061 - Moderate Complexity
--- NOTE | 2023-01-26 13:46 | HMH.OTEV ---
OT Inpatient Evaluation Rehab OT IP Evaluation Start: 01/26/23 11:00 Freq: ONCE Status: Active Protocol: Document 01/26/23 13:35 [facility] (Rec: 01/26/23 13:46 [id number] Rehab OT IP Assessment Subjective History Pt was seen resting in chair upon arrivial. Pt was oriented x2 person and . Pt was agreeable to engage in therapy evaluation. Pt was admitted to [facility] on 01/25/23 due to weakness, cough, decreased PO intake, and COVID+. Pt reports that she required assistance for all ADLs and IADLs. Pt's daughter reports that pt lives at home with , but has 08/06 caregivers who come help both the pt and her for daily tasks. Pt's daughter reports that caregivers complete all cooking and cleaning tasks. Pt reports that she uses a rolling walker for functional mobility. Pt has a past medical history of the following: Degenerative disc disease, lumbar Dementia Depression Hip fracture Osteoporosis Subjective Oh I can do that. Objective Patient Orientation Person,Birthday Upper Extremity Gross ROM Min Limitation <25% Shoulder ROM Limitations Muscle Weakness Elbow ROM Limitations Muscle Weakness Wrist Limitations of Range of Motion Muscle Weakness Bed Mobility bed mobility-scooting,bed mobility - supine/sit Assist Level Minimal x 2 (25% assist) Transfer Training Sit/Stand Transfer Assist Level Minimal x 2 (25% assist) Chair Transfer Ability Minimal x 2 (25% assist) Lower Body Dressing Ability Assistance X1 decrease in endurance Yes Rehab OT IP prob,goals,plan Problems Date of Evaluation: 01/26/23 OT IP Problems Bed Mobility,Transfers,Balance ,Self care,Safety Rehab Potential Rehab Potential Good Equipment Needs Assistive Devices Rolling / Wheeled Walker Plan OT intervention Plan Bed Mobility,Transfers,[place]
--- NOTE | 2023-01-26 16:23 | PC.NURSE ---
pt has been alert and oriented x 3 (name, , place) t/o shift. pt was confused on year. pt does have a hx of dementia. daughter has remained at bedside. pt was up to the chair with physical therapy today. pt tolerated well. pt has rested off and on. pt lung sounds diminished with rhonci t/o. pt has a weak cough. pt has remained on 2-3L NC this shift and continuous pulse ox. pt's meds were crushed and given in applesauce due to patient not being able to swallow them. pt using purewick and was up to BSC with assist x 2.
--- NOTE | 2023-01-26 17:10 | EXP.ACUTE.PN ---
Subjective *Date: 01/26/23 *Time: 17:10 Interval history: Patient did well overnight remains afebrile. Stable on 2 to 3 L nasal cannula depending on saturations. Tolerating some p.o. intake. Daughter encouraging her to drink. No nausea or vomiting. Voice stronger on exam today. Set up at bedside and transition to bedside commode with therapy. No chest pain. Still has shortness of breath. Cough stronger today. Patient remains quite weak. Medical Exam Vital signs and Labs for Last 24 Hours: Vital Signs Temp Pulse Pulse Resp BP Pulse Ox FiO2 01/26/23 15:28 97.8 F 79 20 155/71 H 97 01/26/23 11:36 99.4 F 80 22 128/75 94 L 01/26/23 08:00 92 L 01/26/23 08:00 98.5 F 91 H 18 143/71 H 92 L 01/26/23 06:12 83 01/26/23 06:12 87 01/26/23 06:12 94 L 01/26/23 04:00 98.2 F 78 20 145/80 H 01/26/23 01:04 80 01/26/23 01:03 87 01/25/23 20:00 20 93 L 01/25/23 23:56 99.7 F H 71 20 127/67 93 L 01/25/23 20:00 99.2 F 73 20 133/81 96 01/25/23 19:27 28 Intake and Output 01/26/23 01/26/23 01/26/23 07:59 15:59 23:59 Intake Total 260 / 320 60 / 320 Output Total 200 / 500 300 / 500 Balance 60 / -180 -240 / -180 Intake: Intake, Oral Amount 60 / 60 Intake, Other Amount 10 / 10 Intake, Total IV Amount 250 / 250 Remdesivir 200 mg In 0.9 % 250 / 250 Sodium Chloride 250 ml @ 250 mls/hr IV ONCE ONE Rx#:[id number] Output: Output, Urine Amount 200 / 500 300 / 500 Other: Intake, Other Source Saline Solution Number of Unmeasured Voids 0 1 Number of Bowel Movements 1 Weight 68.181 kg Patient Weight 01/26/23 23:59 Weight 68.181 kg Laboratory Results - last 24 hr 01/25/23 14:31: Urine Color Yellow, Urine Appearance Sl cloudy, Urine pH 6.0, Ur Specific Greer >= 1.030, Urine Protein Trace, Urine Glucose (UA) Negative, Urine Ketones Negative, Urine Blood 1+, Urine Nitrate Positive, Urine Bilirubin Negative, Urine Urobilinogen 0.2, Ur Leukocyte Esterase 1+ A, Urine RBC 10-20, Urine WBC 10-20, Ur Squamous Epith Cells Occasional, Urine Bacteria 4+ 01/26/23 05:21: WBC 7.0, RBC 4.43, Hgb 12.7, Hct 40.3, MCV 91.1, MCH 28.8, MCHC 31.6 L, RDW 13.6, Plt Count 197, MPV 10.4, Neut % (Auto) 82.1 H, Lymph % (Auto) 12.2, [place] % (Auto) 5.5, Eos % (Auto) 0.1, Baso % (Auto) 0.1, Neut # (Auto) 5.7, Lymph # (Auto) 0.9, [place] # (Auto) 0.4, Eos # (Auto) 0.0, Baso # (Auto) 0.0 01/26/23 05:21: Sodium 134 L, Potassium 3.9, Chloride 100, Carbon Dioxide 26, Anion Gap 11.9, BUN 19 H, Creatinine 0.70, Estimated Creat Clear 43, Estimated GFR 79, Est GFR ( Amer) 96, Glucose 121 H, Calcium 8.1 L, Magnesium 2.1, Total Bilirubin 0.5, AST 43 H, ALT 29, Alkaline Phosphatase 86, C-Reactive Protein 63.4 H, Total Protein 6.1 L, Albumin 3.4 L D, Globulin 2.7, Albumin/Globulin Ratio 1.3 I & O for Labs for Last 24 Hours: Intake & Output 01/23/23 01/24/23 01/25/23 01/26/23 22:59 22:59 23:59 23:59 Intake Total 320 / 320 Output Total 500 / 500 Balance -180 / -180 Weight 68.181 kg Microbiology Reports for the Last 24 Hours: Microbiology 01/25/23 14:31 Urine,Catheterized Urine Culture - Preliminary Gram Negative Rods 01/25/23 17:43 Sputum - Expectorated Sputum Gram Stain - Final Constitutional: Present no acute distress, average body habitus and chronically ill appearing Head: Present atraumatic and normocephalic ENT: Present normal exam Neck: Present normal inspection Respiratory: Present rhonchi and normal respiratory effort; Absent accessory muscle use, wheezes or crackles Cardiac: Present Reg Rate and Rhythm GI: Present soft and normal bowel sounds; Absent distention or tenderness Extremities: Present normal inspection and full ROM Skin: Present intact; Absent erythema Neuro: Present Grossly Intact, alert, awake and moves all extremities Comment:: oriented
[2023-01-27] VITALS: BP 135/69; PULSE 66; RESP 20; TEMP 36.6; O2SAT 94
[2023-01-27 04:00] VITALS: BP 122/64; PULSE 64; RESP 18; TEMP 36.9; O2SAT 96; BMI 24.0
[2023-01-27 06:16] VITALS: PULSE 63; PULSE 69; O2SAT 98
[2023-01-27 06:26] LABS: Basophils % 0.2 % (0.1-2.0); Eosinophils % 0.1 % (0.1-12.0); Hematocrit 35.8 % (37.0-47.0); Hemoglobin 11.6 g/dL (12.2-16.2); Lymphocytes # 1.1 K/mm3 (0.7-4.5); Lymphocytes % 14.7 % (10-50); Mean Corpuscular HGB Conc 32.5 g/dL (31.8-35.4); Mean Corpuscular Hemoglobin 29.7 pg (27.0-31.2); Mean Corpuscular Volume 91.2 fl (81-99); Mean Platelet Volume 10.2 fl (7.4-10.4); Monocytes # 0.4 K/mm3 (0.1-1.0); Neutrophils # 5.8 K/mm3 (1.8-7.8); Neutrophils % 80.1 % (37.0-80.0); Platelet Count 198 K/mm3 (142-424); Red Blood Count 3.93 M/mm3 (4.20-5.40); Red Cell Distribution Width 13.7 % (11.5-17.5); White Blood Count 7.3 K/mm3 (4.8-10.8)
[2023-01-27 06:31] LABS: Alanine Aminotransferase 25 U/L (12-78); Albumin Level 3.1 g/dl (3.5-5.0); Albumin/Globulin Ratio 1.1 (1.1-1.8); Alkaline Phosphatase 73 U/L (38-126); Anion Gap 8.6 mEq/L (5-15); Aspartate Amino Transferase 30 U/L (14-36); Bilirubin,Total 0.4 mg/dl (0.2-1.3); Blood Urea Nitrogen 22 mg/dl (7-17); Calcium 8.3 mg/dl (8.4-10.2); Carbon Dioxide 28 mmol/L (22.0-30.0); Chloride 101 mmol/L (98-107); Creatinine Clearance Estimated 41 mL/min (50-200); Estimated Glomerular Filt Rate 79 ml/min (>60); GFR (African American) 96 ML/MIN (>60); Globulin 2.7 g/dL (1.3-3.2); Glucose 109 mg/dl (74-100); Potassium 3.6 mmoL/L (3.5-5.1); Sodium 134 mmol/L (136-145); Total Protein,Serum 5.8 g/dl (6.3-8.2)
--- NOTE | 2023-01-27 06:40 | PC.NURSE ---
PT HAS RESTED WELL THIS SHIFT. NO ACUTE CHANGES. VSS. BED ALARM IN PLACE FOR PT SAFETY.
[2023-01-27 06:48] LABS: Magnesium 2.3 mg/dl (1.6-2.3)
[2023-01-27 07:21] VITALS: BP 130/72; PULSE 71; RESP 16; TEMP 37.1; O2SAT 93
--- NOTE | 2023-01-27 09:38 | PC.NURSE ---
report from DEEP Dutton
--- NOTE | 2023-01-27 10:21 | SW/DCPLANNER ---
Addendum entered by Marija Dunaway 01/27/23 14:13: Judy arguello/ [facility] stated that services will begin 01/29/22 for this patient. Patient will discharge home today. Original Note: I spoke with patient and her daughter regarding plans once medically stable for discharge. PT stated that patient is safe to return home with home health services. Daughter concurred with this plan stating that patient and her do have sitters at home. Daughter stated that patient has used [facility] in the past and prefers to use the same agency at discharge. I did provide daughter with a private sitters list incase more sitters are needed in the future. Efraín does have all needed DME at home. Daughter stated that patient does have a hospital bed from [facility] but asked if this could be ordered by the MD. Home health services will be arranged at discharge. Patient/family had no further needs at this time. Discharge date is unknown at this time.
--- NOTE | 2023-01-27 10:45 | EXP.DC.SUM ---
General Admission date:: 01/25/23 Discharge date: 01/27/23 HPI HPI HPI: Ms. Neff is an 88-year-old female with history of dementia, hyperlipidemia, hypertension. Presents with her daughter to the ER because of concern for cough since Thursday and increased weakness. Patient ate only some sherbet at home today. Complains of an episode of posttussive emesis and several episodes of diarrhea over the course of the weekend. Denies any fever, chest pain, blood in vomit or stool. Daughter also reports the patient has had sweats over the past couple days but no kim fever. She does have a history of recurrent UTIs that lead to confusion and weakness. Daughter worried about UTI or some other illness. No known sick contacts at home. On initial work-up, patient noted to have grossly abnormal urinalysis with leuk esterase, nitrite, positive bacteria. She is also found to be positive for COVID-19. Chest imaging obtained showing no focal consolidation. Patient did have hypoxia on presentation however to 84% on room air. Responded well when starting nasal cannula oxygen. Tolerating 3 L nasal cannula. Given weakness, poor p.o. intake, positive COVID status and new oxygen requirement, medicine consulted for admission. Upon arriving to the floor, patient appears very weak and frail. Daughter at bedside and supplements history as patient is able to answer simple questions but not provide much history of her current condition. Has a weak cough that is mildly productive. Able to expectorate sputum using Yankauer. Denies any chest pain, nausea, vomiting at this time. States she was feeling cold and requested numerous blankets. Breathing comfortably on 3 L nasal cannula oxygen. Hospital Course Hospital Course Hospital Course: 88-year-old female with history of dementia and hypertension.? Presented with weakness, poor p.o. intake, grossly abnormal urinalysis, and new finding of hypoxia.? Positive for COVID-19.? ER consulted medicine for admission.? Decision made to admit for supplemental oxygen and treatment of UTI and COVID-pneumonia.? Problems addressed as follows: COVID-19 pneumonia Hypoxia -Presented with new oxygen requirement and positive for COVID. Admitted for initiation of COVID bundle. Started on remdesivir, dexamethasone, famotidine, Lovenox, vitamins including zinc, vitamin C, vitamin D. Patient tolerated treatment well with improvement in her respiratory symptoms. Therapy evaluated, found to require minimal assistance and was appropriate for discharge home with home health. Weaned to room air by day of discharge. Continue incentive spirometry. Initially treated with antibiotics (ceftriaxone). Weaned to cefdinir for coverage of both upper respiratory and UTI. UTI -Urinalysis grossly abnormal.? Culture positive for E. coli. Sensitive to cephalosporins. Transition to cefdinir. Plan to complete 7 days total of antibiotics. Dementia -Continue home rivastigmine patch. Resume amantadine at discharge. Continued home fluoxetine. No changes to this regimen. Hypertension: Resumed lisinopril at half home dose of 10 mg tomorrow as blood pressure is well controlled on this regimen. Change to dose and med rec. Medically stable for discharge home with family. Home health referral placed. Follow-up with PCP in the next 1 to 2 weeks for further evaluation Exam Data for Last 24 hours Vital signs and Labs for Last 24 Hours: Temp Pulse Resp BP Pulse Ox FiO2 98.7 F 71 16 130/72 93 L 28 01/27/23 07:21 01/27/23 07:21 01/27/23 07:21 01/27/23 07:21 01/27/23 07:21 01/25/23 19:27 Laboratory Results - last 24 hr 01/27/23 06:00: Sodium 134 L, Potassium 3.6, Chloride 101, Carbon Dioxide 28, Anion Gap 8.6, BUN 22 H, Creatinine 0.70, Estimated Creat Clear 41, Estimated GFR 79, Est GFR ( Amer) 96, Glucose 109 H, Calcium 8.3 L, Total Bilirubin 0.4, AST 30 D, ALT 25, Alkaline Phosphatase 73, Total Protein 5.8 L, Albumin 3.1 L, Alyssa
[2023-01-27 11:04] VITALS: BP 125/67; PULSE 72; RESP 17; TEMP 37.1; O2SAT 92
--- NOTE | 2023-01-27 11:38 | CARE MANAGER ---
Patient requires positioning of the body in ways not feasible with an ordinary bed in order to alleviate pain. DEEP Cabezas
--- NOTE | 2023-01-27 12:49 | PC.NURSE ---
pharmacy to discuss home medications.
--- NOTE | 2023-01-27 12:55 | HMH.PHAINT1 ---
Pharmacy Intervention Comments: Discussed discharge medications with patient and patient's daughter. Both verbalized understanding and had no questions at this time
--- NOTE | 2023-01-28 13:43 | CARE MANAGER ---
Called and spoke with patient's daughter, who stated that patient is doing very well . She also stated that patient has started medication prescribed at discharge and that she is aware of f/u appt.
== END 2023-01-27 13:40 | disposition home health service (06) | DRG 177 ==
LOC: ER 14:48 → 2ND 16:07
PROVIDERS: Admitting Provider Internal Medicine Adolescent Medicine; Emergency Provider Emergency Medicine; PCP Emergency Medicine; Visit Provider Internal Medicine Adolescent Medicine
DX: U07.1 COVID-19 (principal); J96.01 Acute respiratory failure with hypoxia; N39.0 Urinary tract infection, site not specified; E78.5 Hyperlipidemia, unspecified; Z87.440 Personal history of urinary (tract) infections; I10 Essential (primary) hypertension; M81.0 Age-related osteoporosis without current pathological fracture; G30.9 Alzheimer's disease, unspecified; F02.80 Dementia in other diseases classified elsewhere, unspecified severity, without behavioral disturbance, psychotic disturbance, mood disturbance, and anxiety; Z66 Do not resuscitate; B96.20 Unspecified Escherichia coli [E. coli] as the cause of diseases classified elsewhere
CPT/HCPCS: 36415; 71045; 80053; 81001; 82803; 83605; 83735; 84145; 85025; 86140; 87040; 87070; 87086; 87088; 87186; 87205; 94640; 94760; 94761; 97162; 97166; 97530; 99285; C9803; J0696; U0003; U0005

== ENCOUNTER → 2023-03-27 13:08 | Outpatient (CLI) | payer MEDICARE, SELFPAY ==
[2023-03-27 13:17] LABS: Adenovirus F 40/41, stool Not Detected (NotDetected); Astrovirus Not Detected (NotDetected); Campylobacter Not Detected (NotDetected); Clostridium Difficile A/B, PCR Not Detected (NotDetected); Cryptosporidium Not Detected (NotDetected); Cyclospora Cayetanesis Not Detected (NotDetected); Entamoeba histolytica Not Detected (NotDetected); Enteroaggregative E coli Not Detected (NotDetected); Enteropathogenic E coli Not Detected (NotDetected); Enterotoxigenic E coli Not Detected (NotDetected); Giardia lamblia Not Detected (NotDetected); Norovirus Not Detected (NotDetected); Plesimonas Shigalloides, PCR Not Detected (NotDetected); Rotavirus A Not Detected (NotDetected); Salmonella, PCR Not Detected (NotDetected); Sapovirus Not Detected (NotDetected); Shiga-like toxin E coli Not Detected (NotDetected); Shigella Enterovasive E coli Not Detected (NotDetected); Vibrio Cholerae Not Detected (NotDetected); Vibrio, PCR Not Detected (NotDetected); Yersinia Entercolitica, PCR Not Detected (NotDetected)
== END ==
PROVIDERS: PCP Emergency Medicine; Visit Provider Emergency Medicine
DX: R19.7 Diarrhea, unspecified (principal)
CPT/HCPCS: 87506